=== PATIENT | male | born 1935 | race Caucasian/White ===

== ENCOUNTER 2017-10-23 15:46 | Inpatient (IN) ==
[2017-10-23] MEDS ORDERED: methylPREDNISolone 125 MG/2 ML VIAL IVP ONE (16:03)
[2017-10-23] MEDS ORDERED: 0.9 % Sodium Chloride 1,000 ML IVC ONE (16:06)
[2017-10-23 16:30] LABS: INR 1.5; Prothrombin Time 16.1 Seconds (9.4-12.1)
[2017-10-23 16:36] LABS: Potassium 6.2 mEq/L (3.5-4.5)
[2017-10-23 16:37] LABS: Calcium 9.1 mg/dL (8.6-10.8)
[2017-10-23 16:44] LABS: Basophils # 0.1 K/mcL (0.0-0.2); Basophils % 0.5 %; Eosinophils # 0.3 K/mcL (0.0-0.6); Eosinophils % 2.2 %; Hematocrit 34.4 % (37.5-50.1); Hemoglobin 10.5 g/dL (12.9-16.9); Immature Granulocytes % 1.3 % (0-4); Lymphocytes # 0.9 K/mcL (0.6-4.6); Lymphocytes % 6.7 %; Mean Corpuscular HGB Conc 30.5 g/dL (31.6-35.5); Mean Corpuscular Hemoglobin 22.8 pg (28.0-33.3); Mean Corpuscular Volume 74.8 fL (83.0-100.0); Monocytes # 0.9 K/mcL (0.0-1.3); Monocytes % 6.9 %; Neutrophils # 11.1 K/mcL (1.6-8.9); Platelet Count 329 K/mcL (140-400); Red Cell Distribution Width 16.9 % (11.5-14.5); Segmented Neutrophils % 82.4 %
[2017-10-23] MEDS: dilTIAZem HCl 100 MG in D5% in Water 50 ML IVC SCH (16:49)
--- NOTE | 2017-10-23 16:49 | Emergency Department Note ---
Disposition Clinical Impression: Hyperkalemia, Atrial fibrillation with rapid ventricular response Renal failure Qualifiers: Renal failure chronicity: acute Acute renal failure type: unspecified Qualified Code(s): N17.9 - Acute kidney failure, unspecified Disposition: Admitted As Inpatient Condition: Fair General Adult HPI - General Chief complaint: ED Shortness of Breath/Dyspnea Stated complaint: SOB Source: patient, family Limitations: no limitations Nursing Notes Reviewed: Yes Vital Signs Reviewed: Yes - History of Present Illness HPI Narrative: 82-year-old male with past medical history of asthma and uses emergency department with shortness of breath and urinary retention for last 5 days. Patient was seen in urgent care today and they sent him to the emergency department. Patient states that this is not feel like his asthma. He is also noticed some swelling in his lower extremities and feels as if his abdomen is more distended. Patient denies any chest pain, pressure, tightness, fever, chills, weakness, previous history of DVTs, calf pain. Pain Scale: 0 - Related Data Home Medications Medication Instructions Recorded Confirmed Garlic [Odor Free Garlic] 100 mg PO DAILY 10/23/17 10/23/17 Multivit-Min/FA/Lycopen/Lutein 1 tab PO DAILY 10/23/17 10/23/17 [Men 50 Plus Multivitamin Tab] Vitamin E Acetate [Vitamin E] 400 unit PO DAILY 10/23/17 10/23/17 Allergies Allergy/AdvReac Type Severity Reaction Status Date / Time aspirin Allergy Swelling Verified 10/23/17 15:50 of Lip/Tongue/Throat All systems ED: reviewed and negative except as stated. Review of Systems: As Per HPI Constitutional: Denies: fever, chills, weakness Cardiovascular: Reports: dyspnea on exertion. Denies: chest pain Respiratory: Reports: dyspnea Gastrointestinal: Denies: abdominal pain, nausea, vomiting Genitourinary: Denies: urgency, dysuria, frequency Past Medical History - Past Medical History Attestation: Yes The following information was validated with the patient. Medical history: Reports: asthma, other Psychiatric history: Reports: no psych history - Social History Smoking Status: Former smoker Smokeless Tobacco Status: No Alcohol use: Reports: none Drug use: Reports: none Physical Exam CONSTITUTIONAL: Alert and oriented X3, well-nourished, well appearing, in no apparent distress HEAD: Right eye appears very hazy EYES: PERRL, no scleral icterus. NOSE: The nose is normal in appearance without rhinorrhea RESP: Normal chest excursion with respiration; breath sounds clear and equal bilaterally; no wheezes, rhonchi, or rales CARD: irreegular rhythm, without murmurs, rub or gallop ABD: Mildly distended; non-tender, soft,without rigidity, rebound or guarding Lower extremities: 1+ pitting edema bilaterally SKIN: Normal for age and race; warm and dry; no apparent lesions - General Limitations: no limitations General appearance: alert, in no apparent distress Course Vital Signs Temperature 98.7 F 10/23/17 15:47 Pulse Rate 131 10/23/17 15:47 Respiratory Rate 22 10/23/17 15:47 Blood Pressure 151/88 10/23/17 15:47 O2 Sat by Pulse Oximetry 98 10/23/17 15:47 Temperature 98.3 F 10/23/17 21:09 Pulse Rate 110 10/23/17 21:09 Respiratory Rate 20 10/23/17 21:09 Blood Pressure 159/84 10/23/17 21:09 O2 Sat by Pulse Oximetry 97 10/23/17 21:09 Oxygen Delivery Oxygen Delivery Room Air Medical Decision Making - [facility] Narrative Medical decision making narrative: 82-year-old male presents to emergency department with shortness of breath and inability to urinate as well as concerned that the patient was in atrial fibrillation at urgent care. The electrocardiogram revealed atrial fibrillation with rapid ventricular response with a rate in the 130s. Patient had a creatinine of 17.42. He was hyperkalemic at 6.2. EKG read did not reveal any peak T waves. Patient's last creatinine in February of this year was within normal limits as well as the potassium. Bladder scan revealed 200 mLs of urine within the bladder. Dr. Pyle from nephrology was consulted and he stated to give 45 g of Kayexalate as well as start half normal saline at 125 mils per hour with 75 mEq of bicarbonate. There was also concern from the turner splitter machine operator asked to watch for volume overload and hypoxia. Patient's currently 97% on room air at this time. This is an asthma patient who had mild wheezes on lung exam. He was given 125 mg Solu-Medrol IV. Cardiology was consulted, and Dr. Randhawa agreed to follow patient on the case. He stated that the most important factor in controlling the atrial fibrillation would be to control the hyperkalemia. Patient was given 20 mg Cardizem bolus as well as started on Cardizem drip at 5 mg per hour. There was then titrated up to 10 mg per hour. Patient's chest x-ray revealed cardiomegaly but radiology did not appreciate any pleural effusions, but physical exam revealed mild abdominal distention with 1+ pitting edema. BNP is 737 which iw significantly increased from his previous one. This could either be due to his intermittent fibrillation with RVR or is decreased renal function. I discussed admission with the hospitalist and he agreed to accept the admission. I spoke with the patient and family at bedside and they agreed. Chest X-Ray 10/23/17 16:03 IMPRESSION: 1. No acute cardiopulmonary disease. 2. Cardiomegaly, without overt failure. D/ / Foreign Guy MD / Foreign Guy MD Interpreting Provider: Foreign Guy MD - Lab Data Result diagrams: 10/23/17 16:17 10/23/17 16:17 Lab Results 10/23/17 10/23/17 10/23/17 Range/Units 16:17 16:17 16:17 WBC 13.4 H (4.3-11.1) K/mcL RBC 4.60 (4.19-5.50) M/mcL Hgb 10.5 L (12.9-16.9) g/dL Hct 34.4 L (37.5-50.1) % MCV 74.8 L (83.0-100.0) fL MCH 22.8 L (28.0-33.3) pg MCHC 30.5 L (31.6-35.5) g/dL RDW 16.9 H (11.5-14.5) % Plt Count 329 (140-400) K/mcL MPV 10.0 (9.4-12.4) fL Immature Gran % 1.3 (0-4) % Seg Neutrophils % 82.4 % Lymphocytes % 6.7 % Monocytes % 6.9 % Eosinophils % 2.2 % Basophils % 0.5 % Neutrophils # 11.1 H (1.6-8.9) K/mcL Lymphocytes # 0.9 (0.6-4.6) K/mcL Monocytes # 0.9 (0.0-1.3) K/mcL Eosinophils # 0.3 (0.0-0.6) K/mcL Basophils # 0.1 (0.0-0.2) K/mcL PT 16.1 H (9.4-12.1) Seconds INR 1.5 Sodium 137 (136-145) mEq/L Potassium 6.2 H (3.5-4.5) mEq/L Chloride 100 (98-109) mEq/L Carbon Dioxide 18 L (19-29) mEq/L BUN 92 H (8-26) mg/dL Creatinine 17.42 H (0.72-1.25) mg/dL Est GFR ( Amer) 3 L (> 60) Est GFR (Non-Af Amer) 3 L (> 60) BUN/Creatinine Ratio 5 L (6-26) Glucose 113 H (70-99) mg/dL Calculated Osmolality 313 H (280-300) Calcium 9.1 (8.6-10.8) mg/dL Phosphorus 6.1 H (2.3-4.7) mg/dL Magnesium 3.3 H (1.6-2.6) mg/dL Troponin I (0-0.03) ng/mL B-Natriuretic Peptide (0-100) pg/mL TSH (0.350-4.840) mcIU/mL 10/23/17 10/23/17 10/23/17 Range/Units 16:17 16:17 16:17 WBC (4.3-11.1) K/mcL RBC (4.19-5.50) M/mcL Hgb (12.9-16.9) g/dL Hct (37.5-50.1) % MCV (83.0-100.0) fL MCH (28.0-33.3) pg MCHC (31.6-35.5) g/dL RDW (11.5-14.5) % Plt Count (140-400) K/mcL MPV (9.4-12.4) fL Immature Gran % (0-4) % Seg Neutrophils % % Lymphocytes % % Monocytes % % Eosinophils % % Basophils % % Neutrophils # (1.6-8.9) K/mcL Lymphocytes # (0.6-4.6) K/mcL Monocytes # (0.0-1.3) K/mcL Eosinophils # (0.0-0.6) K/mcL Basophils # (0.0-0.2) K/mcL PT (9.4-12.1) Seconds INR Sodium (136-145) mEq/L Potassium (3.5-4.5) mEq/L Chloride (98-109) mEq/L Carbon Dioxide (19-29) mEq/L BUN (8-26) mg/dL Creatinine (0.72-1.25) mg/dL Est GFR ( Amer) (> 60) Est GFR (Non-Af Amer) (> 60) BUN/Creatinine Ratio (6-26) Glucose (70-99) mg/dL Calculated Osmolality (280-300) Calcium (8.6-10.8) mg/dL Phosphorus (2.3-4.7) mg/dL Magnesium (1.6-2.6) mg/dL Troponin I 0.01 (0-0.03) ng/mL B-Natriuretic Peptide 737 H (0-100) pg/mL TSH 3.941 (0.350-4.840) mcIU/mL - EKG Data EKG #1 EKG attestation: Yes I reviewed and interpreted this EKG. EKG results narrative: 15:59 Ventricular rate 119 bpm, no P waves, QRS duration 170 ms, QT 314 ms, QTC 385 ms , left axis deviation Atrial fibrillation with rapid ventricular response with ventricular rate of 119 bpm. There are no peaked T waves. There are no ischemic ST changes noted on this electrocardiogram. Atrial fibrillation is new compared to a previous study performed on 03/16/2017. Attestation Statement - Attestation Attestation: I examined this patient and my medical decision-making was reviewed with the Resident Physician. I agree with the documented findings, disposition and treatment plan as described except to the extent set forth below. 82-year-old male presents ED because of urinary retention and rapid heart rate. He said inability to urinate today. He has also had increasing coughing and wheezing. He was seen in urgent care recently and started on ipratropium. He was seen back in urgent care and when he reportedly was unable to urinate, vital signs were obtained and found to be tachycardic. He was sent here for further evaluation. He denies any chest pain or discomfort. No change in his baseline dyspnea. No fevers or chills. No flank or back pain. No abdominal pain. Elderly male, hard of hearing, no apparent distress. Oropharynx extremities warm and dry. Neck supple. Chest with scattered expiratory wheezes. Cardiac exam tachycardic, irregular. No murmurs appreciated. Chest wall nontender. Abdomen soft nondistended nontender. No bladder distention appreciated. No flank tenderness. Extremities with symmetric, mild edema. EKG revealed atrial fibrillation with rapid ventricular response. His heart rate ranged from 120-140s. The onset of the defibrillation is uncertain. Point of care ultrasound revealed bladder with about 200-250 mL. No hydronephrosis noted. Labs reveal acute renal failure with a creatinine of 17 and a potassium 6.2, bicarbonate of 18. Chest x-ray with no acute changes. He started on Cardizem for rate control. He is also started on saline along with additional sodium bicarbonate to treat the metabolic acidosis. 45 g of Kayexalate for hyperkalemia. He will be admitted for further management and evaluation. The high probability of a clinically significant, sudden or life threatening deterioration of the [renal and cardiovsculr] system(s) required my full and direct attention, intervention and personal management. The aggregate critical care time was [35] minutes. This time is in addition to time spent performing reported procedures but includes the following: [x] Data Review and interpretation [x] Patient assessment and monitoring of vital signs [x] Documentation [x] Medication orders and management
[2017-10-23] MEDS ORDERED: Sodium Bicarbonate 50 MEQ/50 ML VIAL IVP ONE (17:12)
[2017-10-23 17:28] LABS: Magnesium 3.3 mg/dL (1.6-2.6); Phosphorous 6.1 mg/dL (2.3-4.7)
[2017-10-23] MEDS ORDERED: 0.9 % Sodium Chloride 250 ML ONE (22:17)
[2017-10-23] MEDS ORDERED: Naloxone 0.4 MG/ML INJ IVP PRN (23:01)
--- NOTE | 2017-10-23 23:01 | Internal Med History&Physical ---
<Bettina Perez - Last Filed: 10/24/17 02:29> Date of Encounter: 10/24/17 Time of Encounter: 22:55 Assessment and Plan (1) Atrial fibrillation with rapid ventricular response Current visit: Yes Status: Acute New onset A.fib with RVR EKG revealed atrial fibrillation with rapid ventricular response with a rate in the 130s. No peak T waves Considering underlying cause is urinary retention vs infectious vs cardiac related BNP 737 (previous 123) HR 118 Cardiology following Cardizem drip echo pending continuous cardiac monitoring (2) Renal failure Current visit: Yes Status: Acute Patient presented with acute renal failure creatinine 17.4 Most likely due to urinary retention that is probably due to outflow obstruction huang cath in place nephrology following IV fluids retroperintoneal U/S ordered close monitoring of creatinine strict I/O avoid nephrotixic agents Qualifiers: Renal failure chronicity: acute Acute renal failure type: unspecified Qualified Code(s): N17.9 - Acute kidney failure, unspecified (3) Hyperkalemia Current visit: Yes Status: Acute Potassium 6.2 EKG- A.fib with RVR. No peaked T waves sodium bicarbonate 75mg Kayexalate 45mg 1/2 Normal saline close monitoring of potassium continuous cardiac monitoring (4) Decreased urination Current visit: Yes Status: Acute Patient reports decreased urination. He has only urinated 2x a day with less urine and a weak stream. He normally urinates 6-7x day with nocturia 2x a night. He does not have a urologist. Denies dysuria, hematuria. Concern for urinary outflow obstruction possibly secondary to BPH bladder scan showed 700ml Huang cath placed and removed 1020ml urine. Straw colored urine. Urinalysis: + leukocyte esterase Cipro 200 BID retroperintoneal U/S ordered strict I/O (5) Asthma Current visit: Yes Status: Acute Patient has history of asthma. He has wheezing on exam. CXR- cardiomegaly duonebs albuterol prn Qualifiers: Qualified Code(s): J45.909 - Unspecified asthma, uncomplicated (6) DVT prophylaxis Current visit: Yes Status: Acute Internal Medicine - H&P: HPI Chief complaint: shortness of breathe Admitted From: Emergency Dept Plans for Post Hospital Care: Home History of present illness: Mr. Abreu is a 82 year old male with a past medical history of asthma presented to the ED complaining of shortness of breathe for the past 3 days that has not gotten better. He stated that his albuterol helped and that exerting himself made it worse. He only came to the ED at the insistence of his . He also reports that his abdomen is getting bigger for the past 3 weeks. He has been urinating less as well, only 2 times a day with less urine and a weak stream. He normally urinates 6-7x day with nocturia 2x a night. He does not have a urologist. He admits to wheezing. He denies headache, change in vision, syncope, chest pain, palpitations, cough, nausea, vomiting, itching, abdominal pain, diarrhea, dysuria, hematuria. He denies recent travel, sickness , fall, trauma. He quit smoking and drinking 40years ago. In the ED the patient was found to be in A.fib with RVR no peaked T waves. RUDDY creatinine 17.4 and potassium 6.2 Nephrology was consulted and recommended the patient get kayexalate and sodium bicarb. Cardiology was consulted and recommended cardizem drip. Past Med Surg Social Fam HX - Past Medical History Medical history: asthma, other Psychiatric history: no psych history - Past Surgical History Surgical History: no surgical history, other - Social History Smoking Status: Former smoker Smokeless Tobacco Status: No Alcohol use: none Drug use: none Current living situation: Home - Family History Mother Hx Family Cardiac Disorders: No Hx Family Cancer: No Internal Medicine - H&P: Meds Garlic [Odor Free Garlic] 100 mg PO DAILY 10/23/17 [History] Multivit-Min/FA/Lycopen/Lutein [Men 50 Plus Multivitamin Tab] 1 tab PO DAILY 05/04 [History] Vitamin E Acetate [Vitamin E] 400 unit PO DAILY 10/23/17 [History] 3 Allergy/AdvReac Type Severity Reaction Status Date / Time aspirin Allergy Swelling Verified 10/23/17 15:50 of Lip/Tongue/Throat All Systems PM: A 10-system review of systems was performed and is negative for pertinent findings except as documented above in the HPI. - Constitutional Constitutional: no chills, no fever(s), no falls - EENT Eyes: no blurry vision, no change in vision Nose, mouth and throat: no sore throat - Cardiovascular Cardiovascular ROS IM: no chest pain, no diaphoresis, no edema, no syncope - Respiratory Respiratory: dyspnea, wheezing, no cough, no stridor, no excessive phlegm production - Gastrointestinal Gastrointestinal: no abdominal pain, no hematemesis, no nausea, no vomiting - Genitourinary Genitourinary ROS male: difficulty urinating, no dysuria, no flank pain, no hematuria, no nocturia, no urinary frequency - Integumentary Integumentary IM: no pruritus, no rash - Neurological Neurological ROS: no dizziness, no focal weakness, no headache(s) - Constitutional Vitals: Temp Pulse Resp BP Pulse Ox 98.3 F 110 20 159/84 97 10/23/17 21:09 10/23/17 21:09 10/23/17 21:09 10/23/17 21:09 10/23/17 21:09 General appearance: Present: A&O X 3, pleasant, no acute distress - Head Head exam: Present: atraumatic, normocephalic - Eye Eye exam: Present: conjunctival injection. Absent: scleral icterus - ENT ENT exam: Present: mucous membranes moist - Neck Neck exam general surgery: Present: supple. Absent: lymphadenopathy, tenderness - Respiratory Respiratory exam: Present: wheezes (right upper lung). Absent: rales, rhonchi - Cardiovascular Cardiovascular exam: Present: irregular rhythm. Absent: clicks - GI/Abdominal GI/Abdominal exam: Present: distended, normal bowel sounds, soft. Absent: firm , guarding, tenderness - Extremities Exam Extremities exam: Present: normal inspection. Absent: calf tenderness, pedal edema - Back Exam Back exam: Present: normal inspection. Absent: rash noted, tenderness - Skin Skin exam: Present: dry, intact Internal Med - H&P Results - Labs CBC & Chem 7: 10/23/17 16:17 10/23/17 23:17 <Shayy Lin - Last Filed: 10/24/17 03:51> Date of Encounter: 10/23/17 Internal Medicine - H&P: HPI History of present illness: Mr. Abreu is a 82 year old male All Systems PM: A 10-system review of systems was performed and is negative for pertinent findings except as documented above in the HPI. - Constitutional Vitals: Temp Pulse Resp BP Pulse Ox 97.9 F 118 20 150/90 97 10/23/17 23:54 10/23/17 23:54 10/23/17 23:54 10/23/17 23:54 10/23/17 23:54 Internal Med - H&P Results - Labs CBC & Chem 7: 10/24/17 03:31 10/23/17 23:17 Labs: Short CBC 10/24/17 Range/Units 03:31 WBC 10.7 (4.3-11.1) K/mcL Hgb 9.7 L (12.9-16.9) g/dL Hct 30.6 L (37.5-50.1) % Plt Count 278 (140-400) K/mcL Neutrophils # 9.9 H (1.6-8.9) K/mcL BMP 10/23/17 23:17 Sodium 138 Potassium 6.1 H Chloride 102 Carbon Dioxide 16 L BUN 92 H Creatinine 17.20 H Glucose 164 H Calcium 9.0 Liver Function 10/23/17 Range/Units 23:17 Total Bilirubin 0.6 (0.2-1.2) mg/dL AST 18 (5-34) Units/L ALT 20 (0-55) Units/L Alkaline Phosphatase 80 (38-126) Units/L Albumin 2.6 L (3.5-5.0) g/dL Urine 10/24/17 Range/Units 00:10 Urine Color Dark Yellow (Yellow) Urine Clarity Cloudy A (Clear) Urine pH 6.0 (5.0-8.0) pH Units Ur Specific [place] 1.019 (1.010-1.025) Urine Protein Trace (Neg-Trace) mg/dL Urine Glucose (UA) Normal (Normal) mg/dL - Attending Attestation Patient was seen Dec , I personally seen and examined the patient and discuss with resident. Chest breath sounds shallow with scattered wheezing, in the abdomen soft nontender no organomegaly was on active extremities no edema neuro nonfocal. It appears to me that patient is gradually developing difficulty in micturition followed by nocturia and now having trouble urinating at all. On examination bladder seems full. A Huang catheter placed and immediately almost a liter of urine recovered which is straw color. Ultrasound of abdomen ordered to see if he has hydronephrosis contributing to post obstructive uropathy with elevated creatinine. He will be hydrated. His UA looks suspicious for infection and therefore urine culture requested and IV Cipro was started. He also has A. fib with RVR for which she is on IV Cardizem. Echocardiogram ordered. Nephrology has been consulted.
[2017-10-23] MEDS ORDERED: Ipratropium/Albuterol Neb 3 ML IH PRN (23:31)
[2017-10-23 23:55] LABS: Albumin 2.6 g/dL (3.5-5.0); Albumin/Globulin Ratio 0.6 (1.1-2.2); Bilirubin,Total 0.6 mg/dL (0.2-1.2); Globulin 4.6 g/dL (2.4-3.5); Potassium 6.1 mEq/L (3.5-4.5); Total Protein 7.2 g/dL (6.0-8.3)
[2017-10-24] MEDS ORDERED: Ipratropium/Albuterol Neb 3 ML IH SCH (00:15)
[2017-10-24 01:02] LABS: Bilirubin,Urine Negative (Negative); Blood,Urine Moderate (Negative); Clarity,Urine Cloudy (Clear); Color,Urine Dark Yellow (Yellow); Glucose,Urine (UA) Normal (Normal); Ketones,Urine Negative (Negative); Leukocyte Esterase,Urine Large (Negative); Nitrite,Urine Negative (Negative); Protein,Urine Trace mg/dL (Neg-Trace); Specific Gravity,Urine 1.019 (1.010-1.025); Urobilinogen,Urine Normal (Normal)
[2017-10-24 01:05] LABS: Hyaline Casts,Urine None Seen per lpf (None-Few); Squamous Epithelial Cell,Urine None Seen per lpf (None-Few); WBC,Urine TNTC per hpf (0-3)
[2017-10-24 01:06] LABS: Potassium,Urine 43.7 mEq/L
[2017-10-24 01:25] LABS: Bacteria,Urine Few per hpf (None-Few); RBC,Urine TNTC per hpf (0-3)
[2017-10-24] MEDS: Ipratropium/Albuterol Neb 3 ML IH SCH ×5 (01:35→22:45)
[2017-10-24 03:39] LABS: Basophils % 0.2 %; Hematocrit 30.6 % (37.5-50.1); Hemoglobin 9.7 g/dL (12.9-16.9); Immature Granulocytes % 1.1 % (0-4); Lymphocytes # 0.6 K/mcL (0.6-4.6); Lymphocytes % 5.3 %; Mean Corpuscular HGB Conc 31.7 g/dL (31.6-35.5); Mean Corpuscular Hemoglobin 23.2 pg (28.0-33.3); Mean Platelet Volume 9.6 fL (9.4-12.4); Monocytes # 0.1 K/mcL (0.0-1.3); Neutrophils # 9.9 K/mcL (1.6-8.9); Platelet Count 278 K/mcL (140-400); Red Blood Count 4.19 M/mcL (4.19-5.50); Red Cell Distribution Width 16.9 % (11.5-14.5); Segmented Neutrophils % 92.4 %
[2017-10-24 03:58] LABS: Calcium 8.2 mg/dL (8.6-10.8); Potassium 5.1 mEq/L (3.5-4.5)
[2017-10-24] MEDS: dilTIAZem HCl 100 MG in D5% in Water 50 ML IVC SCH ×2 (04:14→14:49)
[2017-10-24] MEDS ORDERED: Sodium Bicarbonate 150 MEQ in 0.45 % Sodium Chloride 1,000 ML IVC SCH (07:45)
--- NOTE | 2017-10-24 08:37 | Cardiology Consult Note ---
<Amandeep Calderón - Last Filed: 10/24/17 16:05> Date of Encounter: 10/24/17 Time of Encounter: 10:47 Assessment and Plan (1) Atrial fibrillation with rapid ventricular response Current Visit: Yes Status: Acute Afib RVR, likely secondary to renal status/hyperkalemia vs. infection Patient was started on Diltiazem drip + beta zuleyka, remains tachy 2007 Stress echo demonstrated mild AV thickening, Repeat Echo pending [id number], patient would benefit from anticoagulation, however when Heparinized the patient developed gross hematuria, so we will hold anticoagulation at this time Recommend increasing Metoprolol to 25mg BID We will continue to monitor this patient, status may improve with resolution of secondary causes (2) RUDDY (acute kidney injury) Current Visit: Yes Status: Acute Management per nephrology (3) Hyperkalemia Current Visit: Yes Status: Acute Hyperkalemia secondary to renal failure Likely plays a role in the patient's current AFib RVR Hyperkalemia managed by Nephrology Discussion w patient/family: The assessment and plan as outlined above was discussed with the patient and/or family members who expressed understanding and agreement. All questions were answered. Thank you for involving us in the care of your patient. Please call with any questions. History of Present Illness Consult date: 10/23/17 Requesting physician: Venu Mathis Consult reason: AFib RVR Chief complaint: Shortness of breath History of present illness: Mr. Abreu is a 82 year old male with history of Asthma who presented to the ED yesterday with increasing SOB for 3 days duration. The patient is mildly confused at time of exam, however is orientedx3. The patient has experienced increasing dyspnea x3 days that is worsened by exertion and improved with rest. In addition to these symptoms, the patient suggest that he's noticed increased distention in his abdomen that has been worsening over the past 3 weeks, and is accompanied by swelling in his legs. He has been experiencing urinary symptoms with decreased frequency and nocturia. He denies chest pain, palpitations, n/v. He is a former smoker. In the ED the patient had an EKG that demonstrated Afib RVR, and a BNP of 737. CXR demonstrated cardiomegaly without overt signs of CHF, trop negative. The patient appears to have had a stress echo in 2007 that demonstrated LVEF 60% with mild AV thickening, but no significant valvular or wall dysfunction. The patient was found to have Serum Cr 17.2, K+ 6.1, estimated GFR 4. UA showed signs of UTI. Nephrology is on board. Past Med Surg Social Fam HX - Past Medical History Medical history: asthma, other Psychiatric history: no psych history - Past Surgical History Surgical History: no surgical history, other - Social History Smoking Status: Former smoker Smokeless Tobacco Status: No Alcohol use: none Drug use: none - Family History Mother Hx Family Cardiac Disorders: No Hx Family Cancer: No Medications and Allergies Garlic [Odor Free Garlic] 100 mg PO DAILY 10/23/17 [History] Multivit-Min/FA/Lycopen/Lutein [Men 50 Plus Multivitamin Tab] 1 tab PO DAILY 05/04 [History] Vitamin E Acetate [Vitamin E] 400 unit PO DAILY 10/23/17 [History] 3 Allergy/AdvReac Type Severity Reaction Status Date / Time aspirin Allergy Swelling Verified 10/23/17 15:50 of Lip/Tongue/Throat - Constitutional Constitutional: no anorexia, no chills, no fever(s), no lethargy - EENT Eyes: no loss of vision Nose, mouth and throat: no epistaxis - Cardiovascular Cardiovascular: dyspnea at rest, orthopnea, no chest pain at rest, no chest pain with exertion, no palpitations, no paroxysmal nocturnal dyspnea - Respiratory Respiratory: dyspnea, no cough - Gastrointestinal Gastrointestinal: no abdominal pain, no constipation, no diarrhea, no hematochezia, no melena - Genitourinary Genitourinary: dysuria, nocturia, no hematuria - Musculoskeletal Musculoskeletal: no arthralgias, no muscle weakness, no myalgias - Integumentary Integumentary: no erythema, no rash - Neurological Neurological: no abnormal speech, no dizziness, no focal weakness, no loss of vision, no syncope - Hematological/Lymphatic Hematologic/Lymphatic: no easy bleeding Physical Examination General: Conversant, No Apparent Distress HEENT: Atraumatic, Normocephaly, Mucus Membranes Moist, Other (R eye conjunctival injection with upward medial deviation that is not new) Neck: No JVD, Normal carotid pulses Cardiac: Normal S1 and S2, No Murmur, Other (Irregularly irregular, rapid) Lungs: Normal Breath Sounds, Other (generalized coarse lung sounds) Neuro: Alert and responsive, No focal deficits noted Abdomen: Soft, Non-Tender Skin: No rashes noted on visualized skin Musculoskeletal: No Chest Wall Tenderness Extremities: No Clubbing, No Cyanosis, Normal Pulses, Other (+1 edema in LEs b/l ) Results 10/24/17 11:44 10/24/17 03:31 Consult Discharge Plan - Plan Referrals: Joshua Narvaez, SENIOR HARDWARE DESIGN ENGINEER [Primary Care Provider] - <Ernestine Randhawa - Last Filed: 10/25/17 12:43> Date of Encounter: 10/25/17 - Attending Attestation 82 YOM with new onset Afib with RVR currently rate controlled. Patient with recent Volume overload and possible decompensated CHF (with preserved EF 55%). Hyperkalemia and metabolic acidosis with volume overload/ARF likely culprit for afib and difficulty controlling the rate. On review of ECHO seems to have features of intermediate designer afib. Patient asymptomatic denies palpitations so possibly chronic AFIB and severly dilated LA. Improvement of underlying comorbidities will help with better control of afib. AC if no contraindication for stroke risk reduction prior to DC. OP NST to rule out ischemia is reasonable. Assessment and Plan Discussion w patient/family: The assessment and plan as outlined above was discussed with the patient and/or family members who expressed understanding and agreement. All questions were answered. Thank you for involving us in the care of your patient. Please call with any questions. History of Present Illness History of present illness: Mr. Abreu is a 82 year old male All Systems Review: A 10-system review of systems was performed and is negative for pertinent findings except as documented above in the HPI. Physical Examination Vital Signs, Last 4 Hours Temp Pulse Resp BP Pulse Ox 10/25/17 11:02 98.4 F 95 18 113/70 99 10/25/17 10:59 18 97 10/25/17 09:57 113/71 Results 10/25/17 00:36 10/25/17 00:36 Lab Results 10/24/17 10/25/17 10/25/17 21:19 00:36 00:36 WBC 15.3 H Hgb 9.0 L Hct 29.3 L Plt Count 370 APTT 30.2 Sodium 140 Potassium 4.2 Chloride 104 Carbon Dioxide 28 BUN 45 H D Creatinine 3.27 H D Glucose 130 H Calcium 8.4 L Magnesium 2.4 B-Natriuretic Peptide 10/25/17 00:36 WBC Hgb Hct Plt Count APTT Sodium Potassium Chloride Carbon Dioxide BUN Creatinine Glucose Calcium Magnesium B-Natriuretic Peptide 625 H
--- NOTE | 2017-10-24 09:26 | Internal Med Progress Note ---
Date of Encounter: 10/24/17 Time of Encounter: 08:55 - Assessment and plan (1) Acute renal failure Current Visit: Yes Status: Acute Assessment and plan: Of unclear etiology, however likely secondary to bladder outlet obstruction Renal function improved from previous day f/u Renal US continue bicarb infusion Nephrology consultation requested Hyperkalemia improved continue to avoid nephrotoxic agents will continue to closely monitor Qualifiers: Acute renal failure type: unspecified Qualified Code(s): N17.9 - Acute kidney failure, unspecified (2) Metabolic acidosis Current Visit: Yes Status: Acute Assessment and plan: likely secondary to acute renal failure Noted to have bicarb deficit of 7.28 started on Bicarb infusion (3amp of bicarb in 0.45%NS at 125cc/hr) will continue to closely monitor (3) UTI (urinary tract infection) Current Visit: Yes Status: Acute Assessment and plan: f/u urine cultures continue empiric abx Qualifiers: Urinary tract infection type: site unspecified Hematuria presence: without hematuria Qualified Code(s): N39.0 - Urinary tract infection, site not specified (4) Hyperkalemia Current Visit: Yes Status: Acute Assessment and plan: Improved since admission will continue to closely monitor (5) Atrial fibrillation with rapid ventricular response Current Visit: Yes Status: Acute Assessment and plan: Continue Cardizem gtt TSH wnl etiology unclear, likely secondary to underlying uremia added low dose BB CHADVASC score: 2 (moderate to high risk), will defer to cardiology for senior living anticoagulation continue tele monitoring cardiology evaluation requested by the ER physician (6) Asthma Current Visit: Yes Status: Acute Assessment and plan: SOB improved since admission continue O2 supplementation and bronchodilator support as needed Qualifiers: Asthma severity: unspecified severity Asthma persistence: unspecified Asthma complication type: unspecified Qualified Code(s): J45.909 - Unspecified asthma, uncomplicated (7) DVT prophylaxis Current Visit: Yes Status: Acute Assessment and plan: Heparin SQ (8) Obesity (BMI 30.0-34.9) Current Visit: Yes Status: Acute (9) Decreased urination Current Visit: Yes Status: Acute Assessment and plan: No prior history of BPH or bladder outlet obstruction (upon arrival was found to have 700ml of urine removed once huang cath was placed) will f/u renal US will consider urology evaluation based on US findings - Subjective Interval history: Patient seen and examined at bedside. Resting in chair and reports of improvement in his SOB. Remains in Afib with RVR with HR in 120s, requiring IV cardizem gtt Renal function improved from previous day AGMA persists, likely secondary to acute renal renal failure. noted to have bicarb deficit of 7.28am. d/c iV fluids and started IVF infusion of 3amp NaBicarb in 0.45%NS @ 125cc/hr Hyperkalemia improved - Constitutional Vitals: Temp Pulse Resp BP Pulse Ox 97.9 F 117 18 141/84 95 10/24/17 06:33 10/24/17 06:33 10/24/17 06:33 10/24/17 06:33 10/24/17 06:33 General appearance: Present: A&O X 3, pleasant, no acute distress Internal Medicine: Result - Labs CBC & Chem 7: 10/24/17 03:31 10/24/17 03:31 - ABG Interpretation ABG results: PT/INR, D-dimer PT 16.1 Seconds (9.4-12.1) H 10/23/17 16:17 Consult Discharge Plan - Plan Referrals: Joshua Narvaez, CRITICAL CARE CLINICAL NURSE SPECIALIST [Primary Care Provider] -
--- NOTE | 2017-10-24 09:58 | Nephrology Consult Note ---
Date of Encounter: 10/24/17 Time of Encounter: 08:30 Assessment and Plan (1) RUDDY (acute kidney injury) Current Visit: Yes Status: Acute Nonoliguric RUDDY suspect multifactorial from presumed post-renal to volume depletion. SCr rapidly correcting with IVF Agree with bicarb gtt for the AGMA (most likely secondary to the severe AK), and should aim for an isotonic IVF such as D5 with 150mEq of bicarb He was not uremic on exam and the hyperkalemia medically improved. He was not requiring O2 to maintain stats so he is not volume overloaded. I recommend ongoing medical therapy and volume repletion for this gentleman today. If he were to become uremic or develop refractory hyperkalemia or fluid overloaded ( again today he appears intravascularly dry), then he may still require ASSISTANT DIRECTOR OF ADMISSIONS, but not today. Pending renal U/S. Update: renal U/S did reveal "mild bilateral hydronephrosis" This was likely much worse until a huang catheter was placed. Agree with huang. He may need to see Urology. He has microscopic hematuria and hydronephrosis, so he may need cystoscopy at some point. The hematuria could also potentially be d/ t placement of the huang. UA did not appear active (I would expect trace levels of proteinuria from tubular damage in pt's d/t the RUDDY), though to be sure, I recommend checking serologies to work up for a GN or paraproteinemia. AF: cardio following Meanwhile continue to follow a renal protective strategy; avoid NSAIDs, IV contrast, Bactrim. Thank you for consulting the [facility] group. My colleague Dr. Bell will be on-call starting tomorrow at 8am. (2) Atrial fibrillation with rapid ventricular response Current Visit: Yes Status: Acute See above. AF could contribute to RUDDY from poor hemodynamics. As per primary and /or cardio (3) Hyperkalemia Current Visit: Yes Status: Resolved Low K+ diet. Avoid any Rx that could induce RUDDY such as an JODI or ARB (4) Metabolic acidosis Current Visit: Yes Status: Resolved Bicarb gtt. See above (5) Bilateral hydronephrosis Current Visit: Yes Status: Acute As noted on renal U/S and is the most likely etiology for this severe RUDDY. Appreciate Urology. Taking care of this underlying condition will help correct/ address this RUDDY. History of Present Illness - Reason for Consult Consult date: 10/24/17 Acute Kidney Injury, hyperkalemia, metabolic acidosis Requesting physician: Rebecca Moise - Chief Complaint RUDDY - History of Present Illness Arron Abreu is a very pleasant 82 y/o WM with a pmh of HTN, BPH and et al who presented with vague complaints including shortness of breath to the [facility] ER, which was were it was noted that he was in renal failure. He denied ever having seen another check embosser in the past. He voiced affirmation that he lost his appetite about 1 week ago, has been eating less and drinking less fluids than his usual. He also reported that he was not able to pass urine in the last few days. He denied OTC NSAIDS. He denied having a recent LHC or CT with IV contrast. He was being prepped to Radiology for imaging and the transporter was present. Pt of the interview and exam was while he was being prepped for transportation. He denied CP, vomiting or diarrhea. He denied feeling bloated in his abd, but by this point, he already had a huang catheter in place. He said that he had damaged his right eye many years ago. FHx: he denied having other first degree relatives with ESRD. Past Med Surg Social Fam HX - Past Medical History Medical history: asthma, other Psychiatric history: no psych history - Past Surgical History Surgical History: no surgical history, other - Social History Smoking Status: Former smoker Smokeless Tobacco Status: No Alcohol use: none Drug use: none - Family History Mother Hx Family Cardiac Disorders: No Hx Family Cancer: No Medications and Allergies Garlic [Odor Free Garlic] 100 mg PO DAILY 10/23/17 [History] Multivit-Min/FA/Lycopen/Lutein [Men 50 Plus Multivitamin Tab] 1 tab PO DAILY 05/04 [History] Vitamin E Acetate [Vitamin E] 400 unit PO DAILY 10/23/17 [History] 3 Allergy/AdvReac Type Severity Reaction Status Date / Time aspirin Allergy Swelling Verified 10/23/17 15:50 of Lip/Tongue/Throat Review of Systems All Systems: reviewed and no additional remarkable complaints except as stated Exam - Vital Signs Vital signs: Initial Vital Signs Temp Pulse Resp BP Pulse Ox 98.7 F 131 22 151/88 98 10/23/17 15:47 10/23/17 15:47 10/23/17 15:47 10/23/17 15:47 10/23/17 15:47 Intake and Output 10/23/17 10/24/17 10/24/17 23:59 07:59 15:59 Intake Total 252 / 252 Output Total 1000 / 1000 Balance -748 / -748 Intake: IV Fluids Cardizem 100 MG In Dextrose 5% (ADD-Alexander) 50 ML @ 5 MG/HR 2 .5 mls/hr IVC .Q20H JOSESITO Rx#: [id number] Oral 240 / 240 Output: Catheter 1000 / 1000 Other: Meal Breakfast Percent of Meal Consumed 80% - General Appearance General appearance: well-developed, appears started age, chronically ill, frail EENT: ATNC, mucous membranes moist Additional Comments: Right eye blindness noted Neck: supple Respiratory: clear Cardiology: holosystolic murmur, no edema (ankle edema noted b/l), irregular rhythm, normal S1, normal S2 Gastrointestinal: normoactive bowel sounds, no tenderness, no guarding, no organomegaly Integumentary: warm and dry Neurologic: no asterixis, alert and oriented x3 Additional Comments: Hard of hearing Musculoskeletal: no erythema, no cyanosis, no clubbing Psychiatric: mood/affect appropriate, cooperative Results - Lab Results 10/28/17 00:14 10/28/17 00:14 Most recent lab results Calcium 8.2 mg/dL (8.6-10.8) L 10/24/17 03:31 Phosphorus 6.1 mg/dL (2.3-4.7) H 10/23/17 16:17 Magnesium 3.3 mg/dL (1.6-2.6) H 10/23/17 16:17 Urine Sodium 40.0 mEq/L 10/24/17 00:10 I reviewed the labs, med lists, vitals and I/Os, progress notes and imaging. - Image Kidney/bladder ultrasound: report reviewed Consult Discharge Plan - Plan Referrals: Joshua Narvaez, MUSHROOM GROWING SUPERVISOR [Primary Care Provider] -
[2017-10-24] MEDS ORDERED: Perflutren Lipid Microsphere 1.3 ML in 0.9 % Sodium Chloride 8.7 ML IVP ONE (10:16)
[2017-10-24] MEDS ORDERED: *HR* Heparin 5,000 UNIT/ML VIAL IVP PRN ×2 (11:35)
[2017-10-24] MEDS ORDERED: *HR* Heparin 5,000 UNIT/ML VIAL IVP ONE (11:35)
[2017-10-24] MEDS ORDERED: Heparin 25,000 UNIT/500 ML D5W 25,000 UNIT/500 ML BAG IVC SCH (11:45)
[2017-10-24 11:57] LABS: Hematocrit 29.9 % (37.5-50.1); Hemoglobin 9.3 g/dL (12.9-16.9); Mean Corpuscular HGB Conc 31.1 g/dL (31.6-35.5); Mean Corpuscular Hemoglobin 22.7 pg (28.0-33.3); Mean Corpuscular Volume 73.1 fL (83.0-100.0); Mean Platelet Volume 9.6 fL (9.4-12.4); Platelet Count 299 K/mcL (140-400); Red Blood Count 4.09 M/mcL (4.19-5.50); Red Cell Distribution Width 16.9 % (11.5-14.5)
[2017-10-24 12:03] LABS: INR 1.5; Prothrombin Time 16.4 Seconds (9.4-12.1)
[2017-10-24] MEDS: Sodium Bicarbonate 150 MEQ in D5% in Water 1,000 ML IVC SCH (12:21)
[2017-10-24] MEDS ORDERED: *HR* Heparin 5,000 UNIT/ML VIAL SQ SCH (18:00)
[2017-10-24] MEDS ORDERED: Haloperidol Lactate 5 MG/ML VIAL IM STA (18:34)
[2017-10-24] MEDS ORDERED: Haloperidol Lactate 5 MG/ML VIAL ONE (18:35)
--- NOTE | 2017-10-24 18:46 | Electrocardiograph Report ---
[place] [id number] Test Date: 2017-10-23 Pat Name: Arron Abreu Department: 103 Room: 2NE16 Gender: M Electromechanisms Design Drafter: BO : 1935 Requested By: Sharda See Order Number: [id number] Reading MD: Darrin Reece DO Measurements Intervals Bledsoe Rate: 119 P: NM: 0 QRS: -56 QRSD: 117 T: 32 QT: 314 QTc: 385 Interpretive Statements ATRIAL FIBRILLATION WITH RAPID VENTRICULAR RESPONSE MARKED LEFT AXIS DEVIATION INCOMPLETE RIGHT BUNDLE BRANCH BLOCK Electronically Signed On 10-24-2017 18:44:15 EST by Darrin Reece DO
[2017-10-24] MEDS ORDERED: *HR* LORazepam 2 MG/ML VIAL IVP ONE (22:00)
[2017-10-25] MEDS ORDERED: *HR* LORazepam 2 MG/ML VIAL IVP PRN (00:22)
[2017-10-25 00:45] LABS: Basophils % 0.1 %; Eosinophils % 0.1 %; Hematocrit 29.3 % (37.5-50.1); Immature Granulocytes % 1.9 % (0-4); Lymphocytes % 6.8 %; Mean Corpuscular HGB Conc 30.7 g/dL (31.6-35.5); Mean Corpuscular Hemoglobin 22.7 pg (28.0-33.3); Mean Platelet Volume 9.4 fL (9.4-12.4); Monocytes # 1.3 K/mcL (0.0-1.3); Monocytes % 8.5 %; Neutrophils # 12.6 K/mcL (1.6-8.9); Platelet Count 370 K/mcL (140-400); Red Blood Count 3.96 M/mcL (4.19-5.50); Red Cell Distribution Width 16.6 % (11.5-14.5); Segmented Neutrophils % 82.6 %
--- NOTE | 2017-10-25 00:52 | Urology - Consult Note ---
Date of Encounter: 10/25/17 Time of Encounter: 00:50 - Assessment and Plan (1) Dislodged Reyes catheter Current Visit: Yes Status: Acute Assessment and plan: able to place a [address] irrigated easily. initially drainage of 600 c urine. no need for CBI now but nurses will watch urine. Qualifiers: Encounter type: initial encounter Qualified Code(s): T83.021A - Displacement of indwelling urethral catheter, initial encounter Urology CN:HPI Consult date: 10/25/17 Reason for consult Urology: Gross Hematuria History of present illness: 82 yo traumaticaly removed cath early evening. nurses able to replace cath but would not drain or irrigate. Past Med Surg Social Fam HX - Past Medical History Medical history: asthma, other Psychiatric history: no psych history - Past Surgical History Surgical History: no surgical history, other - Social History Smoking Status: Former smoker Smokeless Tobacco Status: No Alcohol use: none Drug use: none - Family History Mother Hx Family Cardiac Disorders: No Hx Family Cancer: No Medications and Allergies Garlic [Odor Free Garlic] 100 mg PO DAILY 10/23/17 [History] Multivit-Min/FA/Lycopen/Lutein [Men 50 Plus Multivitamin Tab] 1 tab PO DAILY 05/04 [History] Vitamin E Acetate [Vitamin E] 400 unit PO DAILY 10/23/17 [History] 3 Allergy/AdvReac Type Severity Reaction Status Date / Time aspirin Allergy Swelling Verified 10/23/17 15:50 of Lip/Tongue/Throat Review of Systems ROS unobtainable: due to mental status Exam Initial Vital Signs Temp Pulse Resp BP Pulse Ox 98.7 F 131 22 151/88 98 10/23/17 15:47 10/23/17 15:47 10/23/17 15:47 10/23/17 15:47 10/23/17 15:47 - General physical appearance Present: no distress, no pain, chronically ill - Eyes Present: other - ENT Present: normal nares - Neck Present: no masses - Respiratory Present: normal respiratory effort - Cardiovascular Cardiovascular exam IM: RRR - Abdomen Abdomen: Present: soft, suprapubic tenderness - Integumentary Present: no rash - Neurologic Present: other - Additional Findings pt did not open eyes or commnicate responded to painful stimuli significant dry blood on genitals and in bed. Urology Results - Labs 10/25/17 00:36 10/24/17 03:31 Abnormal lab results WBC 15.3 K/mcL (4.3-11.1) H 10/25/17 00:36 RBC 3.96 M/mcL (4.19-5.50) L 10/25/17 00:36 Hgb 9.0 g/dL (12.9-16.9) L 10/25/17 00:36 Hct 29.3 % (37.5-50.1) L 10/25/17 00:36 MCV 74.0 fL (83.0-100.0) L 10/25/17 00:36 MCH 22.7 pg (28.0-33.3) L 10/25/17 00:36 MCHC 30.7 g/dL (31.6-35.5) L 10/25/17 00:36 RDW 16.6 % (11.5-14.5) H 10/25/17 00:36 Neutrophils # 12.6 K/mcL (1.6-8.9) H 10/25/17 00:36 PT 16.4 Seconds (9.4-12.1) H 10/24/17 11:44 Potassium 5.1 mEq/L (3.5-4.5) H D 10/24/17 03:31 Carbon Dioxide 15 mEq/L (19-29) L 10/24/17 03:31 BUN 76 mg/dL (8-26) H 10/24/17 03:31 Creatinine 12.07 mg/dL (0.72-1.25) H 10/24/17 03:31 Est GFR ( Amer) 5 (> 60) L 10/24/17 03:31 Est GFR (Non-Af Amer) 4 (> 60) L 10/24/17 03:31 Glucose 159 mg/dL (70-99) H 10/24/17 03:31 Calculated Osmolality 316 (280-300) H 10/24/17 03:31 Calcium 8.2 mg/dL (8.6-10.8) L 10/24/17 03:31 Phosphorus 6.1 mg/dL (2.3-4.7) H 10/23/17 16:17 Magnesium 3.3 mg/dL (1.6-2.6) H 10/23/17 16:17 B-Natriuretic Peptide 737 pg/mL (0-100) H 10/23/17 16:17 Albumin 2.6 g/dL (3.5-5.0) L 10/23/17 23:17 Globulin 4.6 g/dL (2.4-3.5) H 10/23/17 23:17 Albumin/Globulin Ratio 0.6 (1.1-2.2) L 10/23/17 23:17 Urine Clarity Cloudy (Clear) A 10/24/17 00:10 Urine Blood Moderate (Negative) H 10/24/17 00:10 Ur Leukocyte Esterase Large (Negative) H 10/24/17 00:10 Urine Microscopic RBC TNTC per hpf (0-3) H 10/24/17 00:10 Urine Microscopic WBC TNTC per hpf (0-3) H 10/24/17 00:10 Ur Culture Indicated? YES (NO) A 10/24/17 00:10 All other labs normal. Procedures:Urology - Catheter Insertion (Urinary) Estimated amount of urin (mLs): 600 Preparation: Povidone-Iodine Type of catheter inserted: 3 way Catheter [place] Size: 24 (hematuria) Topical anesthesia used: Yes Results: successfully catheterized-immediate flow Urine Appearance: Hematuria (light) Patient tolerated procedure: well Complications: none Additional comments: able to pass 24 [place] hematuria cath. irrigated with NS and returned only one small clot. no need for CBI at this moment Consult Discharge Plan - Plan Referrals: Joshua Narvaez, RECRUITING ASSOCIATE [Primary Care Provider] -
[2017-10-25 00:59] LABS: Calcium 8.4 mg/dL (8.6-10.8); Magnesium 2.4 mg/dL (1.6-2.6); Phosphorous 3.4 mg/dL (2.3-4.7); Potassium 4.2 mEq/L (3.5-4.5)
[2017-10-25] MEDS: Sodium Bicarbonate 150 MEQ in D5% in Water 1,000 ML IVC SCH (01:16)
[2017-10-25] MEDS: Ipratropium/Albuterol Neb 3 ML IH SCH ×4 (04:13→22:50)
[2017-10-25] MEDS: dilTIAZem HCl 100 MG in D5% in Water 50 ML IVC SCH ×3 (04:33→22:49)
--- NOTE | 2017-10-25 05:57 | Event Note ---
Date of Encounter: 10/25/17 Time of Encounter: 05:55 #1 patient pulled out his Reyes catheter with balloon inflated, cause significant bleed with blood clots. Bleeding could not be stopped and nurses were unable to pass catheter. Patient bladder noted to be distended therefore I called urology and requested a Reyes catheter. CBI started. Number 2R and called this morning around 5:30 AM the patient's lung sounds wet. Patient seen and although I did not hear much on chest examination and noted his JVD is elevated. Recommend IV Lasix 20 a P chest x-ray. His bicarbonate drip can be continued at the same rate however are not suggested to reduce IV bicarbonate drip. Instead of giving Lasix. I think giving Lasix is reasonable but advised her to contact nephrology. This morning his creatinine is only 3. He might need an echocardiogram to facilitate further IV fluid therapy.
[2017-10-25] MEDS ORDERED: Furosemide 20 MG/2 ML VIAL IVP ONE (06:01)
[2017-10-25 08:16] LABS: Hepatitis A Antibody IgM Nonreactive (Nonreactive); Hepatitis B Core IgM Nonreactive (Nonreactive); Hepatitis B Surface Antigen Nonreactive (Nonreactive); Hepatitis C Virus Antibody Nonreactive (Nonreactive)
--- NOTE | 2017-10-25 09:21 | Cardiology Progress Note ---
<Amandeep Calderón - Last Filed: 10/25/17 13:31> Date of Encounter: 10/25/17 Time of Encounter: 09:30 Assessment and Plan (1) Atrial fibrillation with rapid ventricular response Current Visit: Yes Status: Acute Afib RVR, likely secondary to renal status/hyperkalemia vs. infection HR improved overnight, range 80-103 with significant fluctuation Patient remains on Cardizem 15 drip, metoprolol 25mg BID Echo shows LVEF 55% with severely dilated LA/RA [id number], patient would benefit from anticoagulation, however he is poor candidate due to urological bleeding Recommend transition to PO Cardizem CD 120mg qd, titrate down drip to HR <100. Continue Metoprolol If RVR persists, patient may benefit from AV-geraldine ablation with pacer insertion. Afib RVR possibly long standing given clinical and echo appearance From cardiology stand-point, patient can go home for HR < 100 (2) RUDDY (acute kidney injury) Current Visit: Yes Status: Acute Management per nephrology (3) Hyperkalemia Current Visit: Yes Status: Resolved Resolved Discussion w patient/family: The assessment and plan as outlined above was discussed with the patient and/or family members who expressed understanding and agreement. All questions were answered. Thank you for involving us in the care of your patient. Please call with any questions. Subjective Principal diagnosis: Afib RVR Interval history: The patient had episodes of disorientation and agitation over night, ripped his huang catheter out. Urology on board. New CXR shows vascular congestion. Objective Vital Signs, Last 4 Hours Temp Pulse Resp BP Pulse Ox 10/25/17 07:59 98 F 101 16 132/80 95 10/25/17 06:47 96 16 114/70 95 General: No Apparent Distress, Other (Flat affect) HEENT: Atraumatic, Normocephaly, Mucus Membranes Moist Neck: Normal carotid pulses, Other (JVD present on exam) Cardiac: Reg Rate and Rhythm, Normal S1 and S2, No Murmur Lungs: Normal Breath Sounds, Other (bibasilar rales) Neuro: Alert and responsive, No focal deficits noted Abdomen: Soft, Non-Tender Skin: No rashes noted on visualized skin Musculoskeletal: No Chest Wall Tenderness Extremities: No Clubbing, No Cyanosis, Normal Pulses, Other (1+ b/l LE edema) Results 10/25/17 00:36 10/25/17 00:36 Lab Results 10/24/17 10/24/17 10/24/17 11:44 11:44 21:19 WBC 10.7 Hgb 9.3 L Hct 29.9 L Plt Count 299 INR 1.5 APTT 32.0 30.2 Sodium Potassium Chloride Carbon Dioxide BUN Creatinine Glucose Calcium Magnesium B-Natriuretic Peptide 10/25/17 10/25/17 10/25/17 00:36 00:36 00:36 WBC 15.3 H Hgb 9.0 L Hct 29.3 L Plt Count 370 INR APTT Sodium 140 Potassium 4.2 Chloride 104 Carbon Dioxide 28 BUN 45 H D Creatinine 3.27 H D Glucose 130 H Calcium 8.4 L Magnesium 2.4 B-Natriuretic Peptide 625 H - Imaging and Cardiology Chest Xray: image reviewed Echo: report reviewed Consult Discharge Plan - Plan Referrals: Joshua Narvaez, AUDIO OPERATOR [Primary Care Provider] - <Ernestine Randhawa - Last Filed: 10/25/17 15:53> Date of Encounter: 10/25/17 Assessment and Plan (1) Atrial fibrillation with rapid ventricular response Current Visit: Yes Status: Acute Afib RVR, likely secondary to renal status/hyperkalemia vs. infection HR improved overnight, range 80-103 with significant fluctuation Patient remains on Cardizem 15 drip, metoprolol 25mg BID Echo shows LVEF 55% with severely dilated LA/RA [id number], patient would benefit from anticoagulation, however he is poor candidate due to urological bleeding Recommend transition to PO Cardizem CD 120mg qd, titrate down drip to HR <100. Continue Metoprolol If RVR persists, patient may benefit from AV-geraldine ablation with pacer insertion. Afib RVR possibly long standing given clinical and echo appearance From cardiology stand-point, patient can go home for HR < 100 I examined this patient and my medical decision-making was reviewed with the Resident Physician. I agree with the documented findings, disposition and treatment plan as described except to the extent set forth below. above , likely chronic afib with dilated LA, transition to PO cardiazem. Consider AVN ablation and PPM if continues to be difficult to control and symptomatic. Discussion w patient/family: The assessment and plan as outlined above was discussed with the patient and/or family members who expressed understanding and agreement. All questions were answered. Thank you for involving us in the care of your patient. Please call with any questions. Objective Vital Signs, Last 4 Hours BP 10/25/17 13:39 122/74 Results 10/25/17 00:36 10/25/17 00:36 Lab Results 10/24/17 10/25/17 10/25/17 21:19 00:36 00:36 WBC 15.3 H Hgb 9.0 L Hct 29.3 L Plt Count 370 APTT 30.2 Sodium 140 Potassium 4.2 Chloride 104 Carbon Dioxide 28 BUN 45 H D Creatinine 3.27 H D Glucose 130 H Calcium 8.4 L Magnesium 2.4 B-Natriuretic Peptide 10/25/17 00:36 WBC Hgb Hct Plt Count APTT Sodium Potassium Chloride Carbon Dioxide BUN Creatinine Glucose Calcium Magnesium B-Natriuretic Peptide 625 H
--- NOTE | 2017-10-25 10:11 | Internal Med Progress Note ---
Date of Encounter: 10/25/17 Time of Encounter: 09:10 - Assessment and plan (1) Acute renal failure Current Visit: Yes Status: Acute Assessment and plan: Of unclear etiology, however likely secondary to bladder outlet obstruction Renal function improved from previous day Renal US reported Mild bilateral hydronephrosis IV fluids discontinued due to pulmonary congestion Pt received one dose of Lasix 20mg IV this morning Nephrology on board and consultation appreciated Hyperkalemia resolved continue to avoid nephrotoxic agents will continue to closely monitor Qualifiers: Qualified Code(s): N17.9 - Acute kidney failure, unspecified (2) Metabolic acidosis Current Visit: Yes Status: Acute Assessment and plan: likely secondary to acute renal failure Resolved (3) UTI (urinary tract infection) Current Visit: Yes Status: Acute Assessment and plan: urine cultures reported no growth will continue abx for 5 days noted to have worsening of leukocytosis likely secondary to the huang trauma overnight, will continue to monitor Qualifiers: Qualified Code(s): N39.0 - Urinary tract infection, site not specified (4) Hyperkalemia Current Visit: Yes Status: Acute Assessment and plan: Resolved (5) Atrial fibrillation with rapid ventricular response Current Visit: Yes Status: Acute Assessment and plan: Continue Cardizem gtt TSH wnl etiology unclear, likely secondary to underlying renal failure increased BB dose by cardiology CHADVASC score: 2, unable to anticoagulate given hematuria continue tele monitoring cardiology evaluation appreciated (6) Asthma Current Visit: Yes Status: Acute Assessment and plan: SOB improved since admission continue O2 supplementation and bronchodilator support as needed Qualifiers: Qualified Code(s): J45.909 - Unspecified asthma, uncomplicated (7) DVT prophylaxis Current Visit: Yes Status: Acute Assessment and plan: Heparin SQ (8) Obesity (BMI 30.0-34.9) Current Visit: Yes Status: Acute (9) Decreased urination Current Visit: Yes Status: Acute Assessment and plan: No prior history of BPH or bladder outlet obstruction (upon arrival was found to have 700ml of urine removed once huang cath was placed) urology on board and consultation appreciated - Subjective Interval history: Patient seen and examined at bedside. Resting comfortably in bed. Denies any pain or shortness of breath at this time Overnight, patient was noted to have worsening of mental status, became agitated ,pulled out his huang catheter resulting in profuse hematuria secondary to the trauma. Urology was consulted and a huang cath was placed with initiation of CBI and continuation of IV fluids Earlier this morning, he was noted to have pulmonary congestion, IV fluids were discontinued and pt received one dose of Lasix 20mg IV. Pt responded well to lasix support and is currently saturating well on nasal cannula. As per family, patient's baseline mental status waxes and wanes. At this time, he is oriented to self, however he did receive Ativan 1mg IV overnight. He continues to have Afib with RVR and remains on cardizem gtt. - Constitutional Vitals: Temp Pulse Resp BP Pulse Ox 98 F 101 16 132/80 95 10/25/17 07:59 10/25/17 07:59 10/25/17 07:59 10/25/17 07:59 10/25/17 07:59 General appearance: Present: A&O X 1, no acute distress - Head Head exam: Present: atraumatic, normocephalic - Eye Eye exam: Present: conjuntiva pink, sclera anicteric - Respiratory Respiratory exam: Absent: rales, respiratory distress, wheezes - Cardiovascular Cardiovascular exam: Present: irregular rhythm, +S1, +S2, tachycardia - GI/Abdominal GI/Abdominal exam: Present: normal bowel sounds, soft, no peritoneal signs. Absent: distended, tenderness - Extremities Exam Extremities exam: Present: warm, radial pulses palpable and symmetrical. Absent : calf tenderness, pedal edema - Neurological Exam Neurological exam: Present: alert - Psychiatric Psychiatric exam: Present: normal affect, normal mood Internal Medicine: Result - Labs CBC & Chem 7: 10/25/17 00:36 10/25/17 00:36 Labs: Short CBC 10/24/17 10/25/17 Range/Units 11:44 00:36 WBC 10.7 15.3 H (4.3-11.1) K/mcL Hgb 9.3 L 9.0 L (12.9-16.9) g/dL Hct 29.9 L 29.3 L (37.5-50.1) % Plt Count 299 370 (140-400) K/mcL Neutrophils # 12.6 H (1.6-8.9) K/mcL BMP 10/25/17 00:36 Sodium 140 Potassium 4.2 Chloride 104 Carbon Dioxide 28 BUN 45 H D Creatinine 3.27 H D Glucose 130 H Calcium 8.4 L - ABG Interpretation ABG results: PT/INR, D-dimer PT 16.4 Seconds (9.4-12.1) H 10/24/17 11:44 - Impressions Impressions Retroperitoneum Ultrasound 10/24/17 09:00 IMPRESSION: Mild bilateral hydronephrosis. Urinary bladder is incompletely decompressed, despite presence of Huang catheter. D/ / 10/24/2017 09:52:46 Suleiman Ramírez MD / bcarter Interpreting Provider: Suleiman Ramírez MD Chest X-Ray 10/25/17 05:42 IMPRESSION: Cardiomegaly with mild pulmonary vascular congestion. No significant change. D/ / Lizeth Marcos MD / Lizeth Marcos MD Interpreting Provider: Lizeth Marcos MD Consult Discharge Plan - Plan Referrals: Joshua Narvaez, SUPERVISOR TAN ROOM [Primary Care Provider] -
[2017-10-25] MEDS: Diltiazem CD (24hr) 120 MG CAPSULE PO SCH (10:50)
--- NOTE | 2017-10-25 13:20 | Nephrology Progress Note ---
Date of Encounter: 10/25/17 Time of Encounter: 12:45 - Assessment and Plan (1) RUDDY (acute kidney injury) Current Visit: Yes Status: Acute SCr improving at 3.27, GFR 18 from12.07, GFR 4 which is great No acute indication for BAKERY DECORATOR at this time UOp not well documented with CBI in place Continue to avoid nephrotoxins if possible Po fluids for now (2) Metabolic acidosis Current Visit: Yes Status: Acute Resolved, off bicarb gtt (3) Hyperkalemia Current Visit: Yes Status: Resolved Resolved, renal diet advised Subjective Principal diagnosis: Afib RVR Interval history: Interim events noted, pulled huang out overnight now replaced. Pt seen and examined with a sitter, calm. CBI noted with orange color urine noted in huang bag. Cardizem gtt still in place. Off bicarb gtt. Lasix given overnight as well for resp. distress. Objective - Vital Signs Vital signs: Vital Signs Temp Pulse Resp BP Pulse Ox 10/25/17 11:02 98.4 F 95 18 113/70 99 10/25/17 10:59 18 97 10/25/17 09:57 113/71 10/25/17 07:59 98 F 101 16 132/80 95 10/25/17 06:47 96 16 114/70 95 10/25/17 04:22 18 96 10/25/17 03:27 98.5 F 98 16 136/76 96 10/25/17 02:11 146/79 10/25/17 00:13 105 15 119/75 97 10/24/17 20:36 97 18 136/70 93 10/24/17 19:01 98.4 F 112 19 121/86 97 10/24/17 16:15 16 148/96 96 Intake and Output 10/24/17 10/25/17 10/25/17 23:59 07:59 15:59 Intake Total 1320 / 1320 708 / 708 150 / 150 Output Total 1200 / 1200 5 / 5 100 / 100 Balance 120 / 120 -1367 / -1367 50 / 50 Intake: IV Fluids 1200 / 1200 708 / 708 Sodium Bicarbonate 150 MEQ In 1150 / 1150 708 / 708 Dextrose 5% 1,000 ML @ 125 mls/ hr IVC .Q9H12M [facility] Rx#: [id number] Cardizem 100 MG In Dextrose 5% 50 / 50 (ADD-[place]) 50 ML @ 5 MG/HR 2 .5 mls/hr IVC .Q20H [facility] Rx#: [id number] Oral 120 / 120 150 / 150 Output: Urine 1350 / 1350 100 / 100 Catheter 1200 / 1200 725 / 725 Urethral (Huang) 500 / 500 Other: Intake, CBI Fluid 50 1,100 Meal Dinner Breakfast Percent of Meal Consumed 100% 100% Output, CBI Fluid 200 1,200 - General Appearance General appearance: Present: chronically ill (NAD) EENT: Present: ATNC, mucous membranes dry Neck: Present: no JVD, supple Respiratory: Present: clear (ant bilat) Cardiology: Present: no edema, normal S1, normal S2 Gastrointestinal: Present: no tenderness, no guarding Integumentary: Present: warm and dry Neurologic: Present: confused Musculoskeletal: Present: no deformities Psychiatric: Present: cooperative - Lab 10/25/17 00:36 10/25/17 00:36 Most recent lab results Calcium 8.4 mg/dL (8.6-10.8) L 10/25/17 00:36 Phosphorus 3.4 mg/dL (2.3-4.7) 10/25/17 00:36 Magnesium 2.4 mg/dL (1.6-2.6) 10/25/17 00:36 Urine Sodium 40.0 mEq/L 10/24/17 00:10 Consult Discharge Plan - Plan Referrals: Joshua Narvaez, HORSE IDENTIFIER [Primary Care Provider] -
[2017-10-26] MEDS: Ipratropium/Albuterol Neb 3 ML IH SCH ×4 (04:01→22:45)
[2017-10-26 04:15] LABS: Basophils % 0.3 %; Eosinophils # 0.4 K/mcL (0.0-0.6); Eosinophils % 2.8 %; Hematocrit 28.2 % (37.5-50.1); Hemoglobin 8.4 g/dL (12.9-16.9); Immature Granulocytes % 4.7 % (0-4); Lymphocytes # 1.9 K/mcL (0.6-4.6); Lymphocytes % 13.9 %; Mean Corpuscular HGB Conc 29.8 g/dL (31.6-35.5); Mean Corpuscular Hemoglobin 22.5 pg (28.0-33.3); Mean Corpuscular Volume 75.6 fL (83.0-100.0); Mean Platelet Volume 9.7 fL (9.4-12.4); Monocytes # 1.1 K/mcL (0.0-1.3); Neutrophils # 9.6 K/mcL (1.6-8.9); Nucleated Red Blood Cells 0.1 /100 WBC (0); Platelet Count 338 K/mcL (140-400); Red Blood Count 3.73 M/mcL (4.19-5.50); Red Cell Distribution Width 16.6 % (11.5-14.5); Segmented Neutrophils % 70.3 %
[2017-10-26 04:21] LABS: Calcium 7.9 mg/dL (8.6-10.8); Magnesium 1.5 mg/dL (1.6-2.6); Phosphorous 2.5 mg/dL (2.3-4.7); Potassium 3.9 mEq/L (3.5-4.5)
[2017-10-26] MEDS ORDERED: Magnesium Sulfate 1 GM in D5% in Water 100 ML IVPB ONE (07:23)
--- NOTE | 2017-10-26 07:45 | Urology Progress Note ---
Date of Encounter: 10/26/17 Time of Encounter: 07:43 - Assessment and Plan (1) Dislodged Reyes catheter Current Visit: Yes Status: Acute Assessment and plan: stop CBI. place cath plug in 3rd port. cath needs to stay in place one week before removal Qualifiers: Encounter type: initial encounter Qualified Code(s): T83.021A - Displacement of indwelling urethral catheter, initial encounter Progress Note Narrative: urine is clear. pt awake and talking. states no penile pain. Objective Initial Vital Signs Temp Pulse Resp BP Pulse Ox 98.7 F 131 22 151/88 98 10/23/17 15:47 10/23/17 15:47 10/23/17 15:47 10/23/17 15:47 10/23/17 15:47 - General physical appearance Present: no distress - Additional Exam urine clear. - Labs 10/26/17 03:39 10/26/17 03:39 Diabetes panel 10/26/17 Range/Units 03:39 Sodium 138 (136-145) mEq/L Potassium 3.9 (3.5-4.5) mEq/L Chloride 104 (98-109) mEq/L Carbon Dioxide 25 (19-29) mEq/L BUN 27 H D (8-26) mg/dL Creatinine 1.53 H D (0.72-1.25) mg/dL Glucose 103 H (70-99) mg/dL Calcium 7.9 L (8.6-10.8) mg/dL Calcium panel 10/26/17 Range/Units 03:39 Calcium 7.9 L (8.6-10.8) mg/dL Phosphorus 2.5 (2.3-4.7) mg/dL Pituitary panel 10/26/17 Range/Units 03:39 Sodium 138 (136-145) mEq/L Potassium 3.9 (3.5-4.5) mEq/L Chloride 104 (98-109) mEq/L Carbon Dioxide 25 (19-29) mEq/L BUN 27 H D (8-26) mg/dL Creatinine 1.53 H D (0.72-1.25) mg/dL Glucose 103 H (70-99) mg/dL Calcium 7.9 L (8.6-10.8) mg/dL Adrenal panel 10/26/17 Range/Units 03:39 Sodium 138 (136-145) mEq/L Potassium 3.9 (3.5-4.5) mEq/L Chloride 104 (98-109) mEq/L Carbon Dioxide 25 (19-29) mEq/L BUN 27 H D (8-26) mg/dL Creatinine 1.53 H D (0.72-1.25) mg/dL Glucose 103 H (70-99) mg/dL Calcium 7.9 L (8.6-10.8) mg/dL Consult Discharge Plan - Plan Referrals: Joshua Narvaez, FREIGHT WEIGHER [Primary Care Provider] -
--- NOTE | 2017-10-26 08:59 | Internal Med Progress Note ---
Date of Encounter: 10/26/17 Time of Encounter: 08:25 - Assessment and plan (1) Acute renal failure Current Visit: Yes Status: Acute Assessment and plan: Of unclear etiology, however likely secondary to bladder outlet obstruction Renal function improved from previous day Renal US reported Mild bilateral hydronephrosis Nephrology on board and consultation appreciated Hyperkalemia resolved continue to avoid nephrotoxic agents will continue to closely monitor Qualifiers: Acute renal failure type: unspecified Qualified Code(s): N17.9 - Acute kidney failure, unspecified (2) Metabolic acidosis Current Visit: Yes Status: Resolved Assessment and plan: likely secondary to acute renal failure Resolved (3) UTI (urinary tract infection) Current Visit: Yes Status: Acute Assessment and plan: urine cultures reported no growth will continue abx for 5 days (Day3/5) Qualifiers: Urinary tract infection type: site unspecified Hematuria presence: without hematuria Qualified Code(s): N39.0 - Urinary tract infection, site not specified (4) Hyperkalemia Current Visit: Yes Status: Resolved (5) Atrial fibrillation with rapid ventricular response Current Visit: Yes Status: Acute Assessment and plan: Continue Cardizem gtt TSH wnl etiology unclear, likely secondary to underlying renal failure increased BB dose to 50mg PO BID CHADVASC score: 2, unable to anticoagulate due to hematuria. Hematuria resolved at this time, will defer to cardiology for terminal gauger AC. continue tele monitoring cardiology evaluation appreciated (6) Asthma Current Visit: Yes Status: Acute Assessment and plan: SOB improved since admission continue O2 supplementation and bronchodilator support as needed Qualifiers: Asthma severity: unspecified severity Asthma persistence: unspecified Asthma complication type: unspecified Qualified Code(s): J45.909 - Unspecified asthma, uncomplicated (7) DVT prophylaxis Current Visit: Yes Status: Acute Assessment and plan: SCD (8) Obesity (BMI 30.0-34.9) Current Visit: Yes Status: Acute (9) Decreased urination Current Visit: Yes Status: Acute Assessment and plan: No prior history of BPH or bladder outlet obstruction (upon arrival was found to have 700ml of urine removed once huang cath was placed) urology on board and consultation appreciated pt likely will be discharge with huang cath (10) Hypomagnesemia Current Visit: Yes Status: Acute Assessment and plan: Mg supplemented continue to monitor electrolytes and replace as needed - Subjective Interval history: Patient seen and examined at bedside. Denies any pain at this time. Remains oriented to self, consistent with patient's baseline mental status as per family Hematuria resolved RUDDY improving Afib with RVR persists requiring cardizem gtt No overnight issues reported. - Constitutional Vitals: Temp Pulse Resp BP Pulse Ox 98.2 F 107 15 150/89 98 10/26/17 06:57 10/26/17 06:57 10/26/17 06:57 10/26/17 06:57 10/26/17 06:57 General appearance: Present: A&O X 1, no acute distress - Head Head exam: Present: atraumatic, normocephalic - Eye Eye exam: Present: conjuntiva pink, sclera anicteric - Respiratory Respiratory exam: Absent: respiratory distress, wheezes - Cardiovascular Cardiovascular exam: Present: irregular rhythm, +S1, +S2, tachycardia - GI/Abdominal GI/Abdominal exam: Present: normal bowel sounds, soft, no peritoneal signs. Absent: distended, tenderness - Extremities Exam Extremities exam: Present: warm, radial pulses palpable and symmetrical. Absent : calf tenderness, cyanotic, pedal edema - Neurological Exam Neurological exam: Present: alert Internal Medicine: Result - Labs CBC & Chem 7: 10/26/17 03:39 10/26/17 03:39 Labs: Short CBC 10/26/17 Range/Units 03:39 WBC 13.7 H (4.3-11.1) K/mcL Hgb 8.4 L (12.9-16.9) g/dL Hct 28.2 L (37.5-50.1) % Plt Count 338 (140-400) K/mcL Neutrophils # 9.6 H (1.6-8.9) K/mcL BMP 10/26/17 03:39 Sodium 138 Potassium 3.9 Chloride 104 Carbon Dioxide 25 BUN 27 H D Creatinine 1.53 H D Glucose 103 H Calcium 7.9 L - ABG Interpretation ABG results: PT/INR, D-dimer PT 16.4 Seconds (9.4-12.1) H 10/24/17 11:44 - Impressions Impressions Retroperitoneum Ultrasound 10/24/17 09:00 IMPRESSION: Mild bilateral hydronephrosis. Urinary bladder is incompletely decompressed, despite presence of Huang catheter. D/ / 10/24/2017 09:52:46 Suleiman Ramírez MD / bcarter Interpreting Provider: Suleiman Ramírez MD Consult Discharge Plan - Plan Referrals: Joshua Narvaez, CORPORATE DEVELOPMENT INTERN [Primary Care Provider] -
[2017-10-26] MEDS: Diltiazem CD (24hr) 120 MG CAPSULE PO SCH (09:36)
--- NOTE | 2017-10-26 10:03 | Nephrology Progress Note ---
Date of Encounter: 10/26/17 Time of Encounter: 10:30 - Assessment and Plan (1) RUDDY (acute kidney injury) Current Visit: Yes Status: Acute SCr improving at 3.27, GFR 18 from12.07, GFR 4 which is great No acute indication for HOTEL FRONT DESK AGENT at this time UOp not well documented with CBI in place Continue to avoid nephrotoxins if possible Po fluids for now (2) Metabolic acidosis Current Visit: Yes Status: Resolved Resolved, off bicarb gtt (3) Hyperkalemia Current Visit: Yes Status: Resolved Resolved, renal diet advised Subjective Principal diagnosis: Afib RVR Interval history: Interim events noted, pulled huang out overnight now replaced. Pt seen and examined with a sitter, calm. CBI noted with orange color urine noted in huang bag. Cardizem gtt still in place. Off bicarb gtt. Lasix given overnight as well for resp. distress. Objective - Vital Signs Vital signs: Vital Signs Temp Pulse Resp BP Pulse Ox 10/26/17 06:57 98.2 F 107 15 150/89 98 10/26/17 04:02 18 97 10/26/17 03:59 97.9 F 114 18 164/82 97 10/25/17 22:50 18 96 10/25/17 19:52 98.3 F 96 17 146/72 96 10/25/17 15:58 88 146/77 95 10/25/17 13:39 122/74 10/25/17 11:02 98.4 F 95 18 113/70 99 10/25/17 10:59 18 97 Intake and Output 10/25/17 10/26/17 10/26/17 23:59 07:59 15:59 Intake Total 1989 0 / 0 270 / 270 Output Total 850 / 850 800 / 800 900 / 900 Balance 1140 / 1140 -800 / -800 -630 / -630 Intake: IV Fluids 150 / 150 30 / 30 Cardizem 100 MG In Dextrose 5% 50 / 50 30 / 30 (ADD-[place]) 50 ML @ 5 MG/HR 2 .5 mls/hr IVC .Q20H [facility] Rx#: [id number] Cipro Premix 200 MG/100 ML 200 100 / 100 mg In 100 ml @ 100 mls/hr IVPB Q12H [facility] Rx#:[id number] Oral 1840 / 1840 0 / 0 240 / 240 Output: Urine 850 / 850 800 / 800 Catheter 900 / 900 Other: Intake, CBI Fluid 600 800 Meal Dinner Breakfast Percent of Meal Consumed 90% 100% Output, CBI Fluid 550 750 Weight 90.8 kg Patient Weight 10/26/17 23:59 Weight 90.8 kg - Lab 10/26/17 03:39 10/26/17 03:39 Most recent lab results Calcium 7.9 mg/dL (8.6-10.8) L 10/26/17 03:39 Phosphorus 2.5 mg/dL (2.3-4.7) 10/26/17 03:39 Magnesium 1.5 mg/dL (1.6-2.6) L 10/26/17 03:39 Urine Sodium 40.0 mEq/L 10/24/17 00:10 Consult Discharge Plan - Plan Referrals: Joshua Narvaez, LITIGATION CLAIM REPRESENTATIVE [Primary Care Provider] -
--- NOTE | 2017-10-26 10:24 | Cardiology Progress Note ---
Date of Encounter: 10/26/17 Time of Encounter: 09:30 Assessment and Plan (1) Atrial fibrillation with rapid ventricular response Current Visit: Yes Status: Acute Per cardiology: -Afib RVR, likely secondary to renal status/hyperkalemia vs. infection -Average HR previous 12 hours noted to be 113, atrial fibrillation. -Patient remains on cardizem CD 120mg, Cardizem 10mg/hour drip, Metoprolol increased to 50mg BID today per primary service. -Echo shows LVEF 55% with severely dilated LA/RA -[id number] 4, patient would benefit from anticoagulation, however he is poor candidate due to urological bleeding -Continue to titrate cardizem drip. -Will continue to monitor HR. (2) RUDDY (acute kidney injury) Current Visit: Yes Status: Acute Per cardiology: -Creatinine today 1.53. -Management per nephrology Discussion w patient/family: The assessment and plan as outlined above was discussed with the patient who expressed understanding and agreement. All questions were answered. Thank you for involving us in the care of your patient. Please call with any questions. Discussed and reviewed with . Subjective Principal diagnosis: Afib RVR Interval history: Patient states he feels ok today. Denies complaints. Objective Vital Signs, Last 4 Hours Temp Pulse Resp BP Pulse Ox 10/26/17 06:57 98.2 F 107 15 150/89 98 General: Conversant, No Apparent Distress HEENT: Atraumatic, Normocephaly, Mucus Membranes Moist Neck: No JVD, Normal carotid pulses Cardiac: Normal S1 and S2, No Murmur, Other (Irregularly irregular) Lungs: Normal Breath Sounds, No Wheeze, Rales, Rhonchi Neuro: Alert and responsive, No focal deficits noted Abdomen: Soft, Non-Tender Skin: No rashes noted on visualized skin Musculoskeletal: No Chest Wall Tenderness Extremities: No Clubbing, No Cyanosis, No Edema, Normal Pulses Results 10/26/17 03:39 10/26/17 03:39 Lab Results Impressions Retroperitoneum Ultrasound 10/24/17 09:00 IMPRESSION: Mild bilateral hydronephrosis. Urinary bladder is incompletely decompressed, despite presence of Reyes catheter. D/ / 10/24/2017 09:52:46 Suleiman Ramírez MD / bcarter Interpreting Provider: Suleiman Ramírez MD Active Medications Albuterol Sulfate (Albuterol Inhaler) 2 puff IH Q2HR PRN PRN Reason: Dyspnea Stop: 04/25/18 00:07 Albuterol/Ipratropium (Duoneb) 3 ml IH QIDR JOSESITO Stop: 04/25/18 00:16 Last Admin: 10/26/17 04:01 Dose: 3 ml Diltiazem HCl (Cardizem Cd) 120 mg PO DAILY JOSESITO Stop: 04/26/18 09:46 Last Admin: 10/26/17 09:36 Dose: 120 mg Diltiazem HCl 100 mg/ Dextrose 50 mls @ 2.5 mls/hr IVC .Q20H JOSESITO; 5 MG/HR PRN Reason: Protocol Stop: 04/24/18 16:16 Last Titration: 10/26/17 09:38 Dose: 10 mg/hr, 5 mls/hr Ciprofloxacin Lactate (Cipro Premix 200 Mg/100 Ml) 200 mg in 100 mls @ 100 mls/ hr IVPB Q12H JOSESITO Stop: 10/28/17 18:01 Last Admin: 10/26/17 05:02 Dose: 100 mls/hr Lorazepam (Ativan) 1 mg IVP Q4HR PRN PRN Reason: Agitation Stop: 04/26/18 04:01 Menthol (Cough Drops) 9.1 mg PO Q2H PRN PRN Reason: Cough Stop: 04/25/18 04:53 Metoprolol Tartrate (Lopressor) 50 mg PO BID JOSESITO Stop: 04/27/18 09:01 Last Admin: 10/26/17 09:37 Dose: 50 mg Naloxone HCl (Narcan) 0.4 mg IVP Q2MIN PRN PRN Reason: Opioid Reversal Stop: 04/24/18 23:02 Laboratory Tests 10/25/17 10/26/17 10/26/17 00:36 03:39 03:39 WBC 13.7 H Hgb 8.4 L Creatinine 3.27 H D 1.53 H D Magnesium 1.5 L - Imaging and Cardiology Chest Xray: report reviewed Echo: report reviewed - EKG Interpretation EKG results cardiology: other (Telemtry reviewed with average HR previous 12 hours noted to be 113, atrial fibrillation. 1 6 beat run of non-sustained ventricular tachycardia.) Consult Discharge Plan - Plan Referrals: Joshua Narvaez, AUTO BUMPER MECHANIC [Primary Care Provider] -
[2017-10-26] MEDS ORDERED: Sennosides/Docusate Sodium TABLET PO PRN (16:18)
[2017-10-26] MEDS: Sodium Bicarbonate 150 MEQ in D5% in Water 1,000 ML IVC SCH (22:29)
[2017-10-27] MEDS: dilTIAZem HCl 100 MG in D5% in Water 50 ML IVC SCH (01:26)
[2017-10-27] MEDS: Ipratropium/Albuterol Neb 3 ML IH SCH ×4 (04:13→23:22)
[2017-10-27 05:08] LABS: Eosinophils # 0.6 K/mcL (0.0-0.6); Hematocrit 28.8 % (37.5-50.1); Hemoglobin 8.8 g/dL (12.9-16.9); Mean Corpuscular HGB Conc 30.6 g/dL (31.6-35.5); Mean Corpuscular Hemoglobin 23.1 pg (28.0-33.3); Mean Corpuscular Volume 75.6 fL (83.0-100.0); Mean Platelet Volume 9.6 fL (9.4-12.4); Monocytes # 1.2 K/mcL (0.0-1.3); Platelet Count 312 K/mcL (140-400); Red Blood Count 3.81 M/mcL (4.19-5.50); Red Cell Distribution Width 16.5 % (11.5-14.5)
[2017-10-27 05:18] LABS: BUN/Creatinine Ratio 18 (6-26); Blood Urea Nitrogen 21 mg/dL (8-26); Calcium 8.3 mg/dL (8.6-10.8); Carbon Dioxide 24 mEq/L (19-29); Chloride 106 mEq/L (98-109); Glucose 110 mg/dL (70-99); Osmolality,Calculated 288 (280-300); Phosphorous 2.4 mg/dL (2.3-4.7); Potassium 3.7 mEq/L (3.5-4.5); Sodium 137 mEq/L (136-145); eGFR For African Americans > 60 (> 60); eGFR For Non-African Americans 60 (> 60)
[2017-10-27 05:31] LABS: Magnesium 1.5 mg/dL (1.6-2.6)
[2017-10-27 05:38] LABS: Lymphocytes # 2.4 K/mcL (0.6-4.6); Neutrophils # 10.8 K/mcL (1.6-8.9); Platelet Estimate Normal (Normal)
[2017-10-27 06:04] LABS: Kappa Qnt Free Light Chains 5.01 mg/dL (0.33-1.94); Lambda Qnt Free Light Chains 2.19 mg/dL (0.57-2.63)
[2017-10-27] MEDS ORDERED: Magnesium Sulfate 1 GM in D5% in Water 100 ML IVPB ONE (07:19)
[2017-10-27] MEDS: Diltiazem CD (24hr) 120 MG CAPSULE PO SCH (09:15)
[2017-10-27] MEDS ORDERED: Diltiazem CD (24hr) 120 MG CAPSULE PO ONE (10:30)
--- NOTE | 2017-10-27 12:49 | Internal Med Progress Note ---
Date of Encounter: 10/27/17 Time of Encounter: 11:55 - Assessment and plan (1) Acute renal failure Current Visit: Yes Status: Acute Assessment and plan: Of unclear etiology, however likely secondary to bladder outlet obstruction RUDDY resolved Renal function back to baseline Renal US reported Mild bilateral hydronephrosis Nephrology on board and consultation appreciated Hyperkalemia resolved continue to avoid nephrotoxic agents will continue to closely monitor Qualifiers: Acute renal failure type: unspecified Qualified Code(s): N17.9 - Acute kidney failure, unspecified (2) Metabolic acidosis Current Visit: Yes Status: Resolved Assessment and plan: likely secondary to acute renal failure Resolved (3) UTI (urinary tract infection) Current Visit: Yes Status: Acute Assessment and plan: urine cultures reported no growth will continue abx for 5 days (Day4/5) Qualifiers: Urinary tract infection type: site unspecified Hematuria presence: without hematuria Qualified Code(s): N39.0 - Urinary tract infection, site not specified (4) Hyperkalemia Current Visit: Yes Status: Resolved (5) Atrial fibrillation with rapid ventricular response Current Visit: Yes Status: Acute Assessment and plan: Off cardizem gtt increased Cardizem PO to 240mg PO qd TSH wnl etiology unclear, likely secondary to underlying renal failure continue BB dose to 50mg PO BID CHADVASC score: 2, unable to anticoagulate due to hematuria. Hematuria resolved at this time, will defer to cardiology for terminal supervisor AC. continue tele monitoring cardiology evaluation appreciated (6) Asthma Current Visit: Yes Status: Acute Assessment and plan: SOB improved since admission continue O2 supplementation and bronchodilator support as needed Qualifiers: Asthma severity: unspecified severity Asthma persistence: unspecified Asthma complication type: unspecified Qualified Code(s): J45.909 - Unspecified asthma, uncomplicated (7) DVT prophylaxis Current Visit: Yes Status: Acute Assessment and plan: SCD (8) Obesity (BMI 30.0-34.9) Current Visit: Yes Status: Acute (9) Decreased urination Current Visit: Yes Status: Acute Assessment and plan: No prior history of BPH or bladder outlet obstruction (upon arrival was found to have 700ml of urine removed once huang cath was placed) urology on board and consultation appreciated pt to be discharge with huang cath (10) Hypomagnesemia Current Visit: Yes Status: Acute Assessment and plan: Mg supplemented continue to monitor electrolytes and replace as needed (11) Leukocytosis, unspecified Current Visit: Yes Status: Acute Assessment and plan: Pt reported to have bandemia, however no clinical signs of infection afebrile respiratory status at baseline Urine culture reported No growth will obtain CXR to r/o any infectious etiology will continue to closely monitor will obtain blood cultures Qualifiers: Leukocytosis type: bandemia Qualified Code(s): D72.825 - Bandemia - Subjective Interval history: Patient seen and examined at bedside. Denies any pain at this time. Remains oriented to self, consistent with patient's baseline mental status as per family Hematuria resolved RUDDY resolved Afib with RVR: off cardizem gtt, however noted to have rate in 110s,increased cardizem dose to 240mg PO qd with Metoprolol 50mg PO BID, rate better controlled with this adjustment No overnight issues reported. Noted to have bleeding at the penile meatus awaiting urology follow up in regards to continuation of terminal supervisor anticoagulation PT/OT evaluation requested - Constitutional Vitals: Temp Pulse Resp BP Pulse Ox 98.4 F 105 16 144/80 96 10/27/17 06:23 10/27/17 10:41 10/27/17 09:55 10/27/17 10:41 10/27/17 09:55 General appearance: Present: A&O X 1, no acute distress - Head Head exam: Present: atraumatic, normocephalic - Eye Eye exam: Present: conjuntiva pink, sclera anicteric - Respiratory Respiratory exam: Absent: rales, respiratory distress, wheezes - Cardiovascular Cardiovascular exam: Present: irregular rhythm, +S1, +S2 - GI/Abdominal GI/Abdominal exam: Present: normal bowel sounds, soft, no peritoneal signs. Absent: distended, tenderness - Extremities Exam Extremities exam: Present: warm, radial pulses palpable and symmetrical. Absent : calf tenderness, pedal edema - Neurological Exam Neurological exam: Present: alert - Psychiatric Psychiatric exam: Present: normal affect, normal mood Internal Medicine: Result - Labs CBC & Chem 7: 10/27/17 04:36 10/27/17 04:36 Labs: Short CBC 10/27/17 Range/Units 04:36 WBC 15.0 H (4.3-11.1) K/mcL Hgb 8.8 L (12.9-16.9) g/dL Hct 28.8 L (37.5-50.1) % Plt Count 312 (140-400) K/mcL Neutrophils # 10.8 H (1.6-8.9) K/mcL BMP 10/27/17 04:36 Sodium 137 Potassium 3.7 Chloride 106 Carbon Dioxide 24 BUN 21 Creatinine 1.17 Glucose 110 H Calcium 8.3 L - ABG Interpretation ABG results: PT/INR, D-dimer PT 16.4 Seconds (9.4-12.1) H 10/24/17 11:44 Consult Discharge Plan - Plan Referrals: Joshua Narvaez, GRAIN BUYER [Primary Care Provider] -
--- NOTE | 2017-10-27 13:03 | Nephrology Progress Note ---
Date of Encounter: 10/27/17 Time of Encounter: 12:15 - Assessment and Plan (1) RUDDY (acute kidney injury) Current Visit: Yes Status: Acute SCr improved greatly at 1.17, GFR 60 UOp good Continue to avoid nephrotoxins if possible Po fluids for now Will sign off, please reconsult prn (2) Metabolic acidosis Current Visit: Yes Status: Resolved Resolved (3) Hyperkalemia Current Visit: Yes Status: Resolved Resolved Subjective Principal diagnosis: Afib RVR Interval history: Pt seen and examined calm in bed with no new complaints. Objective - Vital Signs Vital signs: Vital Signs Temp Pulse Resp BP Pulse Ox 10/27/17 10:41 105 144/80 10/27/17 09:55 16 148/85 96 10/27/17 06:23 98.4 F 106 15 148/85 97 10/27/17 03:45 98.4 F 107 17 156/83 96 10/26/17 23:56 98.1 F 88 15 145/90 10/26/17 22:45 22 95 10/26/17 20:10 98.6 F 102 15 151/81 96 10/26/17 16:02 16 95 10/26/17 15:00 102 19 171/89 95 Intake and Output 10/26/17 10/27/17 10/27/17 23:59 07:59 15:59 Intake Total 340 / 340 Output Total 600 / 600 850 / 850 Balance -260 / -260 -850 / -850 Intake: IV Fluids 100 / 100 Cipro Premix 200 MG/100 ML 200 100 / 100 mg In 100 ml @ 100 mls/hr IVPB Q12H [facility] Rx#:[id number] Oral 240 / 240 Output: Catheter 600 / 600 850 / 850 Other: Meal Dinner Percent of Meal Consumed 100% - Lab 10/27/17 04:36 10/27/17 04:36 Most recent lab results Calcium 8.3 mg/dL (8.6-10.8) L 10/27/17 04:36 Phosphorus 2.4 mg/dL (2.3-4.7) 10/27/17 04:36 Magnesium 1.5 mg/dL (1.6-2.6) L 10/27/17 04:36 Urine Sodium 40.0 mEq/L 10/24/17 00:10 Consult Discharge Plan - Plan Referrals: Joshua Narvaez, ADIA [Primary Care Provider] -
--- NOTE | 2017-10-27 14:18 | Cardiology Progress Note ---
Date of Encounter: 10/27/17 Time of Encounter: 10:30 Assessment and Plan (1) Atrial fibrillation with rapid ventricular response Current Visit: Yes Status: Acute Per cardiology: -Afib RVR, likely secondary to renal status/hyperkalemia vs. infection -Average HR previous 12 hours noted to be 113, atrial fibrillation. -Patient had been on cardizem drip, now off. Was on cardizem CD 120, increased to 240mg per primary service. On beta zuleyka. -Echo shows LVEF 55% with severely dilated LA/RA -[id number] 4, patient would benefit from anticoagulation, however he is poor candidate due to urological bleeding -Recommend anticoagulation when ok with urology. -Will continue to monitor. (2) RUDDY (acute kidney injury) Current Visit: Yes Status: Acute Per cardiology: -Creatinine today 1.17. -Management per primary and nephrology services. Discussion w patient/family: The assessment and plan as outlined above was discussed with the patient who expressed understanding and agreement. All questions were answered. Thank you for involving us in the care of your patient. Please call with any questions. Discussed and reviewed with . Subjective Principal diagnosis: Afib RVR Interval history: Patient states he feels ok today. Denies complaints. Denies chest pain, palpitations. Objective Vital Signs, Last 4 Hours Pulse BP 10/27/17 10:41 105 144/80 General: Conversant, No Apparent Distress HEENT: Atraumatic, Normocephaly, Mucus Membranes Moist Neck: No JVD, Normal carotid pulses Cardiac: Normal S1 and S2, No Murmur, Other (Irregularly irregular) Lungs: Normal Breath Sounds, No Wheeze, Rales, Rhonchi Neuro: Alert and responsive, No focal deficits noted Abdomen: Soft, Non-Tender Skin: No rashes noted on visualized skin Musculoskeletal: No Chest Wall Tenderness Extremities: No Clubbing, No Cyanosis, Normal Pulses, Other (Moderate bilateral pedal edema, non-pitting. ) Results 10/27/17 04:36 10/27/17 04:36 Lab Results Impressions Chest X-Ray 10/27/17 12:51 IMPRESSION: Findings most compatible with mild congestive heart failure slightly improved over the past few days. No definite pneumonia. D/ / Ab Goodwin MD / Ab Goodwin MD Interpreting Provider: Ab Goodwin MD Active Medications Albuterol Sulfate (Albuterol Inhaler) 2 puff IH Q2HR PRN PRN Reason: Dyspnea Stop: 04/25/18 00:07 Albuterol/Ipratropium (Duoneb) 3 ml IH QIDR JOSESITO Stop: 04/25/18 00:16 Last Admin: 10/27/17 09:55 Dose: 3 ml Diltiazem HCl (Cardizem Cd) 240 mg PO DAILY JOSESITO Stop: 04/29/18 09:01 Ciprofloxacin Lactate (Cipro Premix 200 Mg/100 Ml) 200 mg in 100 mls @ 100 mls/ hr IVPB Q12H JOSESITO Stop: 10/28/17 18:01 Last Admin: 10/27/17 05:33 Dose: 100 mls/hr Lorazepam (Ativan) 1 mg IVP Q4HR PRN PRN Reason: Agitation Stop: 04/26/18 04:01 Menthol (Cough Drops) 9.1 mg PO Q2H PRN PRN Reason: Cough Stop: 04/25/18 04:53 Metoprolol Tartrate (Lopressor) 50 mg PO BID JOSESITO Stop: 04/27/18 09:01 Last Admin: 10/27/17 09:15 Dose: 50 mg Naloxone HCl (Narcan) 0.4 mg IVP Q2MIN PRN PRN Reason: Opioid Reversal Stop: 04/24/18 23:02 Polyethylene Glycol (Miralax) 17 gm PO DAILY PRN PRN Reason: Constipation Stop: 04/27/18 16:19 Senna/Docusate Sodium (Senna Plus) 2 each PO BID PRN; Protocol PRN Reason: Constipation Stop: 04/27/18 16:19 Laboratory Tests 10/27/17 10/27/17 04:36 04:36 WBC 15.0 H Hgb 8.8 L Creatinine 1.17 - Imaging and Cardiology Chest Xray: report reviewed Echo: report reviewed - EKG Interpretation EKG results cardiology: other (Telemetry reviewed with average HR previous 12 hours noted to be 113, atrial fibrillation. PVCs noted. 2 4 beat runs of non- sustained ventricular tachycardia noted.) Consult Discharge Plan - Plan Referrals: Joshua Narvaez, AIRPLANE FLIGHT ATTENDANT SUPERVISOR [Primary Care Provider] -
[2017-10-27] MEDS ORDERED: *HR* Heparin 5,000 UNIT/ML VIAL IVP PRN ×2 (15:32)
[2017-10-27 16:06] LABS: Hematocrit 30.4 % (37.5-50.1); Hemoglobin 9.2 g/dL (12.9-16.9); Mean Corpuscular HGB Conc 30.3 g/dL (31.6-35.5); Platelet Count 354 K/mcL (140-400); Red Cell Distribution Width 16.5 % (11.5-14.5)
[2017-10-27 16:12] LABS: INR 1.5; Prothrombin Time 16.3 Seconds (9.4-12.1)
[2017-10-27] MEDS: Heparin 25,000 UNIT/500 ML D5W 25,000 UNIT/500 ML BAG IVC SCH (18:12)
[2017-10-27] MEDS: Menthol 9.1 MG LOZENGE PO PRN (19:18)
[2017-10-28 00:27] LABS: Hematocrit 28.3 % (37.5-50.1); Hemoglobin 8.6 g/dL (12.9-16.9); Mean Corpuscular HGB Conc 30.4 g/dL (31.6-35.5); Mean Corpuscular Volume 75.7 fL (83.0-100.0); Mean Platelet Volume 9.3 fL (9.4-12.4); Platelet Count 307 K/mcL (140-400); Red Blood Count 3.74 M/mcL (4.19-5.50); Red Cell Distribution Width 16.6 % (11.5-14.5)
[2017-10-28 00:28] LABS: Eosinophils # 0.6 K/mcL (0.0-0.6)
[2017-10-28 00:41] LABS: BUN/Creatinine Ratio 16 (6-26); Blood Urea Nitrogen 21 mg/dL (8-26); Calcium 8.3 mg/dL (8.6-10.8); Carbon Dioxide 23 mEq/L (19-29); Chloride 105 mEq/L (98-109); Glucose 126 mg/dL (70-99); Magnesium 1.7 mg/dL (1.6-2.6); Osmolality,Calculated 287 (280-300); Phosphorous 2.5 mg/dL (2.3-4.7); Potassium 3.9 mEq/L (3.5-4.5); Sodium 136 mEq/L (136-145); eGFR For African Americans > 60 (> 60); eGFR For Non-African Americans 53 (> 60)
[2017-10-28 00:53] LABS: Hypersegmented Neutrophils Present (Not Present); Lymphocytes # 1.4 K/mcL (0.6-4.6); Monocytes # 0.3 K/mcL (0.0-1.3); Neutrophils # 11.5 K/mcL (1.6-8.9); Platelet Estimate Normal (Normal); Reactive Lymphocytes Present (Not Present)
[2017-10-28 00:54] LABS: Anisocytosis 1+ (Not Present); Polychromasia 1+ (Not Present)
[2017-10-28] MEDS: Ipratropium/Albuterol Neb 3 ML IH SCH ×4 (05:01→22:06)
[2017-10-28 07:59] LABS: Myeloperoxidase Ab 2 AU/mL (0-19); Serine Protease-3 Antibody 0 AU/mL (0-19)
[2017-10-28 08:24] LABS: IFE Reflexed NOT DONE
[2017-10-28] MEDS ORDERED: Diltiazem CD (24hr) 120 MG CAPSULE PO ONE (08:52)
[2017-10-28] MEDS ORDERED: Diltiazem CD (24hr) 120 MG CAPSULE PO SCH (09:00)
--- NOTE | 2017-10-28 11:36 | Cardiology Progress Note ---
Date of Encounter: 10/28/17 Time of Encounter: 09:30 Assessment and Plan (1) Atrial fibrillation with rapid ventricular response Current Visit: Yes Status: Acute Per cardiology: -Afib RVR, likely secondary to renal status/hyperkalemia vs. infection -Average HR previous 12 hours noted to be 114, atrial fibrillation. -Patient had been on cardizem drip, now off. Was on cardizem CD 120, increased to 240mg yesterday. On beta zuleyka. -Echo shows LVEF 55% with severely dilated LA/RA -[id number] 4. Recommend senior care anticoagulation. Patient was started on heparin drip yesterday to see if he tolerated anticoagulation with hematuria. Hemoglobin stable. -Cardizem CD increased to 360mg daily. -Will continue to monitor. If remains tachycardic, will give IV lopressor. (2) Hematuria Current Visit: Yes Status: Acute Per cardiology: -Had hematuria this admisison while on heparin drip. Heparin was stopped and now restarted. -Seen by urology. -Hemoglobin 8.6 today. -No radha hematuria noted in huang catheter today. -Management per primary and urology services. Qualifiers: Hematuria type: unspecified type Qualified Code(s): R31.9 - Hematuria, unspecified (3) RUDDY (acute kidney injury) Current Visit: Yes Status: Acute Per cardiology: -Creatinine today 1.3. -Management per primary service. Discussion w patient/family: The assessment and plan as outlined above was discussed with the patient who expressed understanding and agreement. All questions were answered. Thank you for involving us in the care of your patient. Please call with any questions. Discussed and reviewed with Subjective Principal diagnosis: Afib RVR Interval history: Patient states he feels ok today. Denies complaints. Denies chest pain, palpitations. Objective Vital Signs, Last 4 Hours Temp Pulse Resp BP Pulse Ox 10/28/17 11:08 99.7 F H 98 16 135/66 96 10/28/17 10:20 18 99 General: Conversant, No Apparent Distress HEENT: Atraumatic, Normocephaly, Mucus Membranes Moist Neck: No JVD, Normal carotid pulses Cardiac: Normal S1 and S2, No Murmur, Other (Irregularly irregular) Lungs: Normal Breath Sounds, No Wheeze, Rales, Rhonchi Neuro: Alert and responsive, No focal deficits noted Abdomen: Soft, Non-Tender Skin: No rashes noted on visualized skin Musculoskeletal: No Chest Wall Tenderness Extremities: No Clubbing, No Cyanosis, No Edema, Normal Pulses Results 10/28/17 00:14 10/28/17 00:14 Lab Results Impressions Chest X-Ray 10/27/17 12:51 IMPRESSION: Findings most compatible with mild congestive heart failure slightly improved over the past few days. No definite pneumonia. D/ / Ab Goodwin MD / Ab Goodwin MD Interpreting Provider: Ab Goodwin MD Active Medications Albuterol Sulfate (Albuterol Inhaler) 2 puff IH Q2HR PRN PRN Reason: Dyspnea Stop: 04/25/18 00:07 Albuterol/Ipratropium (Duoneb) 3 ml IH QIDR JOSESITO Stop: 04/25/18 00:16 Last Admin: 10/28/17 10:20 Dose: 3 ml Diltiazem HCl (Cardizem Cd) 360 mg PO DAILY JOSESITO Stop: 04/30/18 09:01 Heparin Sodium (Porcine) (Heparin) 6,400 unit 70 unit/kg (6400 unit) IVP Q6H PRN PRN Reason: SEE COMMENTS Stop: 04/28/18 15:33 Heparin Sodium (Porcine) (Heparin) 3,200 unit 35 unit/kg (3200 unit) IVP Q6H PRN PRN Reason: SEE COMMENTS Stop: 04/28/18 15:33 Ciprofloxacin Lactate (Cipro Premix 200 Mg/100 Ml) 200 mg in 100 mls @ 100 mls/ hr IVPB Q12H JOSESITO Stop: 10/28/17 18:01 Last Infusion: 10/28/17 07:15 Dose: Infused Heparin Sodium/Dextrose (Heparin 25,000 Unit/500 Ml D5w) 25,000 unit in 500 mls @ 25.424 mls/hr IVC .[id number] JOSESITO; 14 UNIT/KG/HR PRN Reason: Protocol Stop: 04/28/18 15:46 Last Titration: 10/28/17 07:06 Dose: 14 unit/kg/hr, 25.424 mls/hr Lorazepam (Ativan) 1 mg IVP Q4HR PRN PRN Reason: Agitation Stop: 04/26/18 04:01 Menthol (Cough Drops) 9.1 mg PO Q2H PRN PRN Reason: Cough Stop: 04/25/18 04:53 Last Admin: 10/27/17 19:18 Dose: 9.1 mg Metoprolol Tartrate (Lopressor) 50 mg PO BID JOSESITO Stop: 04/27/18 09:01 Last Admin: 10/28/17 08:37 Dose: 50 mg Naloxone HCl (Narcan) 0.4 mg IVP Q2MIN PRN PRN Reason: Opioid Reversal Stop: 04/24/18 23:02 Polyethylene Glycol (Miralax) 17 gm PO DAILY PRN PRN Reason: Constipation Stop: 04/27/18 16:19 Senna/Docusate Sodium (Senna Plus) 2 each PO BID PRN; Protocol PRN Reason: Constipation Stop: 04/27/18 16:19 Laboratory Tests 10/23/17 10/27/17 10/27/17 16:17 04:36 04:36 WBC Hgb 8.8 L Potassium Creatinine 17.42 H 1.17 Magnesium 10/28/17 10/28/17 00:14 00:14 WBC 14.0 H Hgb 8.6 L Potassium 3.9 Creatinine 1.30 H Magnesium 1.7 - Imaging and Cardiology Chest Xray: report reviewed Echo: report reviewed - EKG Interpretation EKG results cardiology: other (Telemetry reviewed with average HR previous 12 hours noted to be 114, atrial fibrillation. PVCs noted.) Consult Discharge Plan - Plan Referrals: Joshua Narvaez, HOSIERY BAGGER [Primary Care Provider] -
[2017-10-28 12:50] LABS: ANA IgG by ELISA NONE DETECTED (None Detected); Complement Component 3 133 mg/dL (88-201); Complement Component 4 24 mg/dL (10-40)
[2017-10-28] MEDS: Heparin 25,000 UNIT/500 ML D5W 25,000 UNIT/500 ML BAG IVC SCH (14:27)
[2017-10-28] MEDS: Menthol 9.1 MG LOZENGE PO PRN (14:59)
--- NOTE | 2017-10-28 21:59 | Internal Med Progress Note ---
Date of Encounter: 10/28/17 Time of Encounter: 13:57 - Assessment and plan (1) Acute renal failure Current Visit: Yes Status: Acute Assessment and plan: Of unclear etiology, however likely secondary to bladder outlet obstruction RUDDY resolved Renal function back to baseline Renal US reported Mild bilateral hydronephrosis Nephrology on board and consultation appreciated Hyperkalemia resolved continue to avoid nephrotoxic agents will continue to closely monitor Qualifiers: Acute renal failure type: unspecified Qualified Code(s): N17.9 - Acute kidney failure, unspecified (2) Atrial fibrillation with rapid ventricular response Current Visit: Yes Status: Acute Assessment and plan: Off cardizem gtt increased Cardizem PO to 240mg PO qd TSH wnl etiology unclear, likely secondary to underlying renal failure continue BB dose to 50mg PO BID CHADVASC score: 2, unable to anticoagulate due to hematuria. Hematuria resolved at this time, will defer to cardiology for penitentiary AC. continue tele monitoring cardiology evaluation appreciated (3) Asthma Current Visit: Yes Status: Acute Assessment and plan: SOB improved since admission continue O2 supplementation and bronchodilator support as needed Qualifiers: Asthma severity: unspecified severity Asthma persistence: unspecified Asthma complication type: unspecified Qualified Code(s): J45.909 - Unspecified asthma, uncomplicated (4) UTI (urinary tract infection) Current Visit: Yes Status: Acute Assessment and plan: Completed 5 day course of antibiotics. Qualifiers: Urinary tract infection type: site unspecified Hematuria presence: without hematuria Qualified Code(s): N39.0 - Urinary tract infection, site not specified (5) Obesity (BMI 30.0-34.9) Current Visit: Yes Status: Acute (6) Metabolic acidosis Current Visit: Yes Status: Resolved Assessment and plan: likely secondary to acute renal failure Resolved (7) Dislodged Reyes catheter Current Visit: Yes Status: Acute Qualifiers: Encounter type: initial encounter Qualified Code(s): T83.021A - Displacement of indwelling urethral catheter, initial encounter (8) Leukocytosis, unspecified Current Visit: Yes Status: Acute Assessment and plan: Pt reported to have bandemia, however no clinical signs of infection afebrile respiratory status at baseline Urine culture reported No growth will obtain CXR to r/o any infectious etiology will continue to closely monitor will obtain blood cultures Qualifiers: Leukocytosis type: bandemia Qualified Code(s): D72.825 - Bandemia (9) Bilateral hydronephrosis Current Visit: Yes Status: Acute (10) Hematuria Current Visit: Yes Status: Acute Qualifiers: Hematuria type: unspecified type Qualified Code(s): R31.9 - Hematuria, unspecified (11) DVT prophylaxis Current Visit: Yes Status: Acute Assessment and plan: Heparin drip starting today - Constitutional Vitals: Temp Pulse Resp BP Pulse Ox 98.6 F 93 16 136/76 97 10/28/17 19:30 10/28/17 19:30 10/28/17 19:30 10/28/17 19:30 10/28/17 19:30 General appearance: Present: A&O X 1, no acute distress Internal Medicine: Result - Labs CBC & Chem 7: 10/28/17 00:14 10/28/17 00:14 Labs: Short CBC 10/28/17 Range/Units 00:14 WBC 14.0 H (4.3-11.1) K/mcL Hgb 8.6 L (12.9-16.9) g/dL Hct 28.3 L (37.5-50.1) % Plt Count 307 (140-400) K/mcL Neutrophils # 11.5 H (1.6-8.9) K/mcL BMP 10/28/17 00:14 Sodium 136 Potassium 3.9 Chloride 105 Carbon Dioxide 23 BUN 21 Creatinine 1.30 H Glucose 126 H Calcium 8.3 L - ABG Interpretation ABG results: PT/INR, D-dimer PT 16.3 Seconds (9.4-12.1) H 10/27/17 15:56 Consult Discharge Plan - Plan Referrals: Joshua Narvaez, SCHOOL PHYSICAL THERAPIST [Primary Care Provider] -
[2017-10-29] MEDS: Ipratropium/Albuterol Neb 3 ML IH SCH ×4 (03:28→23:00)
[2017-10-29] MEDS: Diltiazem CD (24hr) 180 MG CAPSULE PO SCH (07:48)
[2017-10-29 08:41] LABS: Hemoglobin 8.5 g/dL (12.9-16.9); Mean Corpuscular HGB Conc 30.4 g/dL (31.6-35.5); Mean Corpuscular Hemoglobin 23.1 pg (28.0-33.3); Mean Corpuscular Volume 76.1 fL (83.0-100.0); Mean Platelet Volume 9.8 fL (9.4-12.4); Platelet Count 286 K/mcL (140-400); Red Blood Count 3.68 M/mcL (4.19-5.50); Red Cell Distribution Width 16.7 % (11.5-14.5)
[2017-10-29 08:48] LABS: BUN/Creatinine Ratio 21 (6-26); Blood Urea Nitrogen 18 mg/dL (8-26); Calcium 7.9 mg/dL (8.6-10.8); Carbon Dioxide 24 mEq/L (19-29); Chloride 106 mEq/L (98-109); Glucose 113 mg/dL (70-99); Magnesium 1.5 mg/dL (1.6-2.6); Osmolality,Calculated 289 (280-300); Phosphorous 2.8 mg/dL (2.3-4.7); Potassium 3.6 mEq/L (3.5-4.5); Sodium 138 mEq/L (136-145); eGFR For African Americans > 60 (> 60); eGFR For Non-African Americans > 60 (> 60)
[2017-10-29 09:08] LABS: Eosinophils # 0.5 K/mcL (0.0-0.6); Hypochromasia Present (Not Present); Lymphocytes # 0.8 K/mcL (0.6-4.6); Monocytes # 1.3 K/mcL (0.0-1.3); Neutrophils # 10.1 K/mcL (1.6-8.9); Platelet Estimate Normal (Normal); Polychromasia 1+ (Not Present); Target Cells 1+ (Not Present)
[2017-10-29] MEDS: Heparin 25,000 UNIT/500 ML D5W 25,000 UNIT/500 ML BAG IVC SCH (09:26)
--- NOTE | 2017-10-29 13:58 | Internal Med Progress Note ---
Date of Encounter: 10/29/17 Time of Encounter: 13:15 - Assessment and plan (1) Acute renal failure Current Visit: Yes Status: Acute Assessment and plan: Of unclear etiology, however likely secondary to bladder outlet obstruction RUDDY resolved Renal function back to baseline Renal US reported Mild bilateral hydronephrosis Nephrology consultation signed off Hyperkalemia resolved continue to avoid nephrotoxic agents will continue to closely monitor Qualifiers: Acute renal failure type: unspecified Qualified Code(s): N17.9 - Acute kidney failure, unspecified (2) Metabolic acidosis Current Visit: Yes Status: Resolved Assessment and plan: likely secondary to acute renal failure Resolved (3) UTI (urinary tract infection) Current Visit: Yes Status: Acute Assessment and plan: Completed 5 day course of antibiotics. Qualifiers: Urinary tract infection type: site unspecified Hematuria presence: without hematuria Qualified Code(s): N39.0 - Urinary tract infection, site not specified (4) Hyperkalemia Current Visit: Yes Status: Resolved (5) Atrial fibrillation with rapid ventricular response Current Visit: Yes Status: Acute Assessment and plan: Off cardizem gtt continue Cardizem PO to 240mg PO qd TSH wnl etiology unclear, likely secondary to underlying renal failure continue BB dose to 50mg PO BID CHADVASC score: 2, unable to anticoagulate due to hematuria. started on Heparin gtt bridging to coumadin continue tele monitoring cardiology evaluation appreciated (6) Asthma Current Visit: Yes Status: Acute Assessment and plan: SOB improved since admission continue O2 supplementation and bronchodilator support as needed Qualifiers: Asthma severity: unspecified severity Asthma persistence: unspecified Asthma complication type: unspecified Qualified Code(s): J45.909 - Unspecified asthma, uncomplicated (7) DVT prophylaxis Current Visit: Yes Status: Acute Assessment and plan: Heparin drip bridging to coumadin (8) Obesity (BMI 30.0-34.9) Current Visit: Yes Status: Chronic (9) Decreased urination Current Visit: Yes Status: Acute Assessment and plan: No prior history of BPH or bladder outlet obstruction (upon arrival was found to have 700ml of urine removed once huang cath was placed) urology on board and consultation appreciated pt to be discharge with huang cath (10) Hypomagnesemia Current Visit: Yes Status: Acute Assessment and plan: Mg supplemented continue to monitor electrolytes and replace as needed (11) Leukocytosis, unspecified Current Visit: Yes Status: Acute Assessment and plan: bandemia resolved leukocytosis improved no clinical signs of infectious etiology Qualifiers: Leukocytosis type: unspecified Qualified Code(s): D72.829 - Elevated white blood cell count, unspecified - Subjective Interval history: Patient seen and examined at bedside. Resting in bed and denies any discomfort. Noted to have mild bleeding at the penile meatus however H&H stable, therefore will continue heparin gtt to bridge to coumadin Rate controlled with Metoprolol and Cardizem PT/OT evaluation requested As per patient's , patient does not have insurance coverage to buy his medications after discharge. instrument worker consultation requested for assistance with home meds. - Constitutional Vitals: Temp Pulse Resp BP Pulse Ox 97.9 F 92 18 125/74 94 10/29/17 10:58 10/29/17 10:58 10/29/17 10:59 10/29/17 10:58 10/29/17 10:59 General appearance: Present: A&O X 2, no acute distress - Head Head exam: Present: atraumatic, normocephalic - Respiratory Respiratory exam: Present: CTAB. Absent: respiratory distress, wheezes - Cardiovascular Cardiovascular exam: Present: irregular rhythm, +S1, +S2. Absent: diastolic murmur, systolic murmur - GI/Abdominal GI/Abdominal exam: Present: normal bowel sounds, soft, no peritoneal signs. Absent: distended, tenderness - Extremities Exam Extremities exam: Present: warm, radial pulses palpable and symmetrical. Absent : calf tenderness, cyanotic, pedal edema - Neurological Exam Neurological exam: Present: alert - Psychiatric Psychiatric exam: Present: normal affect, normal mood Internal Medicine: Result - Labs CBC & Chem 7: 10/29/17 08:18 10/29/17 08:18 Labs: Short CBC 10/29/17 Range/Units 08:18 WBC 12.9 H (4.3-11.1) K/mcL Hgb 8.5 L (12.9-16.9) g/dL Hct 28.0 L (37.5-50.1) % Plt Count 286 (140-400) K/mcL Neutrophils # 10.1 H (1.6-8.9) K/mcL BMP 10/29/17 08:18 Sodium 138 Potassium 3.6 Chloride 106 Carbon Dioxide 24 BUN 18 Creatinine 0.87 Glucose 113 H Calcium 7.9 L - ABG Interpretation ABG results: PT/INR, D-dimer PT 16.3 Seconds (9.4-12.1) H 10/27/17 15:56 Consult Discharge Plan - Plan Referrals: Joshua Narvaez, ADIA [Primary Care Provider] - 11/06/17 4:20 pm
[2017-10-29 15:09] LABS: INR 1.5; Prothrombin Time 16.1 Seconds (9.4-12.1)
[2017-10-29] MEDS ORDERED: *HR* Warfarin 2.5 MG TABLET PO ONE (18:00)
[2017-10-29] MEDS ORDERED: Warfarin perPT PO PRN (18:00)
[2017-10-30] MEDS: Ipratropium/Albuterol Neb 3 ML IH SCH ×2 (04:13→10:33)
[2017-10-30] MEDS: Heparin 25,000 UNIT/500 ML D5W 25,000 UNIT/500 ML BAG IVC SCH (05:13)
[2017-10-30 06:49] LABS: Basophils # 0.1 K/mcL (0.0-0.2); Basophils % 0.4 %; Eosinophils # 0.5 K/mcL (0.0-0.6); Eosinophils % 3.7 %; Hemoglobin 8.3 g/dL (12.9-16.9); Immature Granulocytes % 3.6 % (0-4); Lymphocytes # 1.2 K/mcL (0.6-4.6); Lymphocytes % 9.1 %; Mean Corpuscular HGB Conc 29.6 g/dL (31.6-35.5); Mean Corpuscular Hemoglobin 22.6 pg (28.0-33.3); Mean Corpuscular Volume 76.3 fL (83.0-100.0); Mean Platelet Volume 10.7 fL (9.4-12.4); Monocytes % 7.6 %; Neutrophils # 10.2 K/mcL (1.6-8.9); Platelet Count 277 K/mcL (140-400); Red Blood Count 3.67 M/mcL (4.19-5.50); Segmented Neutrophils % 75.6 %
[2017-10-30 06:55] VITALS: BP 128/64
[2017-10-30 07:00] LABS: BUN/Creatinine Ratio 19 (6-26); Blood Urea Nitrogen 19 mg/dL (8-26); Carbon Dioxide 24 mEq/L (19-29); Chloride 105 mEq/L (98-109); Glucose 115 mg/dL (70-99); Magnesium 1.8 mg/dL (1.6-2.6); Osmolality,Calculated 289 (280-300); Phosphorous 2.7 mg/dL (2.3-4.7); Potassium 3.6 mEq/L (3.5-4.5); Sodium 138 mEq/L (136-145); eGFR For African Americans > 60 (> 60); eGFR For Non-African Americans > 60 (> 60)
[2017-10-30 07:07] LABS: INR 1.4; Prothrombin Time 15.5 Seconds (9.4-12.1)
[2017-10-30] MEDS: Diltiazem CD (24hr) 180 MG CAPSULE PO SCH (07:56)
--- NOTE | 2017-10-30 10:50 | Event Note ---
Date of Encounter: 10/30/17 Time of Encounter: 10:47 - Cardiology Event Note Patient with atrial fibrillation. Has been on heparin for anticoagulation. Started on coumadin. I reviewed patient's records, if no history CVA other embolic event, no need for bridging to coumadin. Average HR previous 12 hours 95. Will increase beta zuleyka to 75mg BID. ON cardizem CD 360mg. Patient will follow with cardiology in outpatient setting.
--- NOTE | 2017-10-30 12:55 | Discharge Summary ---
Date of Encounter: 10/30/17 Time of Encounter: 12:25 - Discharge Diagnosis (1) Acute renal failure Priority: Primary Status: Acute Qualifiers: Acute renal failure type: unspecified Qualified Code(s): N17.9 - Acute kidney failure, unspecified (2) Metabolic acidosis Priority: Secondary Status: Resolved (3) UTI (urinary tract infection) Priority: Secondary Status: Acute Qualifiers: Urinary tract infection type: site unspecified Hematuria presence: without hematuria Qualified Code(s): N39.0 - Urinary tract infection, site not specified (4) Hyperkalemia Priority: Secondary Status: Resolved (5) Atrial fibrillation with rapid ventricular response Priority: Primary Status: Acute (6) Asthma Priority: Secondary Status: Acute Qualifiers: Asthma severity: unspecified severity Asthma persistence: unspecified Asthma complication type: unspecified Qualified Code(s): J45.909 - Unspecified asthma, uncomplicated (7) DVT prophylaxis Priority: Secondary Status: Acute (8) Obesity (BMI 30.0-34.9) Priority: Secondary Status: Chronic (9) Decreased urination Priority: Secondary Status: Acute (10) Hypomagnesemia Priority: Secondary Status: Acute (11) Leukocytosis, unspecified Priority: Secondary Status: Acute Qualifiers: Leukocytosis type: unspecified Qualified Code(s): D72.829 - Elevated white blood cell count, unspecified - Discharge Medications Prescriptions: Warfarin [Coumadin] 2.5 mg PO 1800 #15 tablet Home Medications: Garlic [Odor Free Garlic] 100 mg PO DAILY 10/23/17 [History] Multivit-Min/FA/Lycopen/Lutein [Men 50 Plus Multivitamin Tab] 1 tab PO DAILY 05/04 [History] Vitamin E Acetate [Vitamin E] 400 unit PO DAILY 10/23/17 [History] Albuterol Sulfate [Albuterol Inhaler] 2 puff IH Q4HR PRN inhaler 10/30/17 [Rx] Diltiazem CD (24hr) [Cardizem CD] 360 mg PO DAILY cap.er.24h 10/30/17 [Rx] Metoprolol [Lopressor] 75 mg PO BID tablet 10/30/17 [Rx] Sennosides/Docusate Sodium [Senna Plus] 2 each PO BID PRN tablet 10/30/17 [Rx] Warfarin [Coumadin] 2.5 mg PO 1800 #15 tablet 10/30/17 [Rx] Allergies/Adverse Reactions: 3 Allergy/AdvReac Type Severity Reaction Status Date / Time aspirin Allergy Swelling Verified 10/23/17 15:50 of Lip/Tongue/Throat Date of admission: 10/24/17 07:24 Primary care physician: Joshua Narvaez CNP Consults: 10/24/17 14:18 Consult to Occupational Therapy [CONS] Routine Comment: Evaluate, develop and implement POC Reason for Consult: assess PT/OT needs for discharge Consult to Physical Therapy [CONS] Routine Comment: Evaluate, develop and implement POC Reason for Consult: assess PT/OT needs for discharge 10/25/17 00:19 Consult to Urology [CONS] Stat Consulting Provider: Urology Kim Reason for Consult: Pt needs CBI Call Completed: Yes Discharging clinician: Rebecca Moise Anticipated date of discharge: 10/30/17 - Patient Status Disposition: Transfer SNF Condition: Fair Functional capacity at discharge: uses cane/walker Overall status at discharge: patient is back to baseline - Discharge Instructions Follow Up With: Joshua Narvaez CNP [Primary Care Provider] - 11/06/17 4:20 pm Additional Instructions: Please follow up with your primary care physician within five days after your discharge from the hospital. Please follow up with urology and cardiology within one week after your discharge from the hospital. Please continue Metoprolol, cardizem, Coumadin as prescribed. Monitor your INR daily, goal INR: 2-3, cardiology will monitor your INR after discharge. Please seek medical help if chest pain occurs. - Diet and Activity Activity: as per physical therapy Diet: low fat, low cholesterol, low salt diet Hospital course: Mr. Abreu is a 82 year old male with PMH of asthma who was admitted for acute renal failure, new onset Afib with RVR. Patient was followed by nephrology, started on IV fluids to which he responded appropriately. He was started on cardizem gtt, heparin gtt and cardiology evaluation was requested. His hospital course was complicated by urinary retention, requiring huang support however patient became agitated pulling on his huang catheter causing hematuria secondary to the trauma. Urology was consulted and recommended CBI infusion and continuation of huang care. Pt's hematuria resolved and he was started back on heparin gtt. Given no prior history of CVA, and low risk factors, pt will not need heparin gtt to bridge with coumadin. He was started on BB and cardizem PO with appropriate rate control. He was also treated for a UTI for which he has finished treatment. He was evaluated by physical therapy and ECF was recommended. Pt has underlying dementia, his mental status waxes and wanes. Consent for ECF was obtained by his POA (). Pt is stable for discharge and will be discharged to ECF with indwelling huang cath. He will follow with urology as outpatient in addition to cardiology and pcp. Cardiology will monitor his INR after discharge. - Time Spent with Patient Total time spent providing and/or coordinating discharge services: Greater than 30 minutes - Constitutional Vitals: Temp Pulse Resp BP Pulse Ox 98 F 115 17 128/64 93 10/30/17 06:52 10/30/17 06:52 10/30/17 06:52 10/30/17 06:52 10/30/17 06:52 General appearance: Present: A&O X 2, no acute distress - Head Head exam: Present: atraumatic, normocephalic - Eye Eye exam: Present: conjuntiva pink, sclera anicteric - Respiratory Respiratory exam: Present: CTAB. Absent: respiratory distress, wheezes - Cardiovascular Cardiovascular exam: Present: irregular rhythm, +S1, +S2. Absent: diastolic murmur, systolic murmur - GI/Abdominal GI/Abdominal exam: Present: normal bowel sounds, soft, no peritoneal signs. Absent: distended, tenderness - Extremities Exam Extremities exam: Present: warm, radial pulses palpable and symmetrical. Absent : calf tenderness - Neurological Exam Neurological exam: Present: alert
--- NOTE | 2017-10-30 13:06 | Physician Discharge Referral ---
ExtendedCare Referral Info Transfer To: ECF Provider in Charge after Transfer: PCP - Diagnosis (1) Acute renal failure Priority: Primary Status: Acute (2) Metabolic acidosis Priority: Secondary Status: Resolved (3) UTI (urinary tract infection) Priority: Secondary Status: Acute (4) Hyperkalemia Priority: Secondary Status: Resolved (5) Atrial fibrillation with rapid ventricular response Priority: Secondary Status: Acute (6) Asthma Priority: Secondary Status: Acute (7) DVT prophylaxis Priority: Secondary Status: Acute (8) Obesity (BMI 30.0-34.9) Priority: Secondary Status: Chronic (9) Decreased urination Priority: Secondary Status: Acute (10) Hypomagnesemia Priority: Secondary Status: Acute (11) Leukocytosis, unspecified Priority: Secondary Status: Acute - Transfer Medications Prescriptions: Warfarin [Coumadin] 2.5 mg PO 1800 #15 tablet Home Medications: Garlic [Odor Free Garlic] 100 mg PO DAILY 10/23/17 [History] Multivit-Min/FA/Lycopen/Lutein [Men 50 Plus Multivitamin Tab] 1 tab PO DAILY 05/04 [History] Vitamin E Acetate [Vitamin E] 400 unit PO DAILY 10/23/17 [History] Albuterol Sulfate [Albuterol Inhaler] 2 puff IH Q4HR PRN inhaler 10/30/17 [Rx] Diltiazem CD (24hr) [Cardizem CD] 360 mg PO DAILY cap.er.24h 10/30/17 [Rx] Metoprolol [Lopressor] 75 mg PO BID tablet 10/30/17 [Rx] Sennosides/Docusate Sodium [Senna Plus] 2 each PO BID PRN tablet 10/30/17 [Rx] Warfarin [Coumadin] 2.5 mg PO 1800 #15 tablet 10/30/17 [Rx] Allergies/Adverse Reactions: 3 Allergy/AdvReac Type Severity Reaction Status Date / Time aspirin Allergy Swelling Verified 10/23/17 15:50 of Lip/Tongue/Throat - Respiratory Orders Smoking Cessation: Smoking cessation has been advised. For more information, call the [place] Tobacco Quit Line at 7-515-IPZL-NOW. - Lab Orders Lab Orders: Other (include drug levels w/frequency) (INR DAILY UNTIL INR IS BETWEEN 2-3) - Treatments List/Other: Please follow up with your primary care physician within five days after your discharge from the hospital. Please follow up with urology and cardiology within one week after your discharge from the hospital. Please continue Metoprolol, cardizem, Coumadin as prescribed. Monitor your INR daily, goal INR: 2-3, cardiology will monitor your INR after discharge. Please seek medical help if chest pain occurs. CERTIFICATION: I certify that the transfer of the above named patient to an Extended Care Facility is necessary for the continuing treatment of the diagnosis listed. The above information is true and accurate reflection of patient's current condition. Confidential - Redisclosure prohibited without a patient's written consent.
[2017-10-30] MEDS ORDERED: *HR* Warfarin 2.5 MG TABLET PO SCH (18:00)
[2017-10-30] MEDS ORDERED: Metoprolol 100 MG TABLET PO SCH (21:00)
== END 2017-10-30 16:01 | DRG 309 ==
LOC: 2NENU 15:46 → EMEROO 15:46 → 2NENU 20:40 → SUATTDRO 10-24 07:24
PROVIDERS: ADMIT Internal Medicine; ATTEND Internal Medicine

== ENCOUNTER 2017-12-01 00:26 | Inpatient (IN) ==
[2017-12-01] MEDS ORDERED: Naloxone 0.4 MG/ML INJ IVP PRN (03:04)
[2017-12-01] MEDS ORDERED: Ondansetron 4 MG/2 ML VIAL IVP PRN (03:04)
[2017-12-01] MEDS ORDERED: Sennosides/Docusate Sodium TABLET PO PRN (03:07)
--- NOTE | 2017-12-01 03:31 | Internal Med History&Physical ---
Date of Encounter: 12/01/17 Time of Encounter: 03:10 Assessment and Plan (1) Sepsis Current visit: Yes Status: Acute Secondary to CAUTI continue IV ceftriaxone f/u urine culture awaiting urology evaluation for huang change as the initial huang cath was placed by urology f/u repeat LA f/u blood cultures Qualifiers: Sepsis type: sepsis due to unspecified organism Qualified Code(s): A41.9 - Sepsis, unspecified organism (2) Catheter-associated urinary tract infection Current visit: Yes Status: Acute as listed above Qualifiers: Indwelling urinary catheter type: indwelling urethral catheter Encounter type: initial encounter Qualified Code(s): T83.511A - Infection and inflammatory reaction due to indwelling urethral catheter, initial encounter; N39.0 - Urinary tract infection, site not specified; N39.0 - Urinary tract infection, site not specified (3) CHF exacerbation Current visit: Yes Status: Acute Acute respiratory distress secondary to CHF exacerbation pt received one time dose of Lasix at the [facility] however became hypotensive shortly after requiring IV fluid bolus (500cc NS) will continue IV lasix as tolerated fluid restriction diet monitor I/Os daily weights consider cardiology evaluation if patient does not clinically improve despite diuretic therapy Qualifiers: Congestive heart failure type: unspecified Qualified Code(s): I50.9 - Heart failure, unspecified (4) Afib Current visit: Yes Status: Chronic Rate controlled with BB anticoagulated with Coumadin INR within therapeutic range, will continue to monitor Qualifiers: Atrial fibrillation type: chronic Qualified Code(s): I48.2 - Chronic atrial fibrillation (5) Metabolic acidosis Current visit: Yes Status: Acute likely secondary to GI losses will start PO Bicarb supplementation continue to closely monitor (6) Acute kidney injury superimposed on chronic kidney disease Current visit: Yes Status: Acute secondary to underlying infection Need to give IV diuresis given CHF decompensation will obtain nephrology evaluation (please call in am) continue to closely monitor (7) DVT prophylaxis Current visit: Yes Status: Acute on coumadin (8) Elevated troponin Current visit: Yes Status: Acute likely demand ischemia secondary to CHF decompensation will continue to trend serial TNI no signs of angina present will closely monitor (9) Chronic indwelling Huang catheter Current visit: Yes Status: Acute Urology evaluation requested due to urinary retention and indwelling huang cath It was difficult huang placement during his last hospitalization and urology placed the huang cath Please call urology in am Internal Medicine - H&P: HPI Chief complaint: transfer from [facility] for sepsis secondary to CAUTI Admitted From: Intrahospital Transfer History of present illness: Mr. Abreu is a 82 year old male with PMH Of Afib, CHF, urinary retention, asthma who was transferred from [facility] for further management of sepsis secondary to CAUTI and CHF exacerbation. Pt was discharged from [facility] on with a huang catheter and outpatient follow up was recommended for huang removal. Pt never followed up with urology. He was initially discharged to [facility] and went home two weeks ago. Pt has underlying dementia and mental status waxes and wanes due to which history is obtained from the records. As per records, pt started feeling weak and short of breath to a degree that he could not get out of bed due to the shortness of breath. Prior to today, pt was able to ambulate to the bathroom and back without respiratory distress. He has been nauseous and vomiting/diarrhea for the last couple of days as per his . Upon arrival to the ER, he was noted to hypoxic secondary to volume overload. He received Lasix IV and shortly after which he became hypotensive, SBP in 80s, requiring 500cc IV fluid administration. At this time, he is resting in bed and reports of feeling better. He is saturating well on 2L NC, denies any chest pain, fever, or chills at this time. Pt's (POA) requested his code status to be DNRCCA as per the records at [facility] Past Med Surg Social Fam HX - Past Medical History Medical history: asthma, atrial fibrillation Psychiatric history: no psych history - Past Surgical History Surgical History: no surgical history, other - Social History Smoking Status: Former smoker Smokeless Tobacco Status: No Alcohol use: none Drug use: none - Family History Mother Hx Family Cardiac Disorders: No Hx Family Cancer: No Internal Medicine - H&P: Meds Garlic [Odor Free Garlic] 100 mg PO DAILY 10/23/17 [History] Multivit-Min/FA/Lycopen/Lutein [Men 50 Plus Multivitamin Tab] 1 tab PO DAILY 05/04 [History] Vitamin E Acetate [Vitamin E] 400 unit PO DAILY 10/23/17 [History] Albuterol Sulfate [Albuterol Inhaler] 2 puff IH Q4HR PRN inhaler 10/30/17 [Rx] Diltiazem CD (24hr) [Cardizem CD] 360 mg PO DAILY cap.er.24h 10/30/17 [Rx] Metoprolol [Lopressor] 75 mg PO BID tablet 10/30/17 [Rx] Sennosides/Docusate Sodium [Senna Plus] 2 each PO BID PRN tablet 10/30/17 [Rx] Warfarin [Coumadin] 2.5 mg PO 1800 #15 tablet 10/30/17 [Rx] 3 Allergy/AdvReac Type Severity Reaction Status Date / Time aspirin Allergy Swelling Verified 10/23/17 15:50 of Lip/Tongue/Throat All Systems PM: A 10-system review of systems was performed and is negative for pertinent findings except as documented above in the HPI. - Constitutional Constitutional: as per HPI - Constitutional Vitals: Temp Pulse Resp BP Pulse Ox 97.3 F L 77 18 96/63 99 12/01/17 02:43 12/01/17 02:43 12/01/17 02:43 12/01/17 02:43 12/01/17 02:43 General appearance: Present: A&O X 2, no acute distress - Head Head exam: Present: atraumatic, normocephalic - Eye Eye exam: Present: conjuntiva pink, sclera anicteric - Respiratory Respiratory exam: Present: decreased breath sounds, wheezes (diffuse expiratory wheezing, decreased air entry bilaterally ). Absent: respiratory distress - Cardiovascular Cardiovascular exam: Present: RRR, +S1, +S2. Absent: diastolic murmur, gallop, rubs, systolic murmur - GI/Abdominal GI/Abdominal exam: Present: normal bowel sounds, soft, no peritoneal signs. Absent: distended, tenderness - Extremities Exam Extremities exam: Present: pedal edema (trace pedal edema), warm, radial pulses palpable and symmetrical. Absent: calf tenderness, cyanotic - Neurological Exam Neurological exam: Present: alert
[2017-12-01] MEDS: Ipratropium/Albuterol Neb 3 ML IH SCH ×7 (03:32→23:52)
[2017-12-01 03:33] LABS: Basophils % 0.2 %; Hematocrit 30.8 % (37.5-50.1); Immature Granulocytes % 0.6 % (0-4); Lymphocytes # 1.6 K/mcL (0.6-4.6); Mean Corpuscular HGB Conc 29.2 g/dL (31.6-35.5); Mean Corpuscular Hemoglobin 21.9 pg (28.0-33.3); Mean Corpuscular Volume 74.9 fL (83.0-100.0); Mean Platelet Volume 10.3 fL (9.4-12.4); Monocytes # 1.2 K/mcL (0.0-1.3); Monocytes % 10.7 %; Neutrophils # 8.7 K/mcL (1.6-8.9); Platelet Count 223 K/mcL (140-400); Red Blood Count 4.11 M/mcL (4.19-5.50); Red Cell Distribution Width 16.7 % (11.5-14.5); Segmented Neutrophils % 74.5 %
[2017-12-01 03:39] LABS: INR 2.1; Prothrombin Time 23.4 Seconds (9.4-12.1)
[2017-12-01 03:53] LABS: Magnesium 1.8 mg/dL (1.6-2.6); Phosphorous 4.4 mg/dL (2.7-4.5)
[2017-12-01 03:54] LABS: Calcium 8.6 mg/dL (8.6-10.3); Potassium 4.6 mEq/L (3.5-5.1)
[2017-12-01] MEDS ORDERED: Furosemide 40 MG/4 ML VIAL IVP SCH ×3 (08:00→14:33)
--- NOTE | 2017-12-01 09:07 | Urology Progress Note ---
Date of Encounter: 12/01/17 Time of Encounter: 09:05 - Assessment and Plan (1) Chronic indwelling Reyes catheter Current Visit: Yes Status: Acute Assessment and plan: hematuria cath removed and replaced by 18 silicone cath. unless pt improves clinically he may require chronic indwelling cath. Progress Note Narrative: pt reports no cath discomfort. Objective Initial Vital Signs Temp Pulse Resp BP Pulse Ox 97.3 F L 77 18 96/63 99 12/01/17 02:43 12/01/17 02:43 12/01/17 02:43 12/01/17 02:43 12/01/17 02:43 - General physical appearance Present: chronically ill - Additional Exam [address] draining clear urine. some erosion at meatus cath removed and replaced with 18 bengali silicone cath by MD - Labs 12/01/17 03:23 12/01/17 03:23 Diabetes panel 12/01/17 Range/Units 03:23 Sodium 140 (136-145) mEq/L Potassium 4.6 (3.5-5.1) mEq/L Chloride 107 (98-107) mEq/L Carbon Dioxide 25 (23-29) mEq/L BUN 31 H (8-23) mg/dL Creatinine 2.19 H (0.70-1.30) mg/dL Glucose 134 H (70-105) mg/dL Calcium 8.6 (8.6-10.3) mg/dL Calcium panel 12/01/17 12/01/17 Range/Units 03:23 03:23 Calcium 8.6 (8.6-10.3) mg/dL Phosphorus 4.4 (2.7-4.5) mg/dL Pituitary panel 12/01/17 Range/Units 03:23 Sodium 140 (136-145) mEq/L Potassium 4.6 (3.5-5.1) mEq/L Chloride 107 (98-107) mEq/L Carbon Dioxide 25 (23-29) mEq/L BUN 31 H (8-23) mg/dL Creatinine 2.19 H (0.70-1.30) mg/dL Glucose 134 H (70-105) mg/dL Calcium 8.6 (8.6-10.3) mg/dL Adrenal panel 12/01/17 Range/Units 03:23 Sodium 140 (136-145) mEq/L Potassium 4.6 (3.5-5.1) mEq/L Chloride 107 (98-107) mEq/L Carbon Dioxide 25 (23-29) mEq/L BUN 31 H (8-23) mg/dL Creatinine 2.19 H (0.70-1.30) mg/dL Glucose 134 H (70-105) mg/dL Calcium 8.6 (8.6-10.3) mg/dL Consult Discharge Plan - Plan Referrals: Joshua Narvaez, ADIA [Primary Care Provider] -
[2017-12-01] MEDS: cefTRIAXone 1,000 MG in Water for inj. (sterile) 20 ML 10 ML IVP SCH (10:36)
[2017-12-01] MEDS: Multivit/Ca/Min/Fe/FA 1 TAB TABLET PO SCH (10:37)
[2017-12-01] MEDS: Diltiazem CD (24hr) 180 MG CAPSULE PO SCH (10:37)
[2017-12-01] MEDS: GARLIC 100 MG PO SCH (10:38)
--- NOTE | 2017-12-01 12:55 | Nephrology Consult Note ---
Date of Encounter: 12/01/17 Time of Encounter: 12:52 Assessment and Plan (1) Acute kidney injury superimposed on chronic kidney disease Current Visit: Yes Status: Acute Patient with multiple episodes of RUDDY presenting with another episode of RUDDY of unclear etiology. Seems to be related to his infection. Patient also with troponin elevation that could represent cardiac insult. No acute need for dialysis I recommend a fluid challenge. If fluid challenge unremarkable or respiratory status worsens will reconsider diuretic. Avoid nephrotoxins. Adjust medications for renal function. (2) Catheter-associated urinary tract infection Current Visit: Yes Status: Acute Per primary team and urology. Continue antibiotics. Qualifiers: Indwelling urinary catheter type: indwelling urethral catheter Encounter type: initial encounter Qualified Code(s): T83.511A - Infection and inflammatory reaction due to indwelling urethral catheter, initial encounter; N39.0 - Urinary tract infection, site not specified; N39.0 - Urinary tract infection, site not specified (3) Anemia Current Visit: Yes Status: Acute Qualifiers: Qualified Code(s): D64.9 - Anemia, unspecified (4) Elevated troponin I level Current Visit: No Status: Acute Per primary team. Consider cardiology consult if not already done. (5) Cough Current Visit: Yes Status: Acute Respiratory panel ordered. Patient with cough associated with leukocytosis. History of Present Illness - Reason for Consult Consult date: 12/01/17 Acute Kidney Injury - Chief Complaint ruddy - History of Present Illness Mr Abreu is an 82 yo man with a history of CKD who presents secondary to nausea , vomiting and diarrhea per the admission HPI. Patient has a history of dementia and the admission H&P was used for the history. [facility] was consulted for acute kidney injury. Patient with nausea, vomiting and diarrhea prior to admission. Past Med Surg Social Fam HX - Past Medical History Medical history: asthma, atrial fibrillation Psychiatric history: no psych history - Past Surgical History Surgical History: no surgical history, other - Social History Smoking Status: Former smoker Smokeless Tobacco Status: No Alcohol use: none Drug use: none - Family History Mother Hx Family Cardiac Disorders: No Hx Family Cancer: No Medications and Allergies Garlic [Odor Free Garlic] 100 mg PO DAILY 10/23/17 [History] Multivit-Min/FA/Lycopen/Lutein [Men 50 Plus Multivitamin Tab] 1 tab PO DAILY 05/04 [History] Vitamin E Acetate [Vitamin E] 400 unit PO DAILY 10/23/17 [History] Albuterol Sulfate [Albuterol Inhaler] 2 puff IH Q4HR PRN inhaler 10/30/17 [Rx] Diltiazem CD (24hr) [Cardizem CD] 360 mg PO DAILY cap.er.24h 10/30/17 [Rx] Metoprolol [Lopressor] 75 mg PO BID tablet 10/30/17 [Rx] Sennosides/Docusate Sodium [Senna Plus] 2 each PO BID PRN tablet 10/30/17 [Rx] Warfarin [Coumadin] 2.5 mg PO 1800 #15 tablet 10/30/17 [Rx] 3 Allergy/AdvReac Type Severity Reaction Status Date / Time aspirin Allergy Swelling Verified 10/23/17 15:50 of Lip/Tongue/Throat Review of Systems All Systems: reviewed and no additional remarkable complaints except as stated ( as documented in the HPI.) Exam - Vital Signs Vital signs: Initial Vital Signs Temp Pulse Resp BP Pulse Ox 97.3 F L 77 18 96/63 99 12/01/17 02:43 12/01/17 02:43 12/01/17 02:43 12/01/17 02:43 12/01/17 02:43 Vital Signs - Last 8 Hours Temp Pulse Resp BP Pulse Ox 12/01/17 11:08 16 98 12/01/17 10:52 97.9 F 88 14 110/77 98 12/01/17 08:06 16 99 12/01/17 06:41 98.7 F 88 14 105/69 98 Intake and Output 11/30/17 12/01/17 12/01/17 23:59 07:59 15:59 Intake Total 240 / 240 Output Total 450 / 450 100 / 100 Balance -450 / -450 140 / 140 Intake: Oral 240 / 240 Output: Urine 350 / 350 Catheter 100 / 100 100 / 100 Other: Meal Breakfast Percent of Meal Consumed 100% # Voids 0 Weight 88 kg Patient Weight 12/01/17 23:59 Weight 88 kg - General Appearance General appearance: well-developed, well-nourished EENT: ATNC Neck: supple Respiratory: course breath sounds, rhonchi (scattered rhonchi and frequent coughing.) Cardiology: edema, regular rate Gastrointestinal: no tenderness Integumentary: warm and dry Additional Comments: Alert Slow to answer questions. Deviates from the answered question. Musculoskeletal: no cyanosis Psychiatric: cooperative Results - Lab Results 12/01/17 03:23 12/01/17 03:23 Most recent lab results Calcium 8.6 mg/dL (8.6-10.3) 12/01/17 03:23 Phosphorus 4.4 mg/dL (2.7-4.5) 12/01/17 03:23 Magnesium 1.8 mg/dL (1.6-2.6) 12/01/17 03:23 Consult Discharge Plan - Plan Referrals: Joshua Narvaez, [employer] [Primary Care Provider] -
[2017-12-01 13:57] LABS: Adenovirus Not Detected (Not Detect); Coronavirus 229E Not Detected (Not Detect); Coronavirus HKU1 Not Detected (Not Detect); Coronavirus NL63 Not Detected (Not Detect); Coronavirus OC43 Not Detected (Not Detect); Human Metapneumovirus Not Detected (Not Detect); Human Rhinovirus/Enterovirus Not Detected (Not Detect); Influenza A Subtype 2009 H1 Not Detected (Not Detect)
[2017-12-01 13:58] LABS: Bordetella Pertussis Not Detected (Not Detect); Chlamydophila pneumoniae Not Detected (Not Detect); Influenza A Untypeable Not Detected (Not Detect); Influenza B Not Detected (Not Detect); Mycoplasma pneumoniae Not Detected (Not Detect); Parainfluenza Virus 1 Not Detected (Not Detect); Parainfluenza Virus 2 Not Detected (Not Detect); Parainfluenza Virus 3 Not Detected (Not Detect); Parainfluenza Virus 4 Not Detected (Not Detect); Respiratory Syncytial Virus Not Detected (Not Detect)
--- NOTE | 2017-12-01 14:35 | Internal Med Progress Note ---
Date of Encounter: 12/01/17 Time of Encounter: 14:32 - Assessment and plan (1) Sepsis Current Visit: Yes Status: Acute Assessment and plan: acute hypoxic respiratory failure secondary to sepsis due to Influenza A (H3) and UTI, also due to acute diastolic CHF exacerbation start Tamiflu continue Rocephin IV lasix ( may hold if hypotensive again) CXR showed : bibasilar atelectasis, pulmonary vascular congestion , questionable trace bilateral effusions Qualifiers: Sepsis type: sepsis due to unspecified organism Qualified Code(s): A41.9 - Sepsis, unspecified organism (2) Influenza A Current Visit: Yes Status: Acute Assessment and plan: Tamiflu ( was negative on first screening) (3) Hematuria Current Visit: No Status: Acute Qualifiers: Hematuria type: unspecified type Qualified Code(s): R31.9 - Hematuria, unspecified (4) Catheter-associated urinary tract infection Current Visit: No Status: Acute Assessment and plan: followed by urology keep Reyes Qualifiers: Indwelling urinary catheter type: indwelling urethral catheter Encounter type: initial encounter Qualified Code(s): T83.511A - Infection and inflammatory reaction due to indwelling urethral catheter, initial encounter; N39.0 - Urinary tract infection, site not specified; N39.0 - Urinary tract infection, site not specified (5) Elevated troponin I level Current Visit: No Status: Acute Assessment and plan: Likely secondary to demand ischemia with history of chronically elevated troponins No chest pain (6) Hypotension Current Visit: No Status: Acute Assessment and plan: secondary to sepsis Qualifiers: Hypotension type: other hypotension type Qualified Code(s): I95.89 - Other hypotension (7) Afib Current Visit: Yes Status: Chronic Assessment and plan: Diltiazem, metoprolol warfarin Qualifiers: Atrial fibrillation type: chronic Qualified Code(s): I48.2 - Chronic atrial fibrillation (8) Acute kidney injury superimposed on chronic kidney disease Current Visit: Yes Status: Acute Assessment and plan: acute on chronic renal failure with CKD3 - Subjective Interval history: Confused, short of breath, unable to complete review of systems due to confusion - Constitutional Vitals: Temp Pulse Resp BP Pulse Ox 97.9 F 88 16 110/77 98 12/01/17 10:52 12/01/17 10:52 12/01/17 11:08 12/01/17 10:52 12/01/17 11:08 General appearance: Present: A&O X 2, no acute distress - Head Head exam: Present: atraumatic, normocephalic - Eye Eye exam: Present: PERRL, conjuntiva pink, sclera anicteric Pupils: Present: PERRL - Neck Neck exam general surgery: Present: supple, trachea midline. Absent: lymphadenopathy - Respiratory Respiratory exam: Present: CTAB, rales (Diffuse crackles). Absent: accessory muscle use, rhonchi, wheezes - Cardiovascular Cardiovascular exam: Present: RRR, +S1, +S2. Absent: diastolic murmur, gallop, rubs, systolic murmur - GI/Abdominal GI/Abdominal exam: Present: normal bowel sounds, soft, no peritoneal signs. Absent: distended, tenderness - Extremities Exam Extremities exam: Present: warm, radial pulses palpable and symmetrical. Absent : calf tenderness, cyanotic, pedal edema - Neurological Exam Neurological exam: Present: CN II-XII intact, oriented X3, no focal deficits. Absent: pronater drift, facial droop, speech deficit - Skin Skin exam: Present: dry, intact Internal Medicine: Result - Labs CBC & Chem 7: 12/01/17 03:23 12/01/17 03:23 Labs: Short CBC 12/01/17 Range/Units 03:23 WBC 11.6 H (4.3-11.1) K/mcL Hgb 9.0 L (12.9-16.9) g/dL Hct 30.8 L (37.5-50.1) % Plt Count 223 (140-400) K/mcL Neutrophils # 8.7 (1.6-8.9) K/mcL BMP 12/01/17 03:23 Sodium 140 Potassium 4.6 Chloride 107 Carbon Dioxide 25 BUN 31 H Creatinine 2.19 H Glucose 134 H Calcium 8.6 Cardiac Enzymes 12/01/17 12/01/17 Range/Units 03:23 10:00 Troponin I 0.56 H* 0.41 H* (< 0.04) ng/mL - ABG Interpretation ABG results: PT/INR, D-dimer PT 23.4 Seconds (9.4-12.1) H 12/01/17 03:23 Consult Discharge Plan - Plan Referrals: Joshua Narvaez, [employer]INTENAN[employer] MECH[employer]IC [Primary Care Provider] -
[2017-12-01] MEDS: 0.9 % Sodium Chloride 1,000 ML IVC SCH (17:43)
[2017-12-01] MEDS: Oseltamivir Phosphate 30 MG CAPSULE PO SCH (17:43)
[2017-12-01] MEDS ORDERED: *HR* Warfarin 2.5 MG TABLET PO SCH (18:00)
[2017-12-02] MEDS: Oseltamivir Phosphate 30 MG CAPSULE PO SCH ×3 (03:55→21:25)
[2017-12-02] MEDS: Ipratropium/Albuterol Neb 3 ML IH SCH ×6 (04:39→23:48)
[2017-12-02 05:33] LABS: Hemoglobin 8.5 g/dL (12.9-16.9); Mean Corpuscular HGB Conc 28.3 g/dL (31.6-35.5); Mean Corpuscular Hemoglobin 21.7 pg (28.0-33.3); Mean Corpuscular Volume 76.7 fL (83.0-100.0); Mean Platelet Volume 11.2 fL (9.4-12.4); Platelet Count 188 K/mcL (140-400); Red Blood Count 3.91 M/mcL (4.19-5.50)
[2017-12-02 05:38] LABS: INR 1.8; Prothrombin Time 19.3 Seconds (9.4-12.1)
[2017-12-02 06:17] LABS: Folate 18.7 ng/mL (3.0-16.0)
[2017-12-02 06:52] LABS: Calcium 8.2 mg/dL (8.6-10.3); Potassium 4.3 mEq/L (3.5-5.1)
[2017-12-02 06:53] LABS: % Iron Saturation 4 % (20-55); Ferritin 63 ng/ml (20-250); Iron 11 mcg/dL (65-175); Transferrin 184 mg/dL (203-362)
[2017-12-02] MEDS: cefTRIAXone 1,000 MG in Water for inj. (sterile) 20 ML 10 ML IVP SCH (09:27)
[2017-12-02] MEDS: Diltiazem CD (24hr) 180 MG CAPSULE PO SCH (09:28)
[2017-12-02] MEDS: Multivit/Ca/Min/Fe/FA 1 TAB TABLET PO SCH (09:28)
[2017-12-02] MEDS: GARLIC 100 MG PO SCH (09:29)
[2017-12-02] MEDS: 0.9 % Sodium Chloride 1,000 ML IVC SCH (09:29)
[2017-12-02] MEDS ORDERED: MethylPREDNISolone 40 MG/ML VIAL IVP SCH (13:44)
[2017-12-02] MEDS: CIPROFLOXACIN OPTH RIGHT EYE SCH ×2 (13:45→21:26)
--- NOTE | 2017-12-02 13:50 | Internal Med Progress Note ---
Date of Encounter: 12/02/17 Time of Encounter: 13:48 - Assessment and plan (1) Sepsis Current Visit: Yes Status: Acute Assessment and plan: acute hypoxic respiratory failure secondary to acute COPD exacerbation due to sepsis due to Influenza A (H3) and UTI, also due to acute diastolic CHF exacerbation Tamiflu day 2 start IV solumedrol continue Rocephin day 2 IV lasix ( may hold if hypotensive again) CXR showed : bibasilar atelectasis, pulmonary vascular congestion , questionable trace bilateral effusions Qualifiers: Sepsis type: sepsis due to unspecified organism Qualified Code(s): A41.9 - Sepsis, unspecified organism (2) Influenza A Current Visit: Yes Status: Acute Assessment and plan: Tamiflu ( was negative on first screening) (3) Hematuria Current Visit: No Status: Acute Qualifiers: Hematuria type: unspecified type Qualified Code(s): R31.9 - Hematuria, unspecified (4) Catheter-associated urinary tract infection Current Visit: No Status: Inactive Assessment and plan: followed by urology keep Reyes Qualifiers: Indwelling urinary catheter type: indwelling urethral catheter Encounter type: initial encounter Qualified Code(s): T83.511A - Infection and inflammatory reaction due to indwelling urethral catheter, initial encounter; N39.0 - Urinary tract infection, site not specified; N39.0 - Urinary tract infection, site not specified (5) Elevated troponin I level Current Visit: No Status: Inactive (6) Hypotension Current Visit: No Status: Inactive Assessment and plan: secondary to sepsis Qualifiers: Hypotension type: other hypotension type Qualified Code(s): I95.89 - Other hypotension (7) Afib Current Visit: Yes Status: Chronic Assessment and plan: Diltiazem, metoprolol warfarin Qualifiers: Atrial fibrillation type: chronic Qualified Code(s): I48.2 - Chronic atrial fibrillation (8) Acute kidney injury superimposed on chronic kidney disease Current Visit: Yes Status: Acute Assessment and plan: acute on chronic renal failure with CKD3 Improving of IV fluids, followed by nephrology (9) Conjunctivitis Current Visit: Yes Status: Acute Assessment and plan: Right eye conjunctivitis Ophthalmic ciprofloxacin Qualifiers: Conjunctivitis type: acute Acute conjunctivitis type: bacterial Laterality: right Qualified Code(s): H10.31 - Unspecified acute conjunctivitis , right eye (10) Acute exacerbation of chronic obstructive pulmonary disease (COPD) Current Visit: Yes Status: Acute Assessment and plan: Start Solu-Medrol - Subjective Interval history: Wheezing loudly Confused, short of breath, unable to complete review of systems due to confusion - Constitutional Vitals: Temp Pulse Resp BP Pulse Ox 98.3 F 88 16 109/82 98 12/02/17 11:53 12/02/17 11:53 12/02/17 11:53 12/02/17 11:53 12/02/17 11:53 General appearance: Present: A&O X 2, no acute distress Exam: - Head Head exam: Present: atraumatic, normocephalic - Eye Eye exam: Present: PERRL, conjuntiva pink, sclera anicteric Pupils: Present: PERRL right eye blindness, purulent material on right eye - Neck Neck exam general surgery: Present: supple, trachea midline. Absent: lymphadenopathy - Respiratory Respiratory exam: Present: CTAB, rales (Diffuse crackles). Absent: accessory muscle use, rhonchi, wheezes - Cardiovascular Cardiovascular exam: Present: RRR, +S1, +S2. Absent: diastolic murmur, gallop, rubs, systolic murmur - GI/Abdominal GI/Abdominal exam: Present: normal bowel sounds, soft, no peritoneal signs. Absent: distended, tenderness - Extremities Exam Extremities exam: Present: warm, radial pulses palpable and symmetrical. Absent : calf tenderness, cyanotic, pedal edema - Neurological Exam Neurological exam: Present: CN II-XII intact, oriented X3, no focal deficits. Absent: pronater drift, facial droop, speech deficit - Skin Skin exam: Present: dry, intact Internal Medicine: Result - Labs CBC & Chem 7: 12/02/17 05:05 12/02/17 05:05 Labs: Short CBC 12/02/17 Range/Units 05:05 WBC 6.6 (4.3-11.1) K/mcL Hgb 8.5 L (12.9-16.9) g/dL Hct 30.0 L (37.5-50.1) % Plt Count 188 (140-400) K/mcL BMP 12/02/17 05:05 Sodium 140 Potassium 4.3 Chloride 104 Carbon Dioxide 25 BUN 33 H Creatinine 1.57 H Glucose 91 Calcium 8.2 L - ABG Interpretation ABG results: PT/INR, D-dimer PT 19.3 Seconds (9.4-12.1) H 12/02/17 05:05 Consult Discharge Plan - Plan Referrals: Joshua Narvaez, [facility] [Primary Care Provider] -
[2017-12-02] MEDS: MethylPREDNISolone 40 MG/ML VIAL IVP SCH ×2 (14:30→21:25)
[2017-12-02] MEDS: *HR* Warfarin 2 MG TABLET PO SCH (16:00)
[2017-12-02] MEDS ORDERED: Warfarin perPT PO PRN (18:00)
--- NOTE | 2017-12-02 23:25 | Nephrology Progress Note ---
Date of Encounter: 12/02/17 Time of Encounter: 16:00 - Assessment and Plan (1) Acute kidney injury superimposed on chronic kidney disease Current Visit: Yes Status: Acute Renal function improving. Anticipate recovery. Avoid nephrotoxins. (2) Catheter-associated urinary tract infection Current Visit: Yes Status: Acute Antibiotics per primary team and urology. Qualifiers: Indwelling urinary catheter type: indwelling urethral catheter Encounter type: initial encounter Qualified Code(s): T83.511A - Infection and inflammatory reaction due to indwelling urethral catheter, initial encounter; N39.0 - Urinary tract infection, site not specified; N39.0 - Urinary tract infection, site not specified (3) Anemia Current Visit: Yes Status: Acute Follow hemoglobin Qualifiers: Qualified Code(s): D64.9 - Anemia, unspecified (4) Cough Current Visit: Yes Status: Acute per primary team. Subjective Principal diagnosis: Kenn Interval history: Patient seen. No new complaint. Objective - Vital Signs Vital signs: Vital Signs Temp Pulse Resp BP Pulse Ox 12/02/17 20:00 18 99 12/02/17 19:00 98.2 F 84 22 133/65 93 12/02/17 16:18 98.2 F 74 16 114/61 100 12/02/17 15:52 16 90 12/02/17 11:53 98.3 F 88 16 109/82 98 12/02/17 07:36 16 98 12/02/17 07:11 98.2 F 92 16 111/75 100 12/02/17 04:41 18 99 12/02/17 04:00 98.1 F 106 19 138/71 99 12/02/17 00:00 98.1 F 95 20 121/81 100 12/01/17 23:53 14 100 Intake and Output 12/02/17 12/02/17 12/02/17 07:59 15:59 23:59 Intake Total 0 / 0 1000 / 1000 0 / 0 Output Total 650 / 650 400 / 400 Balance -650 / -650 1000 / 1000 -400 / -400 Intake: IV Fluids 1000 / 1000 0.9 % Sodium Chloride 1,000 ML 1000 / 1000 @ 60 mls/hr IVC .[id number] [facility] Rx #:[id number] Oral 0 / 0 0 / 0 Output: Catheter 650 / 650 400 / 400 Other: Weight 88.9 kg Patient Weight 12/02/17 23:59 Weight 88.9 kg - General Appearance General appearance: Present: well-developed, well-nourished Cardiology: Present: regular rate Integumentary: Present: warm and dry Psychiatric: Present: mood/affect appropriate - Lab 12/02/17 05:05 12/02/17 05:05 Most recent lab results Calcium 8.2 mg/dL (8.6-10.3) L 12/02/17 05:05 Phosphorus 4.4 mg/dL (2.7-4.5) 12/01/17 03:23 Magnesium 1.8 mg/dL (1.6-2.6) 12/01/17 03:23 Consult Discharge Plan - Plan Referrals: Joshua Narvaez, [employer] [Primary Care Provider] -
[2017-12-03] MEDS: Ipratropium/Albuterol Neb 3 ML IH SCH ×6 (03:36→23:38)
[2017-12-03] MEDS: 0.9 % Sodium Chloride 1,000 ML IVC SCH (05:03)
[2017-12-03] MEDS: MethylPREDNISolone 40 MG/ML VIAL IVP SCH ×2 (05:42→17:07)
[2017-12-03 06:08] LABS: INR 1.9; Prothrombin Time 20.7 Seconds (9.4-12.1)
[2017-12-03 06:29] LABS: Hemoglobin 9.2 g/dL (12.9-16.9); Red Cell Distribution Width 16.8 % (11.5-14.5)
[2017-12-03 06:31] LABS: Hematocrit 32.2 % (37.5-50.1); Mean Corpuscular HGB Conc 28.6 g/dL (31.6-35.5); Mean Corpuscular Volume 76.8 fL (83.0-100.0); Mean Platelet Volume 10.9 fL (9.4-12.4); Platelet Count 187 K/mcL (140-400); Red Blood Count 4.19 M/mcL (4.19-5.50)
[2017-12-03 06:33] LABS: BUN/Creatinine Ratio 23 (6-26); Blood Urea Nitrogen 23 mg/dL (8-23); Calcium 8.3 mg/dL (8.6-10.3); Carbon Dioxide 27 mEq/L (23-29); Chloride 105 mEq/L (98-107); Glucose 169 mg/dL (70-105); Osmolality,Calculated 294 (280-300); Potassium 4.5 mEq/L (3.5-5.1); Sodium 138 mEq/L (136-145); eGFR For African Americans > 60 (> 60); eGFR For Non-African Americans > 60 (> 60)
--- NOTE | 2017-12-03 08:00 | Internal Med Progress Note ---
<Ab Gamez - Last Filed: 12/03/17 17:16> Date of Encounter: 12/03/17 Time of Encounter: 08:00 - Assessment and plan (1) Sepsis Current Visit: Yes Status: Resolved Assessment and plan: Sepsis resolved. - Continue treatment of underlying medical conditions and acute illness. Qualifiers: Sepsis type: sepsis due to unspecified organism Qualified Code(s): A41.9 - Sepsis, unspecified organism (2) Catheter-associated urinary tract infection Current Visit: Yes Status: Acute Assessment and plan: Patient presented with catheter associated urinary tract infection, demonstrating improvement on ceftriaxone antibiotic coverage. - Reyes catheter exchanged Plan: - Continue ceftriaxone 1 g every day for a total of 10 days Qualifiers: Indwelling urinary catheter type: indwelling urethral catheter Encounter type: initial encounter Qualified Code(s): T83.511A - Infection and inflammatory reaction due to indwelling urethral catheter, initial encounter; N39.0 - Urinary tract infection, site not specified; N39.0 - Urinary tract infection, site not specified (3) CHF exacerbation Current Visit: Yes Status: Acute Assessment and plan: Clinically demonstrates fluid overload, with pulmonary congestion. Last echocardiogram October 2017, demonstrates LVEF of 55%, mild to moderate concentric left ventricular hypertrophy. Plan: - Gentle diuresis - Low sodium diet, 2 L fluid restrictions - Daily weights - Continue beta zuleyka for rate control Qualifiers: Congestive heart failure type: unspecified Qualified Code(s): I50.9 - Heart failure, unspecified (4) Afib Current Visit: Yes Status: Chronic Assessment and plan: Patient is a known history of atrial fibrillation for which he takes warfarin with his current INR 1.9. - Currently rate controlled continue metoprolol for beta zuleyka coverage and Cardizem 360 CD daily - Continue current anticoagulation with INR goal of 2-3 - Continue personnel monitor Qualifiers: Atrial fibrillation type: chronic Qualified Code(s): I48.2 - Chronic atrial fibrillation (5) Acute kidney injury superimposed on chronic kidney disease Current Visit: Yes Status: Acute Assessment and plan: Patient was admitted with acute on chronic kidney disease in the setting of sepsis with catheter associated urinary tract infection. Sepsis has resolved, patient proving clinically with resolution of his acute kidney injury. - Chronic kidney disease stage III Plan: - Avoid nephrotoxic medications are renally dose antibiotics - Continue to monitor volume status and urinary output. (6) Elevated troponin Current Visit: Yes Status: Acute Assessment and plan: Patient elevated troponins trended down at the time of admission likely secondary to demand ischemia. A repeat troponin was completed this afternoon at 0.12 in the setting of new onset ST depression and inverted T waves in septal and lateral leads. - Cardiology consult placed discussed with cardiology and appreciate recommendations - Continue beta zuleyka, atorvastatin, warfarin therapy and oxygen. No aspirin as patient has a history of throat swelling with aspirin (7) Influenza A Current Visit: Yes Status: Acute Assessment and plan: Tamiflu ( was negative on first screening) (8) Conjunctivitis Current Visit: Yes Status: Acute Assessment and plan: Right eye conjunctivitis Ophthalmic ciprofloxacin Qualifiers: Conjunctivitis type: acute Acute conjunctivitis type: bacterial Laterality: right Qualified Code(s): H10.31 - Unspecified acute conjunctivitis , right eye (9) DVT prophylaxis Current Visit: Yes Status: Acute Assessment and plan: Patient warfarin - Subjective Interval history: Mr. Abreu 82yo Male has been seen and evaluated patient bedside this morning. He is alert awake interactive and in no acute distress. He is not the best medical staff physician but is able to provide basic answers. He denies any nausea, vomiting, diarrhea or constipation overnight. He has been tolerating oral intake and has appropriate output. He denies any chest pain, chest pressure, shortness of breath worse from his baseline or any other acute problems at this time. He states that he is feeling better than when he was admitted. - Constitutional Vitals: Temp Pulse Resp BP Pulse Ox 97.8 F 98 16 135/85 93 12/03/17 06:50 12/03/17 06:50 12/03/17 07:52 12/03/17 06:50 12/03/17 07:52 General appearance: Present: A&O X 2, no acute distress Exam: General: Patient alert, awake, oriented 3, interactive, in no acute distress HEENT: Normocephalic, atraumatic, oral mucosa moist, uvula midline, neck supple trachea midline no palpable lymphadenopathy, no thyromegaly. Chest: Symmetric bilateral correlating with respiratory effort, effort nonlabored. Cardiac: Irregularly irregular heart rate and rhythm,. no bruits appreciated bilateral carotids, Radial pulses 2+ bilateral, posterior tibial and dorsal pedal pulses 2+ bilateral. Respiratory: Diffuse rhonchi appreciated all lung chavez. Abdomen: Soft, nontender, positive bowel sounds, no palpable masses appreciated on examination Extremities: Symmetric bilateral, bilateral lower extremities without erythema or edema patient moving all 4 extremities spontaneously. Neurologic: No focal deficits appreciated on examination. Face symmetric, muscle strength symmetric bilateral upper and lower extremities. Internal Medicine: Result - Labs CBC & Chem 7: 12/03/17 05:44 12/03/17 05:44 Labs: Short CBC 12/03/17 Range/Units 05:44 WBC 2.3 L D (4.3-11.1) K/mcL Hgb 9.2 L (12.9-16.9) g/dL Hct 32.2 L (37.5-50.1) % Plt Count 187 (140-400) K/mcL BMP 12/02/17 12/03/17 05:05 05:44 Sodium 138 Potassium 4.5 Chloride 105 Carbon Dioxide 25 27 BUN 23 Creatinine 0.98 Glucose 169 H Calcium 8.3 L - ABG Interpretation ABG results: PT/INR, D-dimer PT 20.7 Seconds (9.4-12.1) H 12/03/17 05:44 Consult Discharge Plan - Plan Referrals: Joshua Narvaez, EXTERMINATION INSPECTOR [Primary Care Provider] - <Arnav Parker - Last Filed: 12/03/17 18:48> Date of Encounter: 12/03/17 - Assessment and plan (1) Sepsis Current Visit: Yes Status: Resolved Qualifiers: Sepsis type: sepsis due to unspecified organism Qualified Code(s): A41.9 - Sepsis, unspecified organism (2) Catheter-associated urinary tract infection Current Visit: Yes Status: Acute Qualifiers: Indwelling urinary catheter type: indwelling urethral catheter Encounter type: subsequent encounter Qualified Code(s): T83.511D - Infection and inflammatory reaction due to indwelling urethral catheter, subsequent encounter ; N39.0 - Urinary tract infection, site not specified; N39.0 - Urinary tract infection, site not specified (3) CHF exacerbation Current Visit: Yes Status: Acute Qualifiers: Congestive heart failure type: diastolic Qualified Code(s): I50.33 - Acute on chronic diastolic (congestive) heart failure (4) Influenza A Current Visit: Yes Status: Acute (5) Afib Current Visit: Yes Status: Chronic Qualifiers: Atrial fibrillation type: chronic Qualified Code(s): I48.2 - Chronic atrial fibrillation - Constitutional Vitals: Temp Pulse Resp BP Pulse Ox 97.8 F 98 14 151/103 96 12/03/17 11:54 12/03/17 11:54 12/03/17 11:54 12/03/17 11:54 12/03/17 11:54 Internal Medicine: Result - Labs CBC & Chem 7: 12/03/17 05:44 12/03/17 05:44 Labs: Short CBC 12/03/17 Range/Units 05:44 WBC 2.3 L D (4.3-11.1) K/mcL Hgb 9.2 L (12.9-16.9) g/dL Hct 32.2 L (37.5-50.1) % Plt Count 187 (140-400) K/mcL BMP 12/03/17 05:44 Sodium 138 Potassium 4.5 Chloride 105 Carbon Dioxide 27 BUN 23 Creatinine 0.98 Glucose 169 H Calcium 8.3 L Cardiac Enzymes 12/03/17 Range/Units 15:28 Troponin I 0.12 H* (< 0.04) ng/mL - ABG Interpretation ABG results: PT/INR, D-dimer PT 20.7 Seconds (9.4-12.1) H 12/03/17 05:44 - Impressions Impressions Head CT 12/03/17 15:42 IMPRESSION: No acute intracranial abnormality. D/ / Willian Ramos MD / Willian Ramos MD Interpreting Provider: Willian Ramos MD - Attending Attestation I examined this patient and my medical decision-making was reviewed with the Resident Physician on 12/03/17. I agree with the documented findings, disposition and treatment plan as described except to the extent set forth below. Mr Abreu is currently admitted for CAUTI and sepsis. He remains moderate to high risk due to potential for worsening clinical status. Mr Abreu feels OK. No CP or SOB. No cough. Very poor historian. Telemetry showed EKG changes and repeat EKG is markedly changed. Exam Alert Comfortable Mucus membranes dry Heart reg Lungs clear currently Abd soft I/P 1. Abnormal EKG 2. CAUTI - present on admission Further diagnoses and plan as above. Plan card eval, troponin, CT head.
[2017-12-03] MEDS: Diltiazem CD (24hr) 180 MG CAPSULE PO SCH (10:16)
[2017-12-03] MEDS: cefTRIAXone 1,000 MG in Water for inj. (sterile) 20 ML 10 ML IVP SCH (10:18)
[2017-12-03] MEDS: Multivit/Ca/Min/Fe/FA 1 TAB TABLET PO SCH (10:18)
[2017-12-03] MEDS: Oseltamivir Phosphate 30 MG CAPSULE PO SCH ×2 (10:18→20:55)
[2017-12-03] MEDS: CIPROFLOXACIN OPTH RIGHT EYE SCH (10:28)
--- NOTE | 2017-12-03 13:35 | Nephrology Progress Note ---
Date of Encounter: 12/03/17 Time of Encounter: 13:30 - Assessment and Plan (1) Acute kidney injury superimposed on chronic kidney disease Current Visit: Yes Status: Acute Renal function improved to normal. Follow-up with PCP on an outpatient basis. Will sign off. Call with questions or concerns. (2) Catheter-associated urinary tract infection Current Visit: Yes Status: Acute Antibiotics per primary team and urology. Qualifiers: Indwelling urinary catheter type: indwelling urethral catheter Encounter type: initial encounter Qualified Code(s): T83.511A - Infection and inflammatory reaction due to indwelling urethral catheter, initial encounter; N39.0 - Urinary tract infection, site not specified; N39.0 - Urinary tract infection, site not specified (3) Anemia Current Visit: Yes Status: Acute Follow hemoglobin Qualifiers: Qualified Code(s): D64.9 - Anemia, unspecified (4) Cough Current Visit: Yes Status: Acute per primary team. Subjective Principal diagnosis: Kenn Interval history: Patient seen. No new complaint. Objective - Vital Signs Vital signs: Vital Signs Temp Pulse Resp BP Pulse Ox 12/03/17 11:54 97.8 F 98 14 151/103 96 12/03/17 11:19 16 98 12/03/17 07:52 16 93 12/03/17 06:50 97.8 F 98 16 135/85 93 12/03/17 02:19 100 20 135/81 94 12/02/17 23:48 16 96 12/02/17 21:26 96 12/02/17 20:00 18 99 12/02/17 19:00 98.2 F 84 22 133/65 93 12/02/17 16:18 98.2 F 74 16 114/61 100 12/02/17 15:52 16 90 Intake and Output 12/02/17 12/03/17 12/03/17 23:59 07:59 15:59 Intake Total 0 / 0 1000 / 1000 370 / 370 Output Total 400 / 400 550 / 550 Balance -400 / -400 450 / 450 370 / 370 Intake: IV Fluids 1000 / 1000 10 / 10 0.9 % Sodium Chloride 1,000 ML 1000 / 1000 @ 60 mls/hr IVC .[id number] [facility] Rx #:[id number] Rocephin 1,000 MG In Water for inj. (sterile) 10 ML @ 300 mls/ hr IVP DAILY [facility] Rx#:[id number] Oral 0 / 0 0 / 0 360 / 360 Output: Catheter 400 / 400 550 / 550 Other: Meal Breakfast Percent of Meal Consumed 100% Weight 90.5 kg Patient Weight 12/03/17 23:59 Weight 90.5 kg - General Appearance General appearance: Present: well-developed, well-nourished Cardiology: Present: regular rate - Lab 12/03/17 05:44 12/03/17 05:44 Most recent lab results Calcium 8.3 mg/dL (8.6-10.3) L 12/03/17 05:44 Phosphorus 4.4 mg/dL (2.7-4.5) 12/01/17 03:23 Magnesium 1.8 mg/dL (1.6-2.6) 12/01/17 03:23 Consult Discharge Plan - Plan Referrals: Joshua Narvaez, COMBINE INSPECTOR [Primary Care Provider] -
[2017-12-03] MEDS: *HR* Warfarin 2 MG TABLET PO SCH (17:07)
[2017-12-03] MEDS ORDERED: Melatonin 3 MG TABLET PO ONE (20:38)
[2017-12-04] MEDS: MethylPREDNISolone 40 MG/ML VIAL IVP SCH ×4 (00:12→22:42)
[2017-12-04] MEDS: CIPROFLOXACIN OPTH RIGHT EYE SCH ×3 (01:10→23:40)
[2017-12-04 04:20] LABS: Red Blood Count 4.38 M/mcL (4.19-5.50)
[2017-12-04 04:21] LABS: Hematocrit 33.3 % (37.5-50.1); Hemoglobin 9.4 g/dL (12.9-16.9); Mean Corpuscular HGB Conc 28.2 g/dL (31.6-35.5); Mean Corpuscular Hemoglobin 21.5 pg (28.0-33.3); Mean Platelet Volume 11.2 fL (9.4-12.4); Platelet Count 235 K/mcL (140-400); Red Cell Distribution Width 16.6 % (11.5-14.5)
[2017-12-04 04:35] LABS: INR 2.1; Prothrombin Time 22.9 Seconds (9.4-12.1)
[2017-12-04 04:36] LABS: BUN/Creatinine Ratio 28 (6-26); Blood Urea Nitrogen 26 mg/dL (8-23); Calcium 8.7 mg/dL (8.6-10.3); Carbon Dioxide 24 mEq/L (23-29); Chloride 104 mEq/L (98-107); Glucose 155 mg/dL (70-105); Osmolality,Calculated 292 (280-300); Potassium 4.1 mEq/L (3.5-5.1); Sodium 137 mEq/L (136-145); eGFR For African Americans > 60 (> 60); eGFR For Non-African Americans > 60 (> 60)
[2017-12-04] MEDS: Ipratropium/Albuterol Neb 3 ML IH SCH ×6 (04:36→23:30)
[2017-12-04] MEDS ORDERED: Perflutren Lipid Microsphere 1.3 ML in 0.9 % Sodium Chloride 8.7 ML IVP ONE (08:42)
[2017-12-04] MEDS: Diltiazem CD (24hr) 180 MG CAPSULE PO SCH (09:55)
[2017-12-04] MEDS: cefTRIAXone 1,000 MG in Water for inj. (sterile) 20 ML 10 ML IVP SCH (09:56)
[2017-12-04] MEDS: Multivit/Ca/Min/Fe/FA 1 TAB TABLET PO SCH (09:56)
[2017-12-04] MEDS: Oseltamivir Phosphate 30 MG CAPSULE PO SCH ×2 (09:56→22:42)
--- NOTE | 2017-12-04 10:29 | Internal Med Progress Note ---
<LaronmeetonjaAb Lawrence - Last Filed: 12/04/17 10:24> Date of Encounter: 12/04/17 Time of Encounter: 09:00 - Assessment and plan (1) Abnormal EKG Current Visit: Yes Status: Acute Assessment and plan: Patient has ST inversions in septal and lateral leads found yesterday afternoon. Patient is asymptomatic. Troponin taken around the same time was 0.12 which was decreased from previous troponins 2 days prior. Patient continues to be asymptomatic this morning. - Cardiology notified 12/03/2017 and will follow - Continue cardiac monitoring - Repeat troponin this morning - Differential includes potential ischemic event, low likelihood for intracranial bleed, CT of the head was negative for arachnoid bleed at this time , no acute neurologic changes - Awaiting further recommendations from cardiology - Continue beta zuleyka, statin, oxygen as needed. theraputic on warfarin. Patient has an allergy to aspirin (2) Sepsis Current Visit: Yes Status: Resolved Assessment and plan: Sepsis resolved. - Continue treatment of underlying medical conditions and acute illness. Qualifiers: Sepsis type: sepsis due to unspecified organism Qualified Code(s): A41.9 - Sepsis, unspecified organism (3) Catheter-associated urinary tract infection Current Visit: Yes Status: Acute Assessment and plan: Patient presented with catheter associated urinary tract infection, demonstrating improvement on ceftriaxone antibiotic coverage. - Reyes catheter exchanged Plan: - Continue ceftriaxone 1 g every day for a total of 10 days (day 4) Qualifiers: Indwelling urinary catheter type: indwelling urethral catheter Encounter type: subsequent encounter Qualified Code(s): T83.511D - Infection and inflammatory reaction due to indwelling urethral catheter, subsequent encounter ; N39.0 - Urinary tract infection, site not specified; N39.0 - Urinary tract infection, site not specified (4) CHF exacerbation Current Visit: Yes Status: Acute Assessment and plan: Clinically demonstrates fluid overload Last echocardiogram October 2017, demonstrates LVEF of 55%, mild to moderate concentric left ventricular hypertrophy. Plan: - Gentle diuresis - Low sodium diet, 2 L fluid restrictions - Daily weights - Continue beta zuleyka for rate control Qualifiers: Congestive heart failure type: diastolic Qualified Code(s): I50.33 - Acute on chronic diastolic (congestive) heart failure (5) Afib Current Visit: Yes Status: Chronic Assessment and plan: Patient is a known history of atrial fibrillation for which he takes warfarin with his current INR 2.0. - Currently rate controlled continue metoprolol for beta zuleyka coverage and Cardizem 360 CD daily - Continue current anticoagulation with INR goal of 2-3 - Continue radiographer cardiac catheterization Qualifiers: Atrial fibrillation type: chronic Qualified Code(s): I48.2 - Chronic atrial fibrillation (6) Acute kidney injury superimposed on chronic kidney disease Current Visit: Yes Status: Acute Assessment and plan: Patient was admitted with acute on chronic kidney disease in the setting of sepsis with catheter associated urinary tract infection. Sepsis has resolved, patient proving clinically with resolution of his acute kidney injury. - Chronic kidney disease stage III Plan: - Avoid nephrotoxic medications are renally dose antibiotics - Continue to monitor volume status and urinary output. (7) Elevated troponin Current Visit: Yes Status: Acute Assessment and plan: Patient elevated troponins trended down at the time of admission likely secondary to demand ischemia. A repeat troponin was completed this afternoon at 0.12 in the setting of new onset ST depression and inverted T waves in septal and lateral leads. - Cardiology consult placed discussed with cardiology and appreciate recommendations - Continue beta zuleyka, atorvastatin, warfarin therapy and oxygen. No aspirin as patient has a history of throat swelling with aspirin - REPEAT TROPONIN THIS AM. (8) Influenza A Current Visit: Yes Status: Acute Assessment and plan: Tamiflu ( was negative on first screening) (9) Conjunctivitis Current Visit: Yes Status: Acute Assessment and plan: Right eye conjunctivitis Ophthalmic ciprofloxacin Qualifiers: Conjunctivitis type: acute Acute conjunctivitis type: bacterial Laterality: right Qualified Code(s): H10.31 - Unspecified acute conjunctivitis , right eye (10) DVT prophylaxis Current Visit: Yes Status: Acute Assessment and plan: Patient warfarin - Subjective Interval history: Mr. Abreu 82yo Male has been seen and evaluated patient bedside this morning. He is alert awake mildly confused but in note distress. He has a sitter at bedside. He had been hallucinating this morning. He denies any chest pain, chest pressure, lightheadedness dizziness, nausea vomiting diarrhea constipation or any other acute concerns at this time. No acute concerns from nursing staff overnight. - Constitutional Vitals: Temp Pulse Resp BP Pulse Ox 97.8 F 71 16 134/87 94 12/04/17 04:00 12/04/17 07:00 12/04/17 07:34 12/04/17 07:00 12/04/17 07:34 General appearance: Present: A&O X 2, no acute distress Exam: General: Patient alert, awake, interactive, in no acute distress HEENT: Normocephalic, atraumatic, oral mucosa moist, uvula midline, neck supple trachea midline no palpable lymphadenopathy, no thyromegaly. Chest: Symmetric bilateral correlating with respiratory effort, effort nonlabored. Cardiac: Irregularly irregular heart rate and rhythm no bruits appreciated bilateral carotids, Radial pulses 2+ bilateral, posterior tibial and dorsal pedal pulses 2+ bilateral. Respiratory: Clear to auscultation all lung chavez Abdomen: Soft, nontender, positive bowel sounds, no palpable masses appreciated on examination Extremities: Symmetric bilateral, bilateral lower extremities without erythema or edema patient moving all 4 extremities spontaneously. Neurologic: No focal deficits appreciated on examination. Face symmetric, muscle strength symmetric bilateral upper and lower extremities. Internal Medicine: Result - Labs CBC & Chem 7: 12/04/17 03:37 12/04/17 03:37 Labs: Short CBC 12/04/17 Range/Units 03:37 WBC 6.8 D (4.3-11.1) K/mcL Hgb 9.4 L (12.9-16.9) g/dL Hct 33.3 L (37.5-50.1) % Plt Count 235 (140-400) K/mcL BMP 12/04/17 03:37 Sodium 137 Potassium 4.1 Chloride 104 Carbon Dioxide 24 BUN 26 H Creatinine 0.92 Glucose 155 H Calcium 8.7 Cardiac Enzymes 12/03/17 Range/Units 15:28 Troponin I 0.12 H* (< 0.04) ng/mL - ABG Interpretation ABG results: PT/INR, D-dimer PT 22.9 Seconds (9.4-12.1) H 12/04/17 03:37 - Impressions Impressions Head CT 12/03/17 15:42 IMPRESSION: No acute intracranial abnormality. D/ / Willian Ramos MD / Willian Ramos MD Interpreting Provider: Willian Ramos MD Consult Discharge Plan - Plan Referrals: Joshua Narvaez, CHIP SILO TENDER [Primary Care Provider] - <Arnav Parker - Last Filed: 12/04/17 17:23> Date of Encounter: 12/04/17 - Assessment and plan (1) Influenza A Current Visit: Yes Status: Acute (2) Catheter-associated urinary tract infection Current Visit: Yes Status: Acute Qualifiers: Indwelling urinary catheter type: indwelling urethral catheter Encounter type: subsequent encounter Qualified Code(s): T83.511D - Infection and inflammatory reaction due to indwelling urethral catheter, subsequent encounter ; N39.0 - Urinary tract infection, site not specified; N39.0 - Urinary tract infection, site not specified (3) Abnormal EKG Current Visit: Yes Status: Acute (4) CHF exacerbation Current Visit: Yes Status: Acute Qualifiers: Congestive heart failure type: diastolic Qualified Code(s): I50.33 - Acute on chronic diastolic (congestive) heart failure (5) Afib Current Visit: Yes Status: Chronic Qualifiers: Atrial fibrillation type: chronic Qualified Code(s): I48.2 - Chronic atrial fibrillation (6) Sepsis Current Visit: Yes Status: Resolved Qualifiers: Sepsis type: sepsis due to unspecified organism Qualified Code(s): A41.9 - Sepsis, unspecified organism - Constitutional Vitals: Temp Pulse Resp BP Pulse Ox 97.6 F 70 18 125/73 98 12/04/17 15:33 12/04/17 15:33 12/04/17 16:14 12/04/17 15:33 12/04/17 16:14 Internal Medicine: Result - Labs CBC & Chem 7: 12/04/17 03:37 12/04/17 03:37 Labs: Short CBC 12/04/17 Range/Units 03:37 WBC 6.8 D (4.3-11.1) K/mcL Hgb 9.4 L (12.9-16.9) g/dL Hct 33.3 L (37.5-50.1) % Plt Count 235 (140-400) K/mcL BMP 12/04/17 03:37 Sodium 137 Potassium 4.1 Chloride 104 Carbon Dioxide 24 BUN 26 H Creatinine 0.92 Glucose 155 H Calcium 8.7 Cardiac Enzymes 12/04/17 Range/Units 11:46 Troponin I 0.10 H* (< 0.04) ng/mL - ABG Interpretation ABG results: PT/INR, D-dimer PT 22.9 Seconds (9.4-12.1) H 12/04/17 03:37 - Impressions Impressions Echocardiogram Limited Views 12/04/17 15:43 Impressions: LVEF 50%. Mild to moderate concentric left ventricular hypertrophy. Normal right ventricular structure and function. Left Ventricular Wall Motion: Rest Echo Findings All wall segments showed normal motion. Findings: Study Quality * Technically adequate exam. ECG Findings * Atrial fibrillation. Left Ventricle * LVEF 50%. * Mild to moderate concentric left ventricular hypertrophy. Right Ventricle * Normal right ventricular structure and function. IVC * The IVC is not dilated. - Attending Attestation I examined this patient and my medical decision-making was reviewed with the Resident Physician on 12/04/17. I agree with the documented findings, disposition and treatment plan as described except to the extent set forth below. Mr. Abreu is currently admitted for acute on chronic respiratory failure due to influenza and also an acute CAUTI. He remains moderate to high risk due to potential for worsening clinical status He is also in process of work up for new EKG findings. Mr Abreu is up in the chair. He denies CP or dyspnea at this time. Being evaluated by cardiology due to new EKG findings. No fever or chills. Tolerating medications. Exam Alert. Confused to time and place Mucus membranes dry Heart irreg and not tachy Lungs with scattered rhonchi Abd soft I/P 1. Resp failure 2. Influenza 3. Abnormal EKG At this point pt is on 4liter NC (home amount is 2L). Clinically he is improving. Further diagnoses and plan as above.
--- NOTE | 2017-12-04 11:37 | Cardiology Consult Note ---
Date of Encounter: 12/04/17 Time of Encounter: 09:30 Assessment and Plan (1) Influenza A Current Visit: Yes Status: Acute Per cardiology: -Admitted with increased shortness of breath. -Influenza A positive. -Management per primary service. (2) Acute kidney injury superimposed on chronic kidney disease Current Visit: Yes Status: Acute Per cardiology: -RUDDY on admission with creatinine 2.19. -Today creatinine 0.92. -Seen by Nephrology. -Management per primary and nephrology services. (3) Elevated troponin Current Visit: Yes Status: Acute Per cardiology: -Troponins 0.56, 0.41, 0.12 in the setting of RUDDY, influenza, sepsis, UTI. -Denies chest pain does. -Does have acute ECG changes with T wave inversions and ST segment depressions. -On statin, beta zuleyka. Therpeutic on coumadin. -Allergy to ASA. -TTE pending. -Previous TTE 10/2017 with LVEF 55%, mild to moderate concentric LVH, severe bi- atrial enlargement, no signifcant valvular dysfunction, no segmental wall motion abnormalities. -DO not suspect NSTEMI at this time. Medical management for now. -FUrther recommendations pending TTE. -Suspect will need ischemic evaluation due to new ECG changes. (4) Afib Current Visit: Yes Status: Chronic Per cardiology: -Known a.fib. -ON CCB and BB. -HR controlled. -ON coumadin for anticoagulation. -Continue tele. Qualifiers: Atrial fibrillation type: chronic Qualified Code(s): I48.2 - Chronic atrial fibrillation Discussion w patient/family: The assessment and plan as outlined above was discussed with the patient who expressed understanding and agreement. All questions were answered. Thank you for involving us in the care of your patient. Please call with any questions. Discussed and reviewed with . History of Present Illness Consult date: 12/03/17 Requesting physician: Arnav Parker Consult reason: ECG changes Chief complaint: shortness of breath History of present illness: Mr. Abreu is a 82 year old male with a relevant past medical history of atrial fibrillation, renal failure, hematuria. Patient presented to [facility] with complaints of increased shortness of breath. Cardiology has been consulted for ECG changes. Patient denies chest pain. States breathing is "ok" today. Patient is awake and oriented to person and time. Patient unable to state place. Patient denies palpitations or fluttering. Adam active bleeding or blood loss. Past Med Surg Social Fam HX - Past Medical History Attestation: Yes The following information was validated with the patient. Source: patient, old records reviewed Medical history: asthma, atrial fibrillation, renal disease Psychiatric history: no psych history - Past Surgical History Surgical History: no surgical history, other - Social History Smoking Status: Former smoker Smokeless Tobacco Status: No Alcohol use: none Drug use: none - Family History Mother Hx Family Cardiac Disorders: No Hx Family Cancer: No Medications and Allergies Garlic [Odor Free Garlic] 100 mg PO DAILY 10/23/17 [History] Multivit-Min/FA/Lycopen/Lutein [Men 50 Plus Multivitamin Tab] 1 tab PO DAILY 05/04 [History] Vitamin E Acetate [Vitamin E] 400 unit PO DAILY 10/23/17 [History] Albuterol Sulfate [Albuterol Inhaler] 2 puff IH Q4HR PRN inhaler 10/30/17 [Rx] Diltiazem CD (24hr) [Cardizem CD] 360 mg PO DAILY cap.er.24h 10/30/17 [Rx] Sennosides/Docusate Sodium [Senna Plus] 2 each PO BID PRN tablet 10/30/17 [Rx] Warfarin [Coumadin] 2 mg PO 1800 12/02/17 [History] Metoprolol [Lopressor] 100 mg PO DAILY 12/03/17 [History] 3 Allergy/AdvReac Type Severity Reaction Status Date / Time aspirin Allergy Swelling Verified 10/23/17 15:50 of Lip/Tongue/Throat All Systems Review: A 10-system review of systems was performed and is negative for pertinent findings except as documented above in the HPI. - Cardiovascular Cardiovascular: as per HPI, dyspnea at rest, dyspnea on exertion Physical Examination Vital Signs, Last 4 Hours Resp Pulse Ox 12/04/17 11:22 20 98 12/04/17 07:34 16 94 Vital Signs Temperature 97.3 F L 12/01/17 02:43 Pulse Rate 77 12/01/17 02:43 Respiratory Rate 18 12/01/17 02:43 Blood Pressure 96/63 12/01/17 02:43 O2 Sat by Pulse Oximetry 99 12/01/17 02:43 Temperature 97.8 F 12/04/17 04:00 Pulse Rate 71 12/04/17 07:00 Respiratory Rate 20 12/04/17 11:22 Blood Pressure 134/87 12/04/17 07:00 O2 Sat by Pulse Oximetry 98 12/04/17 11:22 General: Conversant, No Apparent Distress HEENT: Atraumatic, Normocephaly, Mucus Membranes Moist Neck: No JVD, Normal carotid pulses Cardiac: Other (Irregularly irregular) Lungs: Other (Expiratory wheezes noted throughout. ) Neuro: Alert and responsive, Other (Oriented to person and time. ) Abdomen: Soft, Non-Tender Skin: No rashes noted on visualized skin Musculoskeletal: No Chest Wall Tenderness Extremities: No Clubbing, No Cyanosis, Normal Pulses, Other (Mild bilateral pedal edema noted, non-pitting. ) Results 12/04/17 03:37 12/04/17 03:37 Lab Results Impressions Head CT 12/03/17 15:42 IMPRESSION: No acute intracranial abnormality. D/ / Willian Ramos MD / Willian Ramos MD Interpreting Provider: Willian Ramos MD Active Medications Albuterol Sulfate (Albuterol Inhaler) 2 puff IH Q4HR PRN PRN Reason: Shortness Of Breath/Wheezing Stop: 06/02/18 03:08 Albuterol/Ipratropium (Duoneb) 3 ml IH [id number] JOSESITO Stop: 06/02/18 03:22 Last Admin: 12/04/17 11:22 Dose: 3 ml Atorvastatin Calcium (Lipitor) 80 mg PO HS JOSESITO Stop: 06/04/18 21:01 Last Admin: 12/03/17 20:55 Dose: 80 mg Ciprofloxacin HCl (Ciloxan Opth Oint) 1 gm RIGHT EYE BID JOSESITO Stop: 06/03/18 13:46 Last Admin: 12/04/17 09:57 Dose: 1 gm Diltiazem HCl (Cardizem Cd) 360 mg PO DAILY [facility] Stop: 06/02/18 09:01 Last Admin: 12/04/17 09:55 Dose: 360 mg Ceftriaxone Sodium 1,000 mg/ (Sterile Water) 10 mls @ 300 mls/hr IVP DAILY [facility] Stop: 06/02/18 09:01 Last Admin: 12/04/17 09:56 Dose: 300 mls/hr Methylprednisolone (Solu-Medrol) 40 mg IVP Q8H JOSESITO Stop: 06/03/18 13:45 Last Admin: 12/04/17 06:33 Dose: 40 mg Metoprolol Tartrate (Lopressor) 75 mg PO BID [facility] Stop: 06/02/18 09:01 Last Admin: 12/04/17 09:56 Dose: 75 mg Multivitamins/Calcium (Thera M Plus) 1 tab PO DAILY [facility] Stop: 06/02/18 09:01 Last Admin: 12/04/17 09:56 Dose: 1 tab Naloxone HCl (Narcan) 0.4 mg IVP Q2MIN PRN PRN Reason: Opioid Reversal Stop: 06/02/18 03:05 Oseltamivir Phosphate (Tamiflu) 30 mg PO BID [facility] Stop: 12/05/17 21:01 Last Admin: 12/04/17 09:56 Dose: 30 mg Senna/Docusate Sodium (Senna Plus) 2 each PO BID PRN; Protocol PRN Reason: Constipation Stop: 06/02/18 03:08 Sodium Bicarbonate (Sodium Bicarbonate) 650 mg PO TID [facility] Stop: 06/02/18 09:01 Last Admin: 12/04/17 09:56 Dose: 650 mg Vitamin E (Vitamin E) 400 unit PO DAILY [facility] Stop: 06/02/18 09:01 Last Admin: 12/04/17 09:56 Dose: 400 unit Warfarin Sodium (Coumadin Perpt) 1 each PO DAILY@1800 PRN PRN Reason: SEE COMMENTS Stop: 06/03/18 18:01 Warfarin Sodium (Coumadin) 2 mg PO 1800 [facility] Stop: 06/02/18 18:01 Last Admin: 12/03/17 17:07 Dose: 2 mg Laboratory Tests 10/23/17 10/30/17 12/01/17 16:17 06:20 03:23 Hgb INR Creatinine 17.42 H 0.99 Troponin I 0.56 H* 12/01/17 12/01/17 12/03/17 03:23 10:00 15:28 Hgb INR Creatinine 2.19 H Troponin I 0.41 H* 0.12 H* 12/04/17 12/04/17 12/04/17 03:37 03:37 03:37 Hgb 9.4 L INR 2.1 Creatinine 0.92 Troponin I - Imaging and Cardiology Chest Xray: report reviewed Echo: pending, report reviewed - EKG Interpretation EKG results cardiology: personally reviewed (ECG with atrial fibrillation, HR 91. ST segment depressions and T wave inversions noted in inferior and lateral leads.), other (Telemetry reviewed with average HR previous 12 hours noted to be 87, atrial fibrillation. PVCs noted.) Consult Discharge Plan - Plan Referrals: Joshua Narvaez, HYBRID CAR MECHANIC [Primary Care Provider] -
--- NOTE | 2017-12-04 13:35 | Electrocardiograph Report ---
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
--- NOTE | 2017-12-04 13:35 | Electrocardiograph Report ---
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
[2017-12-04] MEDS: *HR* Warfarin 2 MG TABLET PO SCH (18:38)
[2017-12-05] MEDS: Ipratropium/Albuterol Neb 3 ML IH SCH ×6 (03:20→23:25)
[2017-12-05 04:46] LABS: Basophils % 0.1 %; Hemoglobin 9.3 g/dL (12.9-16.9)
[2017-12-05 04:47] LABS: Hematocrit 32.3 % (37.5-50.1); Immature Granulocytes % 0.6 % (0-4); Lymphocytes # 0.9 K/mcL (0.6-4.6); Lymphocytes % 11.1 %; Mean Corpuscular HGB Conc 28.8 g/dL (31.6-35.5); Mean Corpuscular Hemoglobin 21.6 pg (28.0-33.3); Mean Corpuscular Volume 75.1 fL (83.0-100.0); Monocytes # 0.2 K/mcL (0.0-1.3); Monocytes % 2.8 %; Platelet Count 201 K/mcL (140-400); Red Cell Distribution Width 16.7 % (11.5-14.5); Segmented Neutrophils % 85.4 %
[2017-12-05 04:52] LABS: Neutrophils # 6.8 K/mcL (1.6-8.9)
[2017-12-05 04:58] LABS: INR 2.4; Prothrombin Time 26.2 Seconds (9.4-12.1)
[2017-12-05 05:11] LABS: Alanine Aminotransferase 29 Units/L (7-52); Albumin 2.9 g/dL (3.5-5.7); Albumin/Globulin Ratio 0.9 (1.1-2.2); Alkaline Phosphatase 55 Units/L (34-104); Aspartate Amino Transferase 39 Units/L (13-39); BUN/Creatinine Ratio 33 (6-26); Bilirubin,Total 0.3 mg/dL (0.3-1.0); Blood Urea Nitrogen 27 mg/dL (8-23); Calcium 8.3 mg/dL (8.6-10.3); Carbon Dioxide 29 mEq/L (23-29); Chloride 105 mEq/L (98-107); Globulin 3.1 g/dL (2.4-3.5); Glucose 148 mg/dL (70-105); Osmolality,Calculated 296 (280-300); Potassium 4.1 mEq/L (3.5-5.1); Sodium 139 mEq/L (136-145); eGFR For African Americans > 60 (> 60); eGFR For Non-African Americans > 60 (> 60)
[2017-12-05 05:16] LABS: Platelet Estimate Normal (Normal); Reactive Lymphocytes Present (Not Present)
[2017-12-05 05:17] LABS: Anisocytosis 1+ (Not Present); Hypochromasia Present (Not Present); Microcytosis Present (Not Present)
[2017-12-05] MEDS: MethylPREDNISolone 40 MG/ML VIAL IVP SCH (05:38)
--- NOTE | 2017-12-05 09:33 | Cardiology Progress Note ---
Date of Encounter: 12/05/17 Time of Encounter: 09:30 Assessment and Plan (1) Influenza A Current Visit: Yes Status: Acute Per cardiology: Admitted with increased shortness of breath. Influenza A positive. Management per primary service. (2) Elevated troponin Current Visit: Yes Status: Acute Per cardiology: Troponins 0.56, 0.41, 0.12 in the setting of RUDDY, influenza, sepsis, UTI. Denies chest pain. Does have acute ECG changes with T wave inversions and ST segment depressions. Echo showed: EF 50%, NSWMA. On statin, beta zuleyka. Has Allergy to ASA. Demand ischemia vs NSTEMI. No cardiac rehab warranted for now. Sees [facility] as outpatient. Discussed with Dr. Reece, need to evaluate for potential LHC d/t ECG changes, however patient currently A&Ox 1, has asa allergy -- apparent angioedema and hives (would need ICU transfer for desensitization), and remains on Coumadin with INR 2.4. Will attempt to discuss with /patient medical management vs potential for asa desensitization, holding coumadin, and possible LHC. Patient is DNR/CCA-- would need temporarily placed on hold for 24 hrs for LHC if were to proceed. (3) Afib Current Visit: Yes Status: Chronic Per cardiology: Known a.fib. On CCB and BB. HR controlled 70's - 80's. On coumadin for anticoagulation. Qualifiers: Atrial fibrillation type: chronic Qualified Code(s): I48.2 - Chronic atrial fibrillation (4) Acute kidney injury superimposed on chronic kidney disease Current Visit: Yes Status: Acute Per cardiology: RUDDY on admission with creatinine 2.19. Seen by Nephrology. Now resolved. Would need to monitor closely if were to undergo LHC. (5) Anemia Current Visit: Yes Status: Acute Per Cardiology: Has apparent underlying anemia per review of records. On Coumadin. Will guaiac stool. If were to have LHC and subsequent stenting, may require triple therapy. Qualifiers: Anemia type: unspecified type Qualified Code(s): D64.9 - Anemia, unspecified Discussion w patient/family: Thank you for involving us in the care of your patient. Please call with any questions. Subjective Principal diagnosis: RUDDY, Influenza A, Mild trop, ECG changes Interval history: Patient seen today with no family at bedside. He is alert to person only. He thought he was in "[place]". He did not know what year it was. He appears to not be having any chest pain, short of breath, palpitations. Objective Vital Signs, Last 4 Hours Temp Pulse Resp BP Pulse Ox 12/05/17 08:31 97.8 F 83 16 132/86 97 12/05/17 07:40 18 95 General: Conversant, No Apparent Distress HEENT: Atraumatic, Normocephaly, Mucus Membranes Moist Neck: No JVD Cardiac: No Murmur, Other (Irregularly irregular) Lungs: Other (Diminished breath sounds to bilateral bases) Neuro: Alert and responsive, Other (A&O x 1) Abdomen: Soft, Non-Tender Skin: No rashes noted on visualized skin Musculoskeletal: No Chest Wall Tenderness Extremities: Other (+1 nonpitting edema bilateral lower extremities, Up oob in chair) Results 12/05/17 04:32 12/05/17 04:32 Lab Results Laboratory Tests 12/01/17 12/01/17 12/01/17 03:23 03:23 03:23 Hgb 9.0 L Hct 30.8 L INR Creatinine 2.19 H Est GFR (Non-Af Amer) 29 L Troponin I 0.56 H* Influenza A (H3) PCR 12/01/17 12/01/17 12/03/17 10:00 12:50 15:28 Hgb Hct INR Creatinine Est GFR (Non-Af Amer) Troponin I 0.41 H* 0.12 H* Influenza A (H3) PCR DETECTED A 12/04/17 12/05/17 12/05/17 11:46 04:32 04:32 Hgb 9.3 L Hct 32.3 L INR 2.4 Creatinine Est GFR (Non-Af Amer) Troponin I 0.10 H* Influenza A (H3) PCR 12/05/17 04:32 Hgb Hct INR Creatinine 0.81 Est GFR (Non-Af Amer) > 60 Troponin I Influenza A (H3) PCR ITS Impressions Head CT 12/03/17 15:42 IMPRESSION: No acute intracranial abnormality. D/ / Willian Ramos MD / Willian Ramos MD Interpreting Provider: Willian Ramos MD Echocardiogram Limited Views 12/04/17 15:43 Impressions: LVEF 50%. Mild to moderate concentric left ventricular hypertrophy. Normal right ventricular structure and function. Left Ventricular Wall Motion: Rest Echo Findings All wall segments showed normal motion. Findings: Study Quality * Technically adequate exam. ECG Findings * Atrial fibrillation. Left Ventricle * LVEF 50%. * Mild to moderate concentric left ventricular hypertrophy. Right Ventricle * Normal right ventricular structure and function. IVC * The IVC is not dilated. Active Medications Albuterol Sulfate (Albuterol Inhaler) 2 puff IH Q4HR PRN PRN Reason: Shortness Of Breath/Wheezing Stop: 06/02/18 03:08 Albuterol/Ipratropium (Duoneb) 3 ml IH [id number] [facility] Stop: 06/02/18 03:22 Last Admin: 12/05/17 07:40 Dose: 3 ml Atorvastatin Calcium (Lipitor) 80 mg PO HS JOSESITO Stop: 06/04/18 21:01 Last Admin: 12/04/17 22:42 Dose: 80 mg Ciprofloxacin HCl (Ciloxan Opth Oint) 1 gm RIGHT EYE BID JOSESITO Stop: 06/03/18 13:46 Last Admin: 12/04/17 23:40 Dose: 1 gm Diltiazem HCl (Cardizem Cd) 360 mg PO DAILY JOSESITO Stop: 06/02/18 09:01 Last Admin: 12/04/17 09:55 Dose: 360 mg Ceftriaxone Sodium 1,000 mg/ (Sterile Water) 10 mls @ 300 mls/hr IVP DAILY JOSESITO Stop: 06/02/18 09:01 Last Admin: 12/04/17 09:56 Dose: 300 mls/hr Methylprednisolone (Solu-Medrol) 40 mg IVP Q8H J[facility]ITO Stop: 06/03/18 13:45 Last Admin: 12/05/17 05:38 Dose: 40 mg Metoprolol Tartrate (Lopressor) 75 mg PO BID JOSESITO Stop: 06/02/18 09:01 Last Admin: 12/04/17 22:42 Dose: 75 mg Multivitamins/Calcium (Thera M Plus) 1 tab PO DAILY JOSESITO Stop: 06/02/18 09:01 Last Admin: 12/04/17 09:56 Dose: 1 tab Naloxone HCl (Narcan) 0.4 mg IVP Q2MIN PRN PRN Reason: Opioid Reversal Stop: 06/02/18 03:05 Oseltamivir Phosphate (Tamiflu) 30 mg PO BID [facility] Stop: 12/05/17 21:01 Last Admin: 12/04/17 22:42 Dose: 30 mg Senna/Docusate Sodium (Senna Plus) 2 each PO BID PRN; Protocol PRN Reason: Constipation Stop: 06/02/18 03:08 Sodium Bicarbonate (Sodium Bicarbonate) 650 mg PO TID JOSESITO Stop: 06/02/18 09:01 Last Admin: 12/04/17 22:41 Dose: 650 mg Vitamin E (Vitamin E) 400 unit PO DAILY [facility] Stop: 06/02/18 09:01 Last Admin: 12/04/17 09:56 Dose: 400 unit Warfarin Sodium (Coumadin Perpt) 1 each PO DAILY@1800 PRN PRN Reason: SEE COMMENTS Stop: 06/03/18 18:01 Warfarin Sodium (Coumadin) 2 mg PO 1800 [facility] Stop: 06/02/18 18:01 Last Admin: 12/04/17 18:38 Dose: 2 mg - Imaging and Cardiology Echo: report reviewed - EKG Interpretation EKG results cardiology: other (Telemetry reviewed shows average heart rate as 12 hours 86, Claribel paulino, currently Claribel paulino in the 70s) Consult Discharge Plan - Plan Referrals: Joshua Narvaez, DEVELOPMENT REPRESENTATIVE [Primary Care Provider] -
[2017-12-05] MEDS: cefTRIAXone 1,000 MG in Water for inj. (sterile) 20 ML 10 ML IVP SCH (09:58)
[2017-12-05] MEDS: Oseltamivir Phosphate 30 MG CAPSULE PO SCH ×2 (09:59→19:58)
[2017-12-05] MEDS: Diltiazem CD (24hr) 180 MG CAPSULE PO SCH (09:59)
[2017-12-05] MEDS: Multivit/Ca/Min/Fe/FA 1 TAB TABLET PO SCH (09:59)
[2017-12-05] MEDS: CIPROFLOXACIN OPTH RIGHT EYE SCH ×2 (10:00→19:58)
--- NOTE | 2017-12-05 13:49 | Event Note ---
Date of Encounter: 12/05/17 Time of Encounter: 13:45 - Cardiology Event Note No family noted at bedside. Discussed and reviewed with Dr. York, recs for medical management for now. Again, patient DNR/CCA, recent RUDDY now improved, mild trop in setting of Influenza A/UTI/Sepsis, CP free, Alert to person only. EF preserved on echo with NSWMA. Cardiology will s/o, re-consult if develops any significant changes, f/u scheduled. can eval in outpatient setting for further ischemic eval.
--- NOTE | 2017-12-05 14:58 | Discharge Summary ---
<Ab Gamez Howard - Last Filed: 12/05/17 14:54> Date of Encounter: 12/05/17 Time of Encounter: 14:54 - Discharge Diagnosis (1) Abnormal EKG Priority: Primary Status: Acute (2) Sepsis Priority: Primary Status: Resolved Qualifiers: Sepsis type: sepsis due to unspecified organism Qualified Code(s): A41.9 - Sepsis, unspecified organism (3) Catheter-associated urinary tract infection Priority: Primary Status: Acute Qualifiers: Indwelling urinary catheter type: indwelling urethral catheter Encounter type: subsequent encounter Qualified Code(s): T83.511D - Infection and inflammatory reaction due to indwelling urethral catheter, subsequent encounter ; N39.0 - Urinary tract infection, site not specified; N39.0 - Urinary tract infection, site not specified (4) CHF exacerbation Priority: Primary Status: Acute Qualifiers: Congestive heart failure type: diastolic Qualified Code(s): I50.33 - Acute on chronic diastolic (congestive) heart failure (5) Afib Priority: Primary Status: Chronic Qualifiers: Atrial fibrillation type: chronic Qualified Code(s): I48.2 - Chronic atrial fibrillation (6) Acute kidney injury superimposed on chronic kidney disease Priority: Primary Status: Resolved (7) Elevated troponin Priority: Primary Status: Acute (8) Influenza A Priority: Primary Status: Acute (9) Conjunctivitis Priority: Secondary Status: Acute Qualifiers: Conjunctivitis type: acute Acute conjunctivitis type: bacterial Laterality: right Qualified Code(s): H10.31 - Unspecified acute conjunctivitis , right eye (10) DVT prophylaxis Priority: Secondary Status: Acute - Discharge Medications Prescriptions: Atorvastatin [Lipitor] 80 mg PO HS 30 Days #60 tablet Ciprofloxacin OPTH Oint [Ciloxan OPTH Oint] 1 gm RIGHT EYE BID 2 Days #1 oint...g. Home Medications: Garlic [Odor Free Garlic] 100 mg PO DAILY 10/23/17 [History] Multivit-Min/FA/Lycopen/Lutein [Men 50 Plus Multivitamin Tab] 1 tab PO DAILY 05/04 [History] Vitamin E Acetate [Vitamin E] 400 unit PO DAILY 10/23/17 [History] Albuterol Sulfate [Albuterol Inhaler] 2 puff IH Q4HR PRN inhaler 10/30/17 [Rx] Diltiazem CD (24hr) [Cardizem CD] 360 mg PO DAILY cap.er.24h 10/30/17 [Rx] Sennosides/Docusate Sodium [Senna Plus] 2 each PO BID PRN tablet 10/30/17 [Rx] Warfarin [Coumadin] 2 mg PO 1800 12/02/17 [History] Metoprolol [Lopressor] 100 mg PO BID 12/03/17 [History] Atorvastatin [Lipitor] 80 mg PO HS 30 Days #60 tablet 12/05/17 [Rx] Ciprofloxacin OPTH Oint [Ciloxan OPTH Oint] 1 gm RIGHT EYE BID 2 Days #1 oint...g. 12/05/17 [Rx] Allergies/Adverse Reactions: 3 Allergy/AdvReac Type Severity Reaction Status Date / Time aspirin Allergy Swelling Verified 10/23/17 15:50 of Lip/Tongue/Throat Procedures/tests Complete & Pending: Procedures Performed prior 72 hours Category Date Time Status CT head/brain wo con [CT] Stat Cat Scan 12/03/17 15:42 Completed ECG 12 lead ECG [ECG] Routine Y 12/03/17 15:11 Completed ECG 12 lead ECG [ECG] Routine Y 12/03/17 15:23 Completed EV limited echocardiogram Routine Y 12/04/17 15:43 Completed Date of admission: 12/01/17 15:14 Primary care physician: Joshua Narvaez CNP Consults: 12/01/17 03:10 Consult to Urology [CONS] Routine Consulting Provider: Urology Kim Reason for Consult: urinary retention, CAUTI Call Completed: No 12/01/17 03:35 Consult to Nephrology [CONS] Routine Consulting Provider: Kidney Kim/BRYN/KIM/NITIN Reason for Consult: RUDDY on CKD Call Completed: No 12/03/17 11:13 Consult to Business Quality Assurance Analyst [CONS] Routine Reason for SW Consult: Possible return to ECF 12/03/17 15:43 Consult to Cardiology [CONS] Routine Comment: Consulting Provider: Cardiology Kim Reason for Consult: Abnormal EKG Time Notified: 15:35 Call Completed: Yes 12/04/17 10:26 Consult to Physical Therapy [CONS] Routine Comment: Evaluate, develop and implement POC Reason for Consult: ADL assessment and home physical capability needs OT [Consult to Occupational Therapy] [CONS] Routine Comment: Evaluate, develop and implement POC Reason for Consult: ADL assessment and home physical capability needs 12/05/17 10:24 Consult to Allergy/Immunology [CONS] Routine Consulting Provider: Allergy Kim Reason for Consult: ASA desensitatization. Call Completed: Yes Discharging clinician: Ab Gamez Anticipated date of discharge: 12/05/17 - Patient Status Disposition: Home, Self-Care Condition: Good Overall status at discharge: patient is back to baseline - Discharge Instructions Instructions: Acute Kidney Injury (DC) Follow Up With: Joshua Narvaez CNP [Primary Care Provider] - Rajan Keys CNP [Advanced Practice Nurse] - Additional Instructions: 1. Follow-up with your primary care provider in the next 3-5 days 2. Take all prescriptions as prescribed, any concerns or questions contact your primary care provider. - Diet and Activity Activity: increase activity as tolerated Diet: diabetic diet, low fat, low cholesterol, low salt diet Interval History: Mr. Abreu is a 82 year old male with PMH Of Afib, CHF, urinary retention, asthma who was transferred from [facility] for further management of sepsis secondary to CAUTI and CHF exacerbation. Pt was discharged from [facility] on with a huang catheter and outpatient follow up was recommended for huang removal. Pt never followed up with urology. He was admitted with influenza A, acute respiratory failure, a CAUTI, acute kidney injury, conjunctivitis of the right eye, upon admission he was placed on ceftriaxone for his urinary tract infection, Tamiflu for his influenza a treatment. Chest x-ray demonstrated bibasilar atelectasis, pulmonary vascular congestion and possible trace bilateral effusions. Urology had seen the patient and remove the indwelling catheter. Nephrology consult and evaluate the patient for his worsening renal function and UTI. 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 On 12/04 he had new onset septal left lateral T-wave inversions. EKG was performed to his placed on atorvastatin 80, beta blockers, aspirin was not given as he has a history of anaphylaxis. Cardiology evaluated the patient and after extensive review decided on medical management. Patient continued to demonstrate improvement with no decline in his symptoms. He seen and evaluated and deemed stable for discharge home, patient also refused any rehabilitation or short-term placement. At the time of discharge she was provided a prescription for his ciprofloxacin eyedrop to treat his conjunctivitis, atorvastatin 80 mg by mouth. Cardiology follow-up was set up prior to discharge. Hospital course: Mr. Abreu is a 82 year old male - Time Spent with Patient Total time spent providing and/or coordinating discharge services: - Constitutional Vitals: Temp Pulse Resp BP Pulse Ox 97.8 F 83 18 132/86 94 12/05/17 08:31 12/05/17 08:31 12/05/17 11:46 12/05/17 08:31 12/05/17 11:46 General appearance: Present: A&O X 2, no acute distress Exam: General: Patient alert, awake, interactive, in no acute distress HEENT: Normocephalic, atraumatic, oral mucosa moist, uvula midline, neck supple trachea midline no palpable lymphadenopathy, no thyromegaly. Chest: Symmetric bilateral correlating with respiratory effort, effort nonlabored. Cardiac: Irregularly irregular heart rate and rhythm no bruits appreciated bilateral carotids, Radial pulses 2+ bilateral, posterior tibial and dorsal pedal pulses 2+ bilateral. Respiratory: Clear to auscultation all lung chavez Abdomen: Soft, nontender, positive bowel sounds, no palpable masses appreciated on examination Extremities: Symmetric bilateral, bilateral lower extremities without erythema or edema patient moving all 4 extremities spontaneously. Neurologic: No focal deficits appreciated on examination. Face symmetric, muscle strength symmetric bilateral upper and lower extremities. <Arnav Parker - Last Filed: 12/05/17 17:57> Date of Encounter: 12/05/17 - Discharge Diagnosis (1) Influenza A Status: Resolved (2) Catheter-associated urinary tract infection Status: Resolved Qualifiers: Indwelling urinary catheter type: indwelling urethral catheter Encounter type: subsequent encounter Qualified Code(s): T83.511D - Infection and inflammatory reaction due to indwelling urethral catheter, subsequent encounter ; N39.0 - Urinary tract infection, site not specified; N39.0 - Urinary tract infection, site not specified (3) Abnormal EKG Status: Chronic (4) CHF exacerbation Status: Resolved Qualifiers: Congestive heart failure type: diastolic Qualified Code(s): I50.33 - Acute on chronic diastolic (congestive) heart failure (5) Afib Status: Chronic Qualifiers: Atrial fibrillation type: chronic Qualified Code(s): I48.2 - Chronic atrial fibrillation (6) Sepsis Status: Resolved Qualifiers: Sepsis type: sepsis due to unspecified organism Qualified Code(s): A41.9 - Sepsis, unspecified organism Procedures/tests Complete & Pending: Procedures Performed prior 72 hours Category Date Time Status CT head/brain wo con [CT] Stat Cat Scan 12/03/17 15:42 Completed ECG 12 lead ECG [ECG] Routine Y 12/03/17 15:11 Completed ECG 12 lead ECG [ECG] Routine Y 12/03/17 15:23 Completed EV limited echocardiogram Routine Y 12/04/17 15:43 Completed Date of admission: 12/01/17 15:14 Primary care physician: Joshua Narvaez CNP Consults: 12/01/17 03:10 Consult to Urology [CONS] Routine Consulting Provider: Urology Kim Reason for Consult: urinary retention, CAUTI Call Completed: No 12/01/17 03:35 Consult to Nephrology [CONS] Routine Consulting Provider: Kidney Kim/BRYN/KIM/NITIN Reason for Consult: RUDDY on CKD Call Completed: No 12/03/17 11:13 Consult to Business Quality Assurance Analyst [CONS] Routine Reason for SW Consult: Possible return to ECF 12/03/17 15:43 Consult to Cardiology [CONS] Routine Comment: Consulting Provider: Cardiology Kim Reason for Consult: Abnormal EKG Time Notified: 15:35 Call Completed: Yes 12/04/17 10:26 Consult to Physical Therapy [CONS] Routine Comment: Evaluate, develop and implement POC Reason for Consult: ADL assessment and home physical capability needs OT [Consult to Occupational Therapy] [CONS] Routine Comment: Evaluate, develop and implement POC Reason for Consult: ADL assessment and home physical capability needs 12/05/17 10:24 Consult to Allergy/Immunology [CONS] Routine Consulting Provider: Allergy Fontana Reason for Consult: ASA desensitatization. Call Completed: Yes Hospital course: Mr. Abreu is a 82 year old male - Time Spent with Patient Total time spent providing and/or coordinating discharge services: 38min - Constitutional Vitals: Temp Pulse Resp BP Pulse Ox 97.8 F 83 18 132/86 95 12/05/17 08:31 12/05/17 08:31 12/05/17 16:10 12/05/17 08:31 12/05/17 16:10 - Attending Attestation I examined this patient and my medical decision-making was reviewed with the Resident Physician on 12/05/17. I agree with the documented findings, disposition and treatment plan as described except to the extent set forth below. Mr Abreu has been admitted for acute influenza and CAUTI. He is now afebrile with stable vitals. He has some residual chest congestion but overall his pulmonary status has improved. He is ready for discharge home. Exam Alert to self. Comfortable Mucus membranes dry Heart not tachy currently Lungs with upper airway rhonchi Abd soft and nontender Plan D/C home with outpatient follow up with PCP and cardiology Medical management of cardiac disease per cardiology
[2017-12-05] MEDS ORDERED: *HR* Warfarin 1 MG TABLET PO ONE (18:00)
[2017-12-06] MEDS: Ipratropium/Albuterol Neb 3 ML IH SCH ×4 (03:08→15:41)
[2017-12-06 03:53] LABS: INR 2.4; Prothrombin Time 25.9 Seconds (9.4-12.1)
[2017-12-06 06:23] VITALS: BP 159/70
[2017-12-06] MEDS: Multivit/Ca/Min/Fe/FA 1 TAB TABLET PO SCH (09:40)
[2017-12-06] MEDS: Diltiazem CD (24hr) 180 MG CAPSULE PO SCH (09:40)
--- NOTE | 2017-12-06 16:45 | Internal Med Progress Note ---
<Ab Gamez - Last Filed: 12/06/17 16:45> Date of Encounter: 12/06/17 Time of Encounter: 08:30 - Assessment and plan (1) Abnormal EKG Status: Chronic Assessment and plan: Patient has ST inversions in septal and lateral leads found yesterday afternoon. Patient is asymptomatic. Troponin taken around the same time was 0.12 which was decreased from previous troponins 2 days prior. Patient continues to be asymptomatic this morning. - Follow up with cardiology outpatient. (2) Sepsis Status: Resolved Assessment and plan: Sepsis resolved. - Continue treatment of underlying medical conditions and acute illness. Qualifiers: Sepsis type: sepsis due to unspecified organism Qualified Code(s): A41.9 - Sepsis, unspecified organism (3) Catheter-associated urinary tract infection Status: Resolved Assessment and plan: Patient presented with catheter associated urinary tract infection, demonstrating improvement on ceftriaxone antibiotic coverage. - Reyes catheter exchanged Plan: - resolved Qualifiers: Indwelling urinary catheter type: indwelling urethral catheter Encounter type: subsequent encounter Qualified Code(s): T83.511D - Infection and inflammatory reaction due to indwelling urethral catheter, subsequent encounter ; N39.0 - Urinary tract infection, site not specified; N39.0 - Urinary tract infection, site not specified (4) CHF exacerbation Status: Resolved Assessment and plan: Clinically demonstrates fluid overload Last echocardiogram October 2017, demonstrates LVEF of 55%, mild to moderate concentric left ventricular hypertrophy. Plan: - Low sodium diet, 2 L fluid restrictions - Daily weights - Continue beta zuleyka for rate control Qualifiers: Congestive heart failure type: diastolic Qualified Code(s): I50.33 - Acute on chronic diastolic (congestive) heart failure (5) Afib Status: Chronic Assessment and plan: Patient is a known history of atrial fibrillation for which he takes warfarin with his current INR 2.0. - Currently rate controlled continue metoprolol for beta zuleyka coverage and Cardizem 360 CD daily - Continue current anticoagulation with INR goal of 2-3 - Continue cardiac surgeon Qualifiers: Atrial fibrillation type: chronic Qualified Code(s): I48.2 - Chronic atrial fibrillation (6) Acute kidney injury superimposed on chronic kidney disease Status: Resolved Assessment and plan: Patient was admitted with acute on chronic kidney disease in the setting of sepsis with catheter associated urinary tract infection. Sepsis has resolved, patient proving clinically with resolution of his acute kidney injury. - Chronic kidney disease stage III Plan: - Avoid nephrotoxic medications are renally dose antibiotics - Continue to monitor volume status and urinary output. (7) Elevated troponin Status: Acute Assessment and plan: Patient elevated troponins trended down at the time of admission likely secondary to demand ischemia. A repeat troponin was completed this afternoon at 0.12 in the setting of new onset ST depression and inverted T waves in septal and lateral leads. - management per cardiology. (8) Influenza A Status: Resolved Assessment and plan: Tamiflu ( was negative on first screening) (9) Conjunctivitis Status: Acute Assessment and plan: Right eye conjunctivitis Ophthalmic ciprofloxacin Qualifiers: Conjunctivitis type: acute Acute conjunctivitis type: bacterial Laterality: right Qualified Code(s): H10.31 - Unspecified acute conjunctivitis , right eye (10) DVT prophylaxis Status: Acute Assessment and plan: Patient warfarin - Subjective Interval history: Mr. Abreu 82yo Male has been seen and evaluated patient bedside this morning. He is alert awake and interactive this morning. He states that he is doing well over night, no new complaints or concerns at this time. Awaiting his transportation home. - Constitutional Vitals: Temp Pulse Resp BP Pulse Ox 97 F L 80 17 159/70 97 12/06/17 06:18 12/06/17 06:18 12/06/17 15:42 12/06/17 06:18 12/06/17 15:42 General appearance: Present: A&O X 2, no acute distress Exam: General: Patient alert, awake, interactive, in no acute distress HEENT: Normocephalic, atraumatic, oral mucosa moist, uvula midline, neck supple trachea midline no palpable lymphadenopathy, no thyromegaly. Chest: Symmetric bilateral correlating with respiratory effort, effort nonlabored. Cardiac: Irregularly irregular heart rate and rhythm no bruits appreciated bilateral carotids, Radial pulses 2+ bilateral, posterior tibial and dorsal pedal pulses 2+ bilateral. Respiratory: Clear to auscultation all lung chavez Abdomen: Soft, nontender, positive bowel sounds, no palpable masses appreciated on examination Extremities: Symmetric bilateral, bilateral lower extremities without erythema or edema patient moving all 4 extremities spontaneously. Neurologic: No focal deficits appreciated on examination. Face symmetric, muscle strength symmetric bilateral upper and lower extremities. Internal Medicine: Result - Labs CBC & Chem 7: 12/05/17 04:32 12/05/17 04:32 - ABG Interpretation ABG results: PT/INR, D-dimer PT 25.9 Seconds (9.4-12.1) H 12/06/17 03:21 Consult Discharge Plan - Plan Instructions: Warfarin (By mouth), Atorvastatin (By mouth), Ciprofloxacin ( Into the eye), Heart Failure (DC), Atrial Fibrillation (DC), Acute Kidney Injury (DC), Urinary Tract Infection in Men (DC), Sepsis (DC) Additional Instructions: 1. Follow-up with your primary care provider in the next 3-5 days 2. Take all prescriptions as prescribed, any concerns or questions contact your primary care provider. Referrals: Rajan Keys CNP [Advanced Practice Nurse] - (office will call patient at home with appointment date and time) Joshua Narvaez CNP [Primary Care Provider] - 12/12/17 4:20 pm Amos Griffith MD [Partnered Physician] - 12/23/17 2:30 pm Prescriptions: Albuterol Sulfate [Albuterol Inhaler] 2 puff IH Q4HR PRN 30 Days #1 inhaler PRN Reason: Shortness Of Breath/Wheezing Atorvastatin [Lipitor] 80 mg PO HS 30 Days #60 tablet Ciprofloxacin OPTH Oint [Ciloxan OPTH Oint] 1 gm RIGHT EYE BID 2 Days #1 oint...g. <Arnav Parker - Last Filed: 12/06/17 17:03> Date of Encounter: 12/06/17 - Assessment and plan (1) Influenza A Status: Resolved (2) Catheter-associated urinary tract infection Status: Resolved Qualifiers: Indwelling urinary catheter type: indwelling urethral catheter Encounter type: subsequent encounter Qualified Code(s): T83.511D - Infection and inflammatory reaction due to indwelling urethral catheter, subsequent encounter ; N39.0 - Urinary tract infection, site not specified; N39.0 - Urinary tract infection, site not specified (3) Abnormal EKG Status: Chronic (4) CHF exacerbation Status: Resolved Qualifiers: Congestive heart failure type: diastolic Qualified Code(s): I50.33 - Acute on chronic diastolic (congestive) heart failure (5) Afib Status: Chronic Qualifiers: Atrial fibrillation type: chronic Qualified Code(s): I48.2 - Chronic atrial fibrillation (6) Sepsis Status: Resolved Qualifiers: Sepsis type: sepsis due to unspecified organism Qualified Code(s): A41.9 - Sepsis, unspecified organism - Constitutional Vitals: Temp Pulse Resp BP Pulse Ox 97 F L 80 17 159/70 97 12/06/17 06:18 12/06/17 06:18 12/06/17 15:42 12/06/17 06:18 12/06/17 15:42 Internal Medicine: Result - Labs CBC & Chem 7: 12/05/17 04:32 12/05/17 04:32 - ABG Interpretation ABG results: PT/INR, D-dimer PT 25.9 Seconds (9.4-12.1) H 12/06/17 03:21 - Attending Attestation I examined this patient and my medical decision-making was reviewed with the Resident Physician on 12/06/17. I agree with the documented findings, disposition and treatment plan as described except to the extent set forth below. Mr Abreu has been admitted for acute influenza A and CAUTI. Mr Abreu was discharged yesterday but no one at his home answered phone to come get him. Today his is to come pick him up. No CP or SOB. No fever or chills. Feels ready to go home. Exam Alert. Comfortable Mucus membranes dry Heart irreg Lungs with few rhonchi I/P 1. Influenza resolved 2. CAUTI resolved - catheter has been changed this admit Further diagnoses and plan as above. D/C home.
[2017-12-06] MEDS ORDERED: *HR* Warfarin 2 MG TABLET PO SCH (18:00)
== END 2017-12-06 16:25 | disposition home or self-care (01) | DRG 698 ==
LOC: 2NENU → SUATTDRO 02:08 → 2NENU 12-03 15:41
PROVIDERS: ADMIT Internal Medicine; ATTEND Internal Medicine

== ENCOUNTER 2017-12-27 17:02 | Inpatient (IN) ==
[2017-12-27] MEDS ORDERED: Sennosides/Docusate Sodium TABLET PO PRN (22:33)
[2017-12-27] MEDS ORDERED: Naloxone 0.4 MG/ML INJ IVP PRN (22:41)
--- NOTE | 2017-12-27 22:48 | Internal Med History&Physical ---
<Valentin Baez J - Last Filed: 12/27/17 22:44> Date of Encounter: 12/27/17 Time of Encounter: 22:44 Assessment and Plan (1) Acute kidney injury superimposed on chronic kidney disease Current visit: Yes Status: Resolved RUDDY secondary to acute urinary retention. He has had multiple episodes in the past. Additionally he has also required a chronic huang catheter but it is unclear as to why. He follows with Urology who recently (5-days ago) removed the huang catheter. H/O CKD III, unclear who he follow with however, he saw Dr. Ko upon his last admission -Huang catheter in place -IVF -avoid nephrotoxins -consult nephrology-days team to call -consult urology- days team to call (2) Acute metabolic encephalopathy Current visit: Yes Status: Acute (3) Acute retention of urine Current visit: Yes Status: Acute Huang catheter in place and draining dark urine, strict I&O (4) Asthma Current visit: Yes Status: Acute stable Qualifiers: Asthma severity: unspecified severity Asthma persistence: unspecified Asthma complication type: unspecified Qualified Code(s): J45.909 - Unspecified asthma, uncomplicated (5) Afib Current visit: Yes Status: Acute stable, continuous tele, continue coumadin Qualifiers: Atrial fibrillation type: chronic Qualified Code(s): I48.2 - Chronic atrial fibrillation (6) DVT prophylaxis Current visit: Yes Status: Acute coumadin Internal Medicine - H&P: HPI Chief complaint: Urinary retention Admitted From: Home Plans for Post Hospital Care: Home History of present illness: Mr. Abreu is a 82 year old male with a PMH of the CKD stage III, asthma and A. fib. He presents to [facility] today from [facility] with acute on chronic kidney injury secondary to urinary retention. All information obtained from chart review as the patient is confused and unable to participate in the examination. Per review of the charts the patient has had a chronic indwelling Huang catheter however as to why it is currently unclear. He is being followed by urology. He was admitted in November and treated for urinary tract infection secondary to indwelling Huang catheter. At that time the catheter was swapped out and he was sent home following antibiotic treatment. Per report The patient 's Huang catheter was removed approximately 5 days ago by urology. Since that time he has had a decrease in urinary output. Appears he has been experiencing lower abdominal pain nausea and vomiting as well. If catheter was placed and returned 800 mL of dark urine. Urinalysis negative for UTI. Past Med Surg Social Fam HX - Past Medical History Medical history: asthma, atrial fibrillation, renal disease Psychiatric history: no psych history - Past Surgical History Surgical History: no surgical history, other - Social History Smoking Status: Former smoker Smokeless Tobacco Status: No Alcohol use: none Drug use: none - Family History Mother Hx Family Cardiac Disorders: No Hx Family Cancer: No Internal Medicine - H&P: Meds Multivit-Min/FA/Lycopen/Lutein [Men 50 Plus Multivitamin Tab] 1 tab PO DAILY 05/04 [History] Vitamin E Acetate [Vitamin E] 400 unit PO DAILY 10/23/17 [History] Diltiazem CD (24hr) [Cardizem CD] 360 mg PO DAILY cap.er.24h 10/30/17 [Rx] Sennosides/Docusate Sodium [Senna Plus] 2 each PO BID PRN tablet 10/30/17 [Rx] Warfarin [Coumadin] 2 mg PO 1800 12/02/17 [History] Metoprolol [Lopressor] 100 mg PO BID 12/03/17 [History] Atorvastatin [Lipitor] 80 mg PO HS 30 Days #60 tablet 12/05/17 [Rx] Ciprofloxacin OPTH Oint [Ciloxan OPTH Oint] 1 gm RIGHT EYE BID 2 Days #1 oint...g. 12/05/17 [Rx] 3 Allergy/AdvReac Type Severity Reaction Status Date / Time aspirin Allergy Swelling Verified 10/23/17 15:50 of Lip/Tongue/Throat ROS unobtainable: due to mental status All Systems PM: A 10-system review of systems was performed and is negative for pertinent findings except as documented above in the HPI. - Constitutional Vitals: Temp Pulse Resp BP Pulse Ox 97.3 F L 84 17 111/74 95 12/27/17 18:55 12/27/17 18:55 12/27/17 18:55 12/27/17 18:55 12/27/17 18:55 General appearance: Present: A&O X 1 Exam: Unable to answer questions due to confusion - Head Head exam: Present: atraumatic, normocephalic - Eye Eye exam: Present: PERRL, conjuntiva pink, sclera anicteric Pupils: Present: PERRL - Respiratory Respiratory exam: Present: CTAB. Absent: accessory muscle use, rales, rhonchi, wheezes - Cardiovascular Cardiovascular exam: Present: RRR, +S1, +S2. Absent: diastolic murmur, gallop, rubs, systolic murmur - GI/Abdominal GI/Abdominal exam: Present: normal bowel sounds, soft, no peritoneal signs. Absent: distended, tenderness - Extremities Exam Extremities exam: Present: warm, radial pulses palpable and symmetrical. Absent : calf tenderness, cyanotic, pedal edema - Neurological Exam Neurological exam: Present: alert. Absent: oriented X3, facial droop, speech deficit - Skin Skin exam: Present: dry, intact - VTE Reasons for not Prescribing Prophylaxis: Medical contraindication <Johnnie Morgan - Last Filed: 12/28/17 06:40> Date of Encounter: 12/27/17 Internal Medicine - H&P: HPI History of present illness: Mr. Abreu is a 82 year old male All Systems PM: A 10-system review of systems was performed and is negative for pertinent findings except as documented above in the HPI. - Constitutional Vitals: Temp Pulse Resp BP Pulse Ox 97.5 F L 76 17 119/83 97 12/28/17 04:05 12/28/17 04:05 12/28/17 04:05 12/28/17 04:05 12/28/17 04:05 - Attending Attestation I have personally performed a face to face evaluation on this patient. I have reviewed and agree with the care plan provided by RADHA Baez. History and Exam by me shows: Mr. Abreu is a 82 year old male with a PMH of the CKD stage III, asthma and A. fib. He presents to [facility] today from [facility] with acute on chronic kidney injury secondary to urinary retention. Pt is alert, awake, and oriented to self only.. He looks very confused.. Unable to provide me any history Gen: A,A, O x 1 Chest: Diminished BS b/l Heart S1S2+ a/p 1. RUDDY with CKD-3 due to urinary retention 2. Obstructive uropathy 3. Acute metabolic encephalopathy IV hydration Huang cath + Urology and Nephro consulted
[2017-12-28] MEDS: 0.9 % Sodium Chloride 1,000 ML IVC SCH ×2 (00:19→16:52)
[2017-12-28 06:43] LABS: Hemoglobin 9.3 g/dL (12.9-16.9)
[2017-12-28 06:44] LABS: Mean Corpuscular Hemoglobin 22.9 pg (28.0-33.3); Mean Corpuscular Volume 76.2 fL (83.0-100.0); Mean Platelet Volume 11.6 fL (9.4-12.4); Platelet Count 178 K/mcL (140-400); Red Blood Count 4.07 M/mcL (4.19-5.50); Red Cell Distribution Width 19.4 % (11.5-14.5)
[2017-12-28 06:49] LABS: Calcium 8.3 mg/dL (8.6-10.3); Potassium 3.9 mEq/L (3.5-5.1)
[2017-12-28 07:39] LABS: INR 1.3; Prothrombin Time 14.6 Seconds (9.4-12.1)
--- NOTE | 2017-12-28 08:20 | Urology - Consult Note ---
Date of Encounter: 12/28/17 Time of Encounter: 08:18 - Assessment and Plan (1) Urinary retention Current Visit: Yes Status: Acute Assessment and plan: Patient's catheter is draining well at this time. Patient has now failed one voiding trial as an outpatient. Recommend to keep his catheter in place at this time. Follow-up can be made to Dr. Griffith in the next 1-2 weeks for discussion of another voiding trial or continuation of indwelling urethral catheter. Unsure if patient would be a candidate for intermittent catheterization secondary to age and mental status. (2) Acute renal failure Current Visit: No Status: Acute Assessment and plan: We will continue to follow along for the patient's slightly elevated serum creatinine. I expected the serum creatinine will slowly improve now that the patient's bladder is fully drained. Qualifiers: Acute renal failure type: unspecified Qualified Code(s): N17.9 - Acute kidney failure, unspecified Urology CN:[facility] Consult date: 12/28/17 Reason for consult Urology: Other (urinary retention) Requesting physician: Johnnie Morgan History of present illness: Arron is a 82-year-old male known to the urology service for prior consultation for urinary retention and hematuria. Patient had catheter removal last week in the urology office. He was unable to void and a catheter was placed last evening. He is also found to have an elevated serum creatinine. Patient still seems somewhat confused this morning. Past Med Surg Social Fam HX - Past Medical History Medical history: asthma, atrial fibrillation, renal disease Psychiatric history: no psych history - Past Surgical History Surgical History: no surgical history, other - Social History Smoking Status: Former smoker Smokeless Tobacco Status: No Alcohol use: none Drug use: none - Family History Mother Hx Family Cardiac Disorders: No Hx Family Cancer: No Medications and Allergies Multivit-Min/FA/Lycopen/Lutein [Men 50 Plus Multivitamin Tab] 1 tab PO DAILY 05/04 [History] Vitamin E Acetate [Vitamin E] 400 unit PO DAILY 10/23/17 [History] Diltiazem CD (24hr) [Cardizem CD] 360 mg PO DAILY cap.er.24h 10/30/17 [Rx] Sennosides/Docusate Sodium [Senna Plus] 2 each PO BID PRN tablet 10/30/17 [Rx] Warfarin [Coumadin] 2 mg PO 1800 12/02/17 [History] Metoprolol [Lopressor] 100 mg PO BID 12/03/17 [History] Atorvastatin [Lipitor] 80 mg PO HS 30 Days #60 tablet 12/05/17 [Rx] Ciprofloxacin OPTH Oint [Ciloxan OPTH Oint] 1 gm RIGHT EYE BID 2 Days #1 oint...g. 12/05/17 [Rx] 3 Allergy/AdvReac Type Severity Reaction Status Date / Time aspirin Allergy Swelling Verified 10/23/17 15:50 of Lip/Tongue/Throat Review of Systems ROS unobtainable: due to mental status Exam Initial Vital Signs Temp Pulse Resp BP Pulse Ox 97.3 F L 84 17 111/74 95 12/27/17 18:55 12/27/17 18:55 12/27/17 18:55 12/27/17 18:55 12/27/17 18:55 - General physical appearance Present: well developed, no distress - Eyes Absent: icteric - Neck Absent: no lymphadenopathy - Respiratory Present: normal respiratory effort - Cardiovascular Cardiovascular exam IM: RRR - Abdomen Abdomen: Present: soft - Genitourinary other (Clear urine in catheter) - Integumentary Present: no abnormal pigmentation. Absent: lesions - Neurologic Present: confused Urology Results - Labs 12/28/17 05:38 12/28/17 05:38 Abnormal lab results RBC 4.07 M/mcL (4.19-5.50) L 12/28/17 05:38 Hgb 9.3 g/dL (12.9-16.9) L 12/28/17 05:38 Hct 31.0 % (37.5-50.1) L 12/28/17 05:38 MCV 76.2 fL (83.0-100.0) L 12/28/17 05:38 MCH 22.9 pg (28.0-33.3) L 12/28/17 05:38 MCHC 30.0 g/dL (31.6-35.5) L 12/28/17 05:38 RDW 19.4 % (11.5-14.5) H 12/28/17 05:38 PT 14.6 Seconds (9.4-12.1) H 12/28/17 07:22 Chloride 108 mEq/L (98-107) H 12/28/17 05:38 BUN 42 mg/dL (8-23) H 12/28/17 05:38 Creatinine 2.12 mg/dL (0.70-1.30) H 12/28/17 05:38 Est GFR ( Amer) 37 (> 60) L 12/28/17 05:38 Est GFR (Non-Af Amer) 30 (> 60) L 12/28/17 05:38 Calcium 8.3 mg/dL (8.6-10.3) L 12/28/17 05:38 Diabetes panel 12/28/17 Range/Units 05:38 Sodium 140 (136-145) mEq/L Potassium 3.9 (3.5-5.1) mEq/L Chloride 108 H (98-107) mEq/L Carbon Dioxide 24 (23-29) mEq/L BUN 42 H (8-23) mg/dL Creatinine 2.12 H (0.70-1.30) mg/dL Glucose 78 (70-105) mg/dL Calcium 8.3 L (8.6-10.3) mg/dL Calcium panel 12/28/17 Range/Units 05:38 Calcium 8.3 L (8.6-10.3) mg/dL Pituitary panel 12/28/17 Range/Units 05:38 Sodium 140 (136-145) mEq/L Potassium 3.9 (3.5-5.1) mEq/L Chloride 108 H (98-107) mEq/L Carbon Dioxide 24 (23-29) mEq/L BUN 42 H (8-23) mg/dL Creatinine 2.12 H (0.70-1.30) mg/dL Glucose 78 (70-105) mg/dL Calcium 8.3 L (8.6-10.3) mg/dL Adrenal panel 12/28/17 Range/Units 05:38 Sodium 140 (136-145) mEq/L Potassium 3.9 (3.5-5.1) mEq/L Chloride 108 H (98-107) mEq/L Carbon Dioxide 24 (23-29) mEq/L BUN 42 H (8-23) mg/dL Creatinine 2.12 H (0.70-1.30) mg/dL Glucose 78 (70-105) mg/dL Calcium 8.3 L (8.6-10.3) mg/dL All other labs normal. Consult Discharge Plan - Plan Referrals: Joshua Narvaez, ADIA [Primary Care Provider] -
[2017-12-28] MEDS: Multivit/Ca/Min/Fe/FA 1 TAB TABLET PO SCH (09:47)
[2017-12-28] MEDS: Metoprolol 100 MG TABLET PO SCH ×2 (09:48→20:57)
[2017-12-28] MEDS: Diltiazem CD (24hr) 180 MG CAPSULE PO SCH (09:48)
--- NOTE | 2017-12-28 10:08 | Nephrology Consult Note ---
Date of Encounter: 12/28/17 Time of Encounter: 09:25 Assessment and Plan (1) Acute renal failure Current Visit: No Status: Acute Most likely post-renal and now that the huang was placed, I suspect his SCr will continue to improve. Continue IVF as well. Meanwhile he has no urgent indications for [employer] FINISHED, but I recommend following a renal protective strategy: avoid NSAIDs, and other nephrotoxins such as IV contrast and Bactrim as able Thank you for consulting the [facility]. Will follow with you. Qualifiers: Acute renal failure type: unspecified Qualified Code(s): N17.9 - Acute kidney failure, unspecified (2) Urinary retention Current Visit: Yes Status: Acute Appreciate Urology History of Present Illness - Reason for Consult Consult date: 12/28/17 Acute Kidney Injury Requesting physician: Rebecca Moise - Chief Complaint RUDDY - History of Present Illness Arron Abreu is a very pleasant 82 y/o WM with a pmh of HTN, BPH, prior AKIs, right eye blindness and et al who presented another episode of urinary retention and RUDDY via the [facility]. Urology has already seen him and placed a huang and recommended he keep this in place. He previously established with the [facility] in the past. He reported some nausea but V/D/F/C or ShOB or CP. He denied OTC NSAIDS. He denied having a recent LHC or CT with IV contrast. He denied feeling bloated in his abd, but by this point, he already had a huang catheter in place. He said that he had damaged his right eye many years ago. FHx: he denied having other first degree relatives with ESRD. Past Med Surg Social Fam HX - Past Medical History Medical history: asthma, atrial fibrillation, renal disease Psychiatric history: no psych history - Past Surgical History Surgical History: no surgical history, other - Social History Smoking Status: Former smoker Smokeless Tobacco Status: No Alcohol use: none Drug use: none - Family History Mother Hx Family Cardiac Disorders: No Hx Family Cancer: No Medications and Allergies Multivit-Min/FA/Lycopen/Lutein [Men 50 Plus Multivitamin Tab] 1 tab PO DAILY 05/04 [History] Vitamin E Acetate [Vitamin E] 400 unit PO DAILY 10/23/17 [History] Diltiazem CD (24hr) [Cardizem CD] 360 mg PO DAILY cap.er.24h 10/30/17 [Rx] Sennosides/Docusate Sodium [Senna Plus] 2 each PO BID PRN tablet 10/30/17 [Rx] Warfarin [Coumadin] 2 mg PO 1800 12/02/17 [History] Atorvastatin [Lipitor] 80 mg PO HS 30 Days #60 tablet 12/05/17 [Rx] Albuterol Neb [Proventil Neb] 2.5 mg IH QID 12/28/17 [History] Ferrous Sulfate [Iron] 325 mg PO DAILY 12/28/17 [History] Metoprolol Succinate [Toprol Xl] 100 mg PO DAILY 12/28/17 [History] 3 Allergy/AdvReac Type Severity Reaction Status Date / Time aspirin Allergy Swelling Verified 10/23/17 15:50 of Lip/Tongue/Throat Review of Systems All Systems: reviewed and no additional remarkable complaints except as stated Exam - Vital Signs Vital signs: Initial Vital Signs Temp Pulse Resp BP Pulse Ox 97.3 F L 84 17 111/74 95 12/27/17 18:55 12/27/17 18:55 12/27/17 18:55 12/27/17 18:55 12/27/17 18:55 Vital Signs - Last 8 Hours Temp Pulse Resp BP Pulse Ox 12/28/17 07:46 97.6 F 108 14 117/79 97 12/28/17 04:05 97.5 F L 76 17 119/83 97 Intake and Output 12/27/17 12/28/17 12/28/17 23:59 07:59 15:59 Intake Total 500 / 500 Output Total 1000 / 1000 500 / 500 Balance -500 / -500 -500 / -500 Intake: Oral 500 / 500 Output: Urine 1000 / 1000 Catheter 500 / 500 Other: Weight 84 kg 84 kg Patient Weight 12/28/17 23:59 Weight 84 kg - General Appearance Exam: General appearance: well-developed, appears started age, chronically ill, frail EENT: ATNC, mucous membranes moist Additional Comments: Right eye blindness noted Neck: supple Respiratory: clear to auscultation without W/R/R Cardiology: holosystolic murmur, no edema bilaterally, irregular rhythm, normal S1, normal S2 Gastrointestinal: normoactive bowel sounds, no tenderness, no guarding, no organomegaly Integumentary: warm and dry Neurologic: no asterixis, alert and oriented x3 Additional Comments: Hard of hearing Musculoskeletal: no erythema, no cyanosis, no clubbing Psychiatric: mood/affect appropriate, cooperative Results - Lab Results 12/28/17 05:38 12/28/17 05:38 Most recent lab results Calcium 8.3 mg/dL (8.6-10.3) L 12/28/17 05:38 I reviewed the progress notes, labs, med lists, vitals and imaging. Consult Discharge Plan - Plan Referrals: Joshua Narvaez, ARMOR[facility] TECHNICIAN [Primary Care Provider] -
[2017-12-28] MEDS: CIPROFLOXACIN OPTH RIGHT EYE SCH ×2 (10:47→20:57)
--- NOTE | 2017-12-28 13:03 | Internal Med Progress Note ---
Date of Encounter: 12/28/17 Time of Encounter: 12:41 - Assessment and plan (1) Acute kidney injury superimposed on chronic kidney disease Current Visit: Yes Status: Resolved Assessment and plan: Secondary to urinary retention Huang catheter in place, good urine output noted renal function improved from previous day Nephrology evaluation appreciated continue IV fluids will continue to closely monitor renal function (2) Urinary retention Current Visit: Yes Status: Acute Assessment and plan: pt failed outpatient voiding trial Noted to have good urine output after huang placement urology evaluation appreciated pt will be discharged with huang catheter with outpatient follow up with urology (3) Afib Current Visit: Yes Status: Chronic Assessment and plan: rate controlled with BB anticoagulated with Coumadin noted to have subtherapeutic INR, unclear about pt compliance will continue Coumadin pharmacist to dose coumadin monitor INR, goal INR: 2-3 Qualifiers: Atrial fibrillation type: chronic Qualified Code(s): I48.2 - Chronic atrial fibrillation (4) DVT prophylaxis Current Visit: Yes Status: Acute Assessment and plan: coumadin - Subjective Interval history: Pt seen and examined at bedside. Pt has history of dementia and mental status waxes and wanes. Currently AAO x 2. Denies any distress at this time - Constitutional Vitals: Temp Pulse Resp BP Pulse Ox 97.4 F L 97 18 115/81 98 12/28/17 11:28 12/28/17 11:28 12/28/17 11:28 12/28/17 11:28 12/28/17 11:28 General appearance: Present: A&O X 2, no acute distress - Head Head exam: Present: atraumatic, normocephalic - Eye Eye exam: Present: conjuntiva pink, sclera anicteric (right eye ptosis/blindness ) - Respiratory Respiratory exam: Present: CTAB. Absent: respiratory distress, wheezes - Cardiovascular Cardiovascular exam: Present: RRR, +S1, +S2. Absent: diastolic murmur, gallop, rubs, systolic murmur - GI/Abdominal GI/Abdominal exam: Present: normal bowel sounds, soft. Absent: distended, tenderness - Extremities Exam Extremities exam: Present: warm, radial pulses palpable and symmetrical. Absent : calf tenderness - Neurological Exam Neurological exam: Present: alert Internal Medicine: Result - Labs CBC & Chem 7: 12/28/17 05:38 12/28/17 05:38 Labs: Short CBC 12/28/17 Range/Units 05:38 WBC 8.7 (4.3-11.1) K/mcL Hgb 9.3 L (12.9-16.9) g/dL Hct 31.0 L (37.5-50.1) % Plt Count 178 (140-400) K/mcL BMP 12/28/17 05:38 Sodium 140 Potassium 3.9 Chloride 108 H Carbon Dioxide 24 BUN 42 H Creatinine 2.12 H Glucose 78 Calcium 8.3 L - ABG Interpretation ABG results: PT/INR, D-dimer PT 14.6 Seconds (9.4-12.1) H 12/28/17 07:22 - VTE Reasons for not Prescribing Prophylaxis: Medical contraindication Consult Discharge Plan - Plan Referrals: Joshua Narvaez, [employer] [Primary Care Provider] -
[2017-12-28] MEDS ORDERED: Warfarin perPT PO PRN (18:00)
[2017-12-28] MEDS ORDERED: *HR* Warfarin 2 MG TABLET PO ONE (18:00)
[2017-12-29 01:48] LABS: Bilirubin,Urine Negative (Negative); Blood,Urine Moderate (Negative); Clarity,Urine Cloudy (Clear); Color,Urine Yellow (Yellow); Glucose,Urine (UA) Normal (Normal); Ketones,Urine Trace mg/dL (Negative); Leukocyte Esterase,Urine Small (Negative); Nitrite,Urine Negative (Negative); PH,Urine 5.5 pH Units (5.0-8.0); Protein,Urine 100 mg/dL (Neg-Trace); Urobilinogen,Urine Normal (Normal)
[2017-12-29 01:50] LABS: Sodium, Urine 130.6 mEq/L
[2017-12-29 01:52] LABS: Bacteria,Urine None Seen per hpf (None-Few); Hyaline Casts,Urine None Seen per lpf (None-Few); Squamous Epithelial Cell,Urine Many per lpf (None-Few); WBC,Urine 15-30 per hpf (0-3)
[2017-12-29 06:14] LABS: Basophils % 0.4 %; Eosinophils # 0.4 K/mcL (0.0-0.6); Eosinophils % 6.4 %; Hematocrit 32.4 % (37.5-50.1); Hemoglobin 9.2 g/dL (12.9-16.9); Immature Granulocytes % 0.4 % (0-4); Lymphocytes # 1.5 K/mcL (0.6-4.6); Lymphocytes % 22.1 %; Mean Corpuscular HGB Conc 28.4 g/dL (31.6-35.5); Mean Corpuscular Hemoglobin 21.7 pg (28.0-33.3); Mean Corpuscular Volume 76.4 fL (83.0-100.0); Mean Platelet Volume 10.9 fL (9.4-12.4); Monocytes # 0.7 K/mcL (0.0-1.3); Monocytes % 9.4 %; Neutrophils # 4.2 K/mcL (1.6-8.9); Platelet Count 177 K/mcL (140-400); Red Blood Count 4.24 M/mcL (4.19-5.50); Red Cell Distribution Width 19.7 % (11.5-14.5); Segmented Neutrophils % 61.3 %
[2017-12-29 06:18] LABS: INR 1.3; Prothrombin Time 13.9 Seconds (9.4-12.1)
[2017-12-29 06:34] LABS: BUN/Creatinine Ratio 25 (6-26); Blood Urea Nitrogen 31 mg/dL (8-23); Calcium 8.6 mg/dL (8.6-10.3); Carbon Dioxide 23 mEq/L (23-29); Chloride 110 mEq/L (98-107); Glucose 101 mg/dL (70-105); Magnesium 1.8 mg/dL (1.6-2.6); Osmolality,Calculated 299 (280-300); Phosphorous 3.1 mg/dL (2.7-4.5); Potassium 3.9 mEq/L (3.5-5.1); Sodium 141 mEq/L (136-145); eGFR For African Americans > 60 (> 60); eGFR For Non-African Americans 56 (> 60)
[2017-12-29 06:50] LABS: Anisocytosis 1+ (Not Present); Platelet Estimate Normal (Normal)
[2017-12-29 06:52] LABS: Hypochromasia Present (Not Present)
[2017-12-29] MEDS: Multivit/Ca/Min/Fe/FA 1 TAB TABLET PO SCH (08:41)
[2017-12-29] MEDS: Metoprolol 100 MG TABLET PO SCH ×2 (08:41→20:41)
[2017-12-29] MEDS: Diltiazem CD (24hr) 180 MG CAPSULE PO SCH (08:41)
[2017-12-29] MEDS: CIPROFLOXACIN OPTH RIGHT EYE SCH ×2 (08:42→20:40)
--- NOTE | 2017-12-29 10:45 | Event Note ---
Date of Encounter: 12/29/17 Time of Encounter: 10:43 Nephrology Chart review Pt's renal function has rapidly corrected upon placement of the huang, which points towards a post-renal etiology for the RUDDY. He has rapid improvement with near resolution of his renal dysfunction, so will sign-off. Please feel free to call and/or page me with any questions. Thank you.
--- NOTE | 2017-12-29 14:01 | Internal Med Progress Note ---
Date of Encounter: 12/29/17 Time of Encounter: 13:58 - Assessment and plan (1) Acute kidney injury superimposed on chronic kidney disease Current Visit: Yes Status: Resolved Assessment and plan: Secondary to urinary retention Huang catheter in place, good urine output noted renal function returned to baseline Nephrology evaluation appreciated will continue to closely monitor renal function (2) Urinary retention Current Visit: Yes Status: Acute Assessment and plan: pt failed outpatient voiding trial Noted to have good urine output after huang placement urology evaluation appreciated pt will be discharged with huang catheter with outpatient follow up with urology (3) Afib Current Visit: Yes Status: Chronic Assessment and plan: rate controlled with BB anticoagulated with Coumadin noted to have subtherapeutic INR, unclear about pt compliance will continue Coumadin pharmacist to dose coumadin monitor INR, goal INR: 2-3 Qualifiers: Atrial fibrillation type: chronic Qualified Code(s): I48.2 - Chronic atrial fibrillation (4) DVT prophylaxis Current Visit: Yes Status: Acute Assessment and plan: coumadin - Subjective Interval history: Pt seen and examined at bedside. Pt has history of dementia and mental status waxes and wanes. Currently AAO x 2. Denies any distress at this time. Awaiting PT/OT evaluation tentative d/c in am after PT evaluation - Constitutional Vitals: Temp Pulse Resp BP Pulse Ox 97.6 F 80 15 121/76 97 12/29/17 12:30 12/29/17 12:30 12/29/17 12:30 12/29/17 12:30 12/29/17 12:30 General appearance: Present: A&O X 2, no acute distress - Head Head exam: Present: atraumatic, normocephalic - Eye Eye exam: Present: conjuntiva pink, sclera anicteric Additional comments: right eye blindness - Respiratory Respiratory exam: Present: CTAB. Absent: respiratory distress, wheezes - Cardiovascular Cardiovascular exam: Present: RRR, +S1, +S2 - GI/Abdominal GI/Abdominal exam: Present: normal bowel sounds, soft, no peritoneal signs. Absent: distended, tenderness - Extremities Exam Extremities exam: Present: warm, radial pulses palpable and symmetrical. Absent : calf tenderness, pedal edema - Neurological Exam Neurological exam: Present: alert Internal Medicine: Result - Labs CBC & Chem 7: 12/29/17 05:59 12/29/17 05:59 Labs: Short CBC 12/29/17 Range/Units 05:59 WBC 6.9 (4.3-11.1) K/mcL Hgb 9.2 L (12.9-16.9) g/dL Hct 32.4 L (37.5-50.1) % Plt Count 177 (140-400) K/mcL Neutrophils # 4.2 (1.6-8.9) K/mcL BMP 12/29/17 05:59 Sodium 141 Potassium 3.9 Chloride 110 H Carbon Dioxide 23 BUN 31 H Creatinine 1.23 Glucose 101 Calcium 8.6 Urine 12/29/17 Range/Units 01:38 Urine Color Yellow (Yellow) Urine Clarity Cloudy A (Clear) Urine pH 5.5 (5.0-8.0) pH Units Ur Specific [place] 1.020 (1.010-1.025) Urine Protein 100 H (Neg-Trace) mg/dL Urine Glucose (UA) Normal (Normal) mg/dL - ABG Interpretation ABG results: PT/INR, D-dimer PT 13.9 Seconds (9.4-12.1) H 12/29/17 05:59 - VTE Reasons for not Prescribing Prophylaxis: Medical contraindication Consult Discharge Plan - Plan Referrals: Joshua Narvaez, [employer] [Primary Care Provider] -
[2017-12-29] MEDS ORDERED: *HR* Warfarin 2 MG TABLET PO ONE (18:00)
[2017-12-29] MEDS ORDERED: Melatonin 3 MG TABLET PO PRN (23:42)
[2017-12-30 07:05] LABS: Basophils % 0.3 %; Eosinophils # 0.5 K/mcL (0.0-0.6); Hematocrit 30.9 % (37.5-50.1); Immature Granulocytes % 0.7 % (0-4); Lymphocytes # 1.7 K/mcL (0.6-4.6); Lymphocytes % 28.1 %; Mean Corpuscular HGB Conc 29.1 g/dL (31.6-35.5); Mean Corpuscular Hemoglobin 22.2 pg (28.0-33.3); Mean Corpuscular Volume 76.3 fL (83.0-100.0); Mean Platelet Volume 11.2 fL (9.4-12.4); Monocytes # 0.6 K/mcL (0.0-1.3); Neutrophils # 3.1 K/mcL (1.6-8.9); Platelet Count 180 K/mcL (140-400); Red Blood Count 4.05 M/mcL (4.19-5.50); Red Cell Distribution Width 19.6 % (11.5-14.5); Segmented Neutrophils % 52.9 %
[2017-12-30 07:15] LABS: INR 1.5; Prothrombin Time 16.1 Seconds (9.4-12.1)
[2017-12-30 07:23] LABS: BUN/Creatinine Ratio 21 (6-26); Blood Urea Nitrogen 20 mg/dL (8-23); Calcium 8.7 mg/dL (8.6-10.3); Carbon Dioxide 25 mEq/L (23-29); Chloride 107 mEq/L (98-107); Glucose 96 mg/dL (70-105); Magnesium 1.5 mg/dL (1.6-2.6); Osmolality,Calculated 292 (280-300); Phosphorous 3.9 mg/dL (2.7-4.5); Potassium 3.6 mEq/L (3.5-5.1); Sodium 140 mEq/L (136-145); eGFR For African Americans > 60 (> 60); eGFR For Non-African Americans > 60 (> 60)
[2017-12-30] MEDS: Metoprolol 100 MG TABLET PO SCH (08:08)
[2017-12-30] MEDS: Multivit/Ca/Min/Fe/FA 1 TAB TABLET PO SCH (08:08)
[2017-12-30] MEDS: Diltiazem CD (24hr) 180 MG CAPSULE PO SCH (08:09)
[2017-12-30] MEDS: CIPROFLOXACIN OPTH RIGHT EYE SCH (08:09)
--- NOTE | 2017-12-30 12:50 | Discharge Summary ---
Date of Encounter: 12/30/17 Time of Encounter: 12:47 - Discharge Diagnosis (1) Acute kidney injury superimposed on chronic kidney disease Priority: Primary Status: Resolved (2) Urinary retention Priority: Primary Status: Acute (3) Afib Priority: Secondary Status: Chronic Qualifiers: Atrial fibrillation type: chronic Qualified Code(s): I48.2 - Chronic atrial fibrillation (4) DVT prophylaxis Priority: Secondary Status: Acute - Discharge Medications Home Medications: Multivit-Min/FA/Lycopen/Lutein [Men 50 Plus Multivitamin Tab] 1 tab PO DAILY 05/04 [History] Vitamin E Acetate [Vitamin E] 400 unit PO DAILY 10/23/17 [History] Diltiazem CD (24hr) [Cardizem CD] 360 mg PO DAILY cap.er.24h 10/30/17 [Rx] Sennosides/Docusate Sodium [Senna Plus] 2 each PO BID PRN tablet 10/30/17 [Rx] Warfarin [Coumadin] 2 mg PO SUMOTUTHFRSA@1800 12/02/17 [History] Atorvastatin [Lipitor] 80 mg PO HS 30 Days #60 tablet 12/05/17 [Rx] Albuterol Neb [Proventil Neb] 2.5 mg IH QID 12/28/17 [History] Ferrous Sulfate [Iron] 325 mg PO DAILY 12/28/17 [History] Metoprolol Succinate [Toprol Xl] 100 mg PO DAILY 12/28/17 [History] Warfarin [Coumadin] 3 mg PO WE@1800 12/30/17 [History] Allergies/Adverse Reactions: 3 Allergy/AdvReac Type Severity Reaction Status Date / Time aspirin Allergy Swelling Verified 10/23/17 15:50 of Lip/Tongue/Throat Date of admission: 12/27/17 22:41 Primary care physician: Joshua Narvaez CNP Consults: 12/27/17 22:39 Consult to Nephrology [CONS] Routine Consulting Provider: Kidney Kim/BRYN/KIM/NITIN Reason for Consult: Acute on chronic kidney injury Time Notified: 22:40 Call Completed: No Consult to Urology [CONS] Routine Consulting Provider: Urology Kim Reason for Consult: Urinary retention requiring chronic Huang catheter Time Notified: 22:40 Call Completed: No 12/29/17 13:58 Consult to Physical Therapy [CONS] Routine Comment: Evaluate, develop and implement POC Reason for Consult: Decreased steadiness OT [Consult to Occupational Therapy] [CONS] Routine Comment: Evaluate, develop and implement POC Reason for Consult: evaluation Discharging clinician: Rebecca Moise Anticipated date of discharge: 12/30/17 - Patient Status Disposition: Home, Self-Care Condition: Good Overall status at discharge: patient is back to baseline - Ambulatory Orders Ambulatory Orders: Prothrombin Time INR [COAG] Time Frame: 5 Days, Facility: [facility], Location: Lab - Discharge Instructions Follow Up With: Joshua Narvaez CLINICAL PHLEBOTOMIST [Primary Care Provider] - Additional Instructions: Please follow up with your primary care physician within five days after your discharge from the hospital. Please follow up with urology within one week after your discharge from the hospital Please continue huang support until your follow up with urology Please inform your primary care about your INR levels and ask them to adjust the coumadin dose as per your INR value. Resume all other medications as prescribed by your primary care physician. - Diet and Activity Activity: resume usual activities as tolerated Diet: low salt diet Hospital course: Mr. Abreu is a 82 year old male with PMH of dementia, CKD stage III, asthma and A. fib who was admitted for RUDDY on CKD secondary to urinary retention. He had a huang cath placed in the ER. Nephrology and urology evaluated the patient. Pt's renal function returned to baseline after huang support. He will be discharged with huang cath with outpatient follow up with urology and pcp. Pt 's mental status waxes and wanes, at this time he is AAO x 3, reports of living with his at home. Pt is medically stable for discharge to home today. discharge pending PT/OT evaluation - Time Spent with Patient Total time spent providing and/or coordinating discharge services: Less than 30 minutes - Constitutional Vitals: Temp Pulse Resp BP Pulse Ox 97.6 F 74 16 113/77 96 12/30/17 11:45 12/30/17 11:45 12/30/17 11:45 12/30/17 11:45 12/30/17 11:45 General appearance: Present: A&O X 3, no acute distress - Head Head exam: Present: atraumatic, normocephalic - Respiratory Respiratory exam: Present: CTAB. Absent: accessory muscle use, rales, rhonchi, wheezes - Cardiovascular Cardiovascular exam: Present: RRR, +S1, +S2. Absent: diastolic murmur, gallop, rubs, systolic murmur - GI/Abdominal GI/Abdominal exam: Present: normal bowel sounds, soft, no peritoneal signs. Absent: distended, tenderness - Extremities Exam Extremities exam: Present: warm, radial pulses palpable and symmetrical. Absent : calf tenderness, pedal edema - Neurological Exam Neurological exam: Present: oriented X3 - VTE Reasons for not Prescribing Prophylaxis: Medical contraindication
[2017-12-30 15:50] VITALS: BP 132/84
[2017-12-30] MEDS ORDERED: *HR* Warfarin 2 MG TABLET PO ONE (18:00)
[2017-12-31] MEDS ORDERED: Metoprolol XL (24 HR) Succ 50 MG TAB.ER.24H PO SCH (09:00)
== END 2017-12-30 16:30 | disposition home or self-care (01) | DRG 682 ==
LOC: 2ANU
PROVIDERS: ADMIT Internal Medicine Cardiovascular Disease; ATTEND Internal Medicine

== ENCOUNTER 2021-01-10 13:52 | Inpatient (IN) ==
[~2021-01-10 13:52] MED LIST: *HR* Propofol 200 MG/20 ML VIAL IVP ONE; Lidocaine -MPF 2% 5 ML VIAL INFILT ONE
[2021-01-10] MEDS ORDERED: Naloxone 0.4 MG/ML INJ IVP PRN (17:26)
[2021-01-10] MEDS ORDERED: Acetaminophen 325 MG TABLET PO PRN (17:26)
[2021-01-10] MEDS ORDERED: *HR* Metoprolol 5 MG/5 ML VIAL IVP PRN (17:31)
[2021-01-10] MEDS: Pantoprazole 40 MG in 0.9 % Sodium Chloride Mini Bag 100 ML IVC SCH (18:01)
[2021-01-10 18:05] LABS: Basophils % 0.3 %; Eosinophils # 0.1 K/mcL (0.0-0.6); Eosinophils % 0.6 %; Hematocrit 25.6 % (37.5-50.1); Hemoglobin 7.9 g/dL (12.9-16.9); Immature Granulocytes % 0.6 % (0-4); Lymphocytes # 1.3 K/mcL (0.6-4.6); Lymphocytes % 11.4 %; Mean Corpuscular HGB Conc 30.9 g/dL (31.6-35.5); Mean Corpuscular Hemoglobin 28.9 pg (28.0-33.3); Mean Corpuscular Volume 93.8 fL (83.0-100.0); Mean Platelet Volume 10.9 fL (9.4-12.4); Monocytes # 0.9 K/mcL (0.0-1.3); Monocytes % 8.1 %; Neutrophils # 9.1 K/mcL (1.6-8.9); Nucleated Red Blood Cells 0.2 /100 WBC (0); Platelet Count 195 K/mcL (140-400); Red Blood Count 2.73 M/mcL (4.19-5.50); White Blood Count 11.5 K/mcL (4.3-11.1)
[2021-01-10 18:05] LABS: VBG Ionized Calcium 0.95 mmol/L (1.15-1.35)
[2021-01-10 18:09] LABS: INR 2.7; Prothrombin Time 30.1 Seconds (9.4-12.1)
[2021-01-10 18:22] LABS: Albumin 3.4 g/dL (3.5-5.7); Albumin/Globulin Ratio 1.7 (1.1-2.2); Bilirubin,Direct 0.1 mg/dL (0.0-0.2); Bilirubin,Indirect 0.4 mg/dL (0.0-1.0); Bilirubin,Total 0.5 mg/dL (0.3-1.0); Calcium 7.9 mg/dL (8.6-10.3); Magnesium 2.2 mg/dL (1.6-2.6); Phosphorous 2.9 mg/dL (2.7-4.5); Potassium 4.2 mEq/L (3.5-5.1); Total Protein 5.4 g/dL (6.4-8.9)
[2021-01-10] MEDS ORDERED: 0.9 % Sodium Chloride 500 ML ONE (21:21)
[2021-01-11] MEDS: Pantoprazole 40 MG in 0.9 % Sodium Chloride Mini Bag 100 ML IVC SCH ×5 (00:25→23:02)
[2021-01-11 05:55] LABS: VBG Ionized Calcium 1.02 mmol/L (1.15-1.35)
[2021-01-11 06:00] LABS: Basophils % 0.4 %; Eosinophils # 0.3 K/mcL (0.0-0.6); Eosinophils % 2.6 %; Hematocrit 27.6 % (37.5-50.1); Hemoglobin 8.5 g/dL (12.9-16.9); Immature Granulocytes % 0.7 % (0-4); Lymphocytes # 1.2 K/mcL (0.6-4.6); Lymphocytes % 12.2 %; Mean Corpuscular HGB Conc 30.8 g/dL (31.6-35.5); Mean Corpuscular Hemoglobin 29.1 pg (28.0-33.3); Mean Corpuscular Volume 94.5 fL (83.0-100.0); Mean Platelet Volume 10.6 fL (9.4-12.4); Monocytes # 0.9 K/mcL (0.0-1.3); Monocytes % 8.7 %; Neutrophils # 7.4 K/mcL (1.6-8.9); Platelet Count 143 K/mcL (140-400); Red Blood Count 2.92 M/mcL (4.19-5.50); Segmented Neutrophils % 75.4 %; White Blood Count 9.9 K/mcL (4.3-11.1)
[2021-01-11 06:12] LABS: INR 1.4
[2021-01-11 06:15] LABS: Activated Partial Thrombo Time 29.1 Seconds (26.0-36.0)
[2021-01-11 06:54] LABS: Albumin 3.5 g/dL (3.5-5.7); Albumin/Globulin Ratio 1.5 (1.1-2.2); Bilirubin,Direct 0.1 mg/dL (0.0-0.2); Bilirubin,Indirect 0.6 mg/dL (0.0-1.0); Bilirubin,Total 0.7 mg/dL (0.3-1.0); Globulin 2.3 g/dL (2.4-3.5); Magnesium 2.3 mg/dL (1.6-2.6); Phosphorous 2.9 mg/dL (2.7-4.5); Potassium 3.8 mEq/L (3.5-5.1); Total Protein 5.8 g/dL (6.4-8.9); Troponin I 0.06 ng/mL (< 0.04)
[2021-01-11] MEDS ORDERED: cefTRIAXone 1,000 MG in Water for inj. (sterile) 10 ML IVP SCH (09:00)
[2021-01-11] MEDS ORDERED: Metoclopramide 10 MG/2 ML VIAL IVP ONE (12:19)
[2021-01-11] MEDS ORDERED: Ringers Solution, Lactated 500 ML ONE (14:10)
[2021-01-11] MEDS: Ringers Solution, Lactated 500 ML IVC SCH ×2 (14:24→19:32)
[2021-01-11] MEDS ORDERED: Ipratropium/Albuterol Neb 3 ML IH PRN (22:18)
[2021-01-11] MEDS ORDERED: *HR* Metoprolol 5 MG/5 ML VIAL IVP PRN (22:18)
[2021-01-11] MEDS ORDERED: Naloxone 0.4 MG/ML INJ IVP PRN (22:18)
[2021-01-11] MEDS ORDERED: Acetaminophen 325 MG TABLET PO PRN (22:18)
[2021-01-11 22:53] LABS: Hematocrit 30.5 % (37.5-50.1); Hemoglobin 9.5 g/dL (12.9-16.9)
[2021-01-11] MEDS ORDERED: Melatonin 3 MG TABLET PO ONE (22:55)
[2021-01-12] MEDS: Pantoprazole 40 MG in 0.9 % Sodium Chloride Mini Bag 100 ML IVC SCH ×2 (03:53→09:19)
[2021-01-12 04:36] LABS: Basophils # 0.1 K/mcL (0.0-0.2); Basophils % 0.3 %; Eosinophils % 0.2 %; Hematocrit 30.9 % (37.5-50.1); Hemoglobin 9.2 g/dL (12.9-16.9); Immature Granulocytes % 0.7 % (0-4); Lymphocytes # 1.1 K/mcL (0.6-4.6); Lymphocytes % 7.2 %; Mean Corpuscular HGB Conc 29.8 g/dL (31.6-35.5); Mean Corpuscular Volume 97.5 fL (83.0-100.0); Mean Platelet Volume 11.2 fL (9.4-12.4); Monocytes # 1.2 K/mcL (0.0-1.3); Monocytes % 7.6 %; Nucleated Red Blood Cells 0.3 /100 WBC (0); Platelet Count 222 K/mcL (140-400); Red Blood Count 3.17 M/mcL (4.19-5.50); Red Cell Distribution Width 17.1 % (11.5-14.5); White Blood Count 15.9 K/mcL (4.3-11.1)
[2021-01-12 04:40] LABS: Neutrophils # 13.4 K/mcL (1.6-8.9)
[2021-01-12 04:42] LABS: INR 1.4; Prothrombin Time 15.5 Seconds (9.4-12.1)
[2021-01-12 04:52] LABS: Albumin 3.8 g/dL (3.5-5.7); Albumin/Globulin Ratio 1.6 (1.1-2.2); Calcium 8.5 mg/dL (8.6-10.3); Globulin 2.4 g/dL (2.4-3.5); Potassium 4.2 mEq/L (3.5-5.1); Total Protein 6.2 g/dL (6.4-8.9)
[2021-01-12] MEDS: DilTIAZem CD (24hr) 180 MG CAP.ER.24H PO SCH (09:20)
[2021-01-12] MEDS: Metoprolol XL (24 HR) Succ 50 MG TAB.ER.24H PO SCH (09:20)
[2021-01-12] MEDS: cefTRIAXone 1,000 MG in Water for inj. (sterile) 10 ML IVP SCH (09:21)
[2021-01-12] MEDS: predniSONE 20 MG TABLET PO SCH (13:00)
[2021-01-12] MEDS: Ipratropium/Albuterol Neb 3 ML IH SCH ×4 (13:55→23:35)
[2021-01-13 01:07] LABS: Basophils % 0.1 %; Hematocrit 26.2 % (37.5-50.1); Hemoglobin 8.1 g/dL (12.9-16.9); Immature Granulocytes % 0.7 % (0-4); Lymphocytes # 0.8 K/mcL (0.6-4.6); Lymphocytes % 6.8 %; Mean Corpuscular HGB Conc 30.9 g/dL (31.6-35.5); Mean Corpuscular Hemoglobin 29.5 pg (28.0-33.3); Mean Corpuscular Volume 95.3 fL (83.0-100.0); Mean Platelet Volume 10.9 fL (9.4-12.4); Monocytes # 0.5 K/mcL (0.0-1.3); Neutrophils # 10.4 K/mcL (1.6-8.9); Nucleated Red Blood Cells 0.2 /100 WBC (0); Platelet Count 182 K/mcL (140-400); Red Blood Count 2.75 M/mcL (4.19-5.50); Red Cell Distribution Width 17.4 % (11.5-14.5); Segmented Neutrophils % 88.4 %; White Blood Count 11.7 K/mcL (4.3-11.1)
[2021-01-13 01:27] LABS: Calcium 8.4 mg/dL (8.6-10.3); Magnesium 2.4 mg/dL (1.6-2.6); Phosphorous 3.5 mg/dL (2.7-4.5); Potassium 4.4 mEq/L (3.5-5.1)
[2021-01-13] MEDS: Ipratropium/Albuterol Neb 3 ML IH SCH ×6 (04:00→23:45)
[2021-01-13] MEDS: predniSONE 20 MG TABLET PO SCH (08:47)
[2021-01-13] MEDS: cefTRIAXone 1,000 MG in Water for inj. (sterile) 10 ML IVP SCH (08:47)
[2021-01-13] MEDS: DilTIAZem CD (24hr) 180 MG CAP.ER.24H PO SCH (09:09)
[2021-01-13] MEDS: Metoprolol XL (24 HR) Succ 50 MG TAB.ER.24H PO SCH (09:09)
[2021-01-14] MEDS ORDERED: Haloperidol Lactate 5 MG/ML VIAL IVP ONE (03:28)
[2021-01-14] MEDS: Ipratropium/Albuterol Neb 3 ML IH SCH ×5 (03:51→19:30)
[2021-01-14] MEDS: predniSONE 20 MG TABLET PO SCH (09:56)
[2021-01-14] MEDS: DilTIAZem CD (24hr) 180 MG CAP.ER.24H PO SCH (09:56)
[2021-01-14] MEDS: Metoprolol XL (24 HR) Succ 50 MG TAB.ER.24H PO SCH (09:56)
[2021-01-14 10:41] LABS: Basophils % 0.1 %; Eosinophils # 0.1 K/mcL (0.0-0.6); Eosinophils % 0.5 %; Hematocrit 27.9 % (37.5-50.1); Hemoglobin 8.7 g/dL (12.9-16.9); Immature Granulocytes % 0.6 % (0-4); Lymphocytes # 1.2 K/mcL (0.6-4.6); Lymphocytes % 10.3 %; Mean Corpuscular HGB Conc 31.2 g/dL (31.6-35.5); Mean Corpuscular Volume 96.2 fL (83.0-100.0); Monocytes # 0.9 K/mcL (0.0-1.3); Monocytes % 7.6 %; Neutrophils # 9.5 K/mcL (1.6-8.9); Platelet Count 225 K/mcL (140-400); Red Cell Distribution Width 17.5 % (11.5-14.5); Segmented Neutrophils % 80.9 %; White Blood Count 11.7 K/mcL (4.3-11.1)
[2021-01-14 11:00] LABS: Calcium 8.4 mg/dL (8.6-10.3); Magnesium 2.4 mg/dL (1.6-2.6); Phosphorous 2.6 mg/dL (2.7-4.5); Potassium 3.8 mEq/L (3.5-5.1)
[2021-01-14 17:38] LABS: Adenovirus Not Detected (Not Detect); Bordetella Pertussis Not Detected (Not Detect); Chlamydophila pneumoniae Not Detected (Not Detect); Coronavirus 229E Not Detected (Not Detect); Coronavirus HKU1 Not Detected (Not Detect); Coronavirus NL63 Not Detected (Not Detect); Coronavirus OC43 Not Detected (Not Detect); Human Metapneumovirus Not Detected (Not Detect); Human Rhinovirus/Enterovirus Not Detected (Not Detect); Influenza A Subtype 2009 H1 Not Detected (Not Detect); Influenza B Not Detected (Not Detect); Mycoplasma pneumoniae Not Detected (Not Detect); Parainfluenza Virus 1 Not Detected (Not Detect); Parainfluenza Virus 2 Not Detected (Not Detect); Parainfluenza Virus 3 Not Detected (Not Detect); Parainfluenza Virus 4 Not Detected (Not Detect); Respiratory Syncytial Virus Not Detected (Not Detect); SARS-CoV-2 Not Detected (Not Detect)
[2021-01-14 18:36] VITALS: BP 124/75
== END 2021-01-14 20:00 | DRG 374 ==
LOC: ICNU → SUATTDRO 17:38 → 3ANU 01-12 21:00
PROVIDERS: ADMIT Pediatrics; ATTEND Internal Medicine
PROC: ENDOEBX (2021-01-11 12:15)